=== PATIENT | male | born 1945 | race Caucasian/White ===

== ENCOUNTER 2017-02-26 15:44 | Emergency (ER) | payer MEDICARE, SELFPAY ==
[2017-02-26] MEDS ORDERED: Sodium Chloride 0.9% 10 ML Syringe FLUSH PRN (15:50)
[2017-02-26] MEDS ORDERED: Nitroglycerin 0.4 MG Tab.SL SL PRN (16:00)
--- NOTE | 2017-02-26 16:03 | EDM.PDOC ---
ED HISTORY OF PRESENT ILLNESS - General Chief Complaint: Chest Pain Stated Complaint: Chest pain Time Seen by Provider: 02/26/17 15:50 Source of Information: Reports: Patient History Limitations: Reports: No limitations - History of Present Illness INITIAL COMMENTS - FREE TEXT/NARRATIVE: Patient complains of centralized non-radiating pain in chest present for approximately 24 hours. ROS negative for other complaints. Tried 1 nitro at home but no change. Had stent placed three days ago at [facility]. Patient has had similar pain in past. Rather vague with his history and was not able to say if prior pain in same area was directly linked to cardiac causation. Nothing specifically makes pain better/worse. This includes eating/drinking/ breathing/moving/sitting up/laying down. - Related Data Allergies/ADRs: Allergies Allergy/AdvReac Type Severity Reaction Status Date / Time levofloxacin [From Levaquin] Allergy Dizziness Verified 02/26/17 15:47 Sulfa (Sulfonamide Allergy Cannot Verified 02/26/17 15:47 Antibiotics) Remember Home Meds: Home Meds Aspirin [Halfprin] 81 mg PO MOWEFR 07/29/15 [History] Calcium Carbonate/Vitamin D3 [Calcium 600 + Vit D 200] 1 each PO DAILY 07/29/15 [History] Carvedilol 3.125 mg PO BIDMEALS 07/29/15 [History] Escitalopram [Lexapro] 5 mg PO DAILY 07/29/15 [History] Nitroglycerin [Nitrostat] 0.4 mg SL Q5M PRN 07/29/15 [History] Phenytoin Sodium Extended [Dilantin] 100 mg PO DAILY@07/29/15 [History] Phenytoin Sodium Extended [Dilantin] 200 mg PO BID 07/29/15 [History] Sertraline [Zoloft] 100 mg PO DAILY 07/29/15 [History] Ticagrelor [Brilinta] 90 mg PO BID 07/29/15 [History] Vitamin E 600 cap PO DAILY 07/29/15 [History] atorvaSTATin [Lipitor] 40 mg PO BEDTIME 07/29/15 [History] levETIRAcetam [Keppra] 1,000 mg PO DAILY@15 07/29/15 [History] levETIRAcetam [Keppra] 2,000 mg PO BID 07/29/15 [History] traMADol HCl [Tramadol HCl] 50 mg PO Q6H PRN 07/29/15 [History] Bisacodyl [Dulcolax] 10 mg RC DAILY PRN 02/26/17 [History] Ibuprofen [Motrin] 200 mg PO Q4H PRN 02/26/17 [History] Isosorbide Mononitrate [Imdur] 30 mg PO QAM #30 tab.er 02/26/17 [Rx] Melatonin 3 mg PO BEDTIME PRN 02/26/17 [History] Oxybutynin 5 mg PO BID 02/26/17 [History] Sennosides/Docusate Sodium [Senna S Tablet] 1 each PO BID PRN 02/26/17 [History] Past Medical History Cardiovascular History: Reports: CAD, High cholesterol, Hypertension, Stents, Other (see below) (bradycardia, PVCs,) Respiratory History: Reports: Sleep apnea Gastrointestinal History: Reports: PUD Musculoskeletal History: Reports: Osteoarthritis Neurological History: Reports: Headaches, chronic, Seizure Psychiatric History: Reports: Anxiety, Depression Endocrine/Metabolic History: Reports: Obesity/BMI 30+ Social & Family History - Tobacco Use Smoking Status *Q: Never Smoker - Alcohol Use Days Per Week of Alcohol Use: 0 (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 Denies: Shortness of Breath, Wheezing, Pleuritic Chest Pain, Cough, Sputum, Hemoptysis Cardiovascular: Reports: Chest pain (see HPI). Denies: Lightheadedness, Palpitations, Syncope GI/Abdominal: Reports: No symptoms : Reports: no symptoms Musculoskeletal: Reports: no symptoms Skin: Reports: no symptoms Neurological: Reports: No Symptoms Psychiatric: Reports: No symptoms ED EXAM, GENERAL - Physical Exam Exam: See Below Exam Limited By: No limitations General Appearance: alert, WD/WN, no apparent distress, obese Eye Exam: bilateral eye: EOMI, normal inspection, PERRL Ears: normal external exam, normal canal, hearing grossly normal, normal TMs Nose: normal inspection Throat/Mouth: Normal inspection, Normal lips, Normal oropharynx, Normal voice, No airway compromise Head: atraumatic, normocephalic Neck: normal inspection, supple, non-tender, full range of motion. No: carotid bruit, lymphadenopathy (L), lymphadenopathy (R) Respiratory/Chest: no respiratory distress, lungs clear, normal breath sounds, no accessory muscle use, chest non-tender Cardiovascular: regular rate, rhythm, no edema, no murmur, bradycardia Peripheral Pulses: 2+: radial (L), radial (R), dorsalis pedis (L), dorsalis pedis (R) GI/Abdominal: normal bowel sounds, soft, non tender, no distention (Male) Exam: Deferred Rectal (Males) Exam: Deferred Back Exam: normal inspection. No: CVA tenderness (L), CVA tenderness (R) Extremities: normal inspection, normal range of motion, non-tender, no pedal edema, normal capillary refill Neurological: alert, oriented, CN II-XII intact, normal cognition, normal gait, normal reflexes, no motor/sensory deficits Psychiatric: normal affect, normal mood Skin Exam: Warm, Dry, Intact, Normal color EKG INTERPRETATION EKG Date: 02/26/17 Time: 15:50 Rhythm: NSR Rate (beats/min): 56 [place]: normal P-wave: present QRS: normal ST-T: normal QT: normal Comparison: no change Course - Vital Signs Last Recorded V/S: Last Vital Signs Temp 36.9 C 02/26/17 15:45 Pulse 54 L 02/26/17 18:11 Resp 14 02/26/17 18:11 BP 139/71 02/26/17 18:11 Pulse Ox 100 02/26/17 18:11 - Orders/Labs/Meds Orders: Active Orders 24 hr Category Date Time Status Cardiac Monitoring [RC] . DIRECTED Care 02/26/17 15:50 Active EKG Documentation Completion [RC] ASDIRECTED Care 02/26/17 15:48 Active Oxygen Therapy, ED [RC] ASDIRECTED Care 02/26/17 15:50 Active Peripheral IV Care [RC] . DIRECTED Care 02/26/17 15:50 Active Chest 1V Frontal [CR] Stat Exams 02/26/17 15:49 Taken URINALYSIS W/MICROSCOPIC [UA W/MICROSCOPIC] [URIN] Stat Lab 02/26/17 15:49 Uncollected Sodium Chloride 0.9% [Saline Flush] Med 02/26/17 15:50 Active 10 ml FLUSH ASDIRECTED PRN Peripheral IV Insertion Adult [OM.PC] Routine Oth 02/26/17 15:50 Ordered Medication Orders Sodium Chloride (Saline Flush) 10 ml FLUSH ASDIRECTED PRN PRN Reason: Keep Vein Open Labs: Laboratory Tests 02/26/17 02/26/17 02/26/17 Range/Units 16:05 16:05 16:05 WBC 7.5 (4.0-10.2) K/uL RBC 4.58 (4.33-5.41) M/uL Hgb 13.7 D (13.1-16.8) g/dL Hct 42.8 (39.0-49.0) % MCV 93.4 (84.0-98.0) fL MCH 29.9 (28.2-33.3) pg MCHC 32.0 (31.7-36.0) g/dL RDW 13.1 (11.2-14.1) % Plt Count 273 (150-350) K/uL Neut % (Auto) 57.6 (45.0-80.0) % Lymph % (Auto) 27.5 (10.0-50.0) % Emanuel % (Auto) 11.4 (2.0-14.0) % Eos % (Auto) 2.4 (0.0-5.0) % Baso % (Auto) 1.1 (0.0-2.0) % Neut # (Auto) 4.30 (1.40-7.00) K/uL Lymph # (Auto) 2.05 (0.50-3.50) K/uL Emanuel # (Auto) 0.85 (0.00-1.00) K/uL Eos # (Auto) 0.18 (0.00-0.50) K/uL Baso # (Auto) 0.08 (0.00-0.20) K/uL PT 11.1 (9.8-11.7) SEC INR 1.0 Sodium 140 (136-145) mmol/L Potassium 4.4 (3.5-5.1) mmol/L Chloride 104 (98-107) mmol/L Carbon Dioxide 27.8 (21.0-32.0) mmol/L BUN 18 (7-18) mg/dL Creatinine 0.91 (0.51-1.17) mg/dL Est Cr Clr Drug Dosing 89.11 mL/min Estimated GFR (MDRD) > 60 mL/min Glucose 104 (74-106) mg/dL Calcium 9.1 (8.5-10.1) mg/dL Total Bilirubin 0.2 (0.2-1.0) mg/dL AST 29 (15-37) U/L ALT 48 (12-78) U/L Alkaline Phosphatase 115 (46-116) IU/L Creatine Kinase 66 (26-308) U/L Creatine Kinase Index 1.7 (0.0-2.5) % CK-MB (CK-2) 1.10 (0.00-3.60) ng/mL Troponin I 0.000 (0.000-0.056) ng/mL Total Protein 7.8 (6.4-8.2) g/dL Albumin 3.9 (3.4-5.0) g/dL Meds: Medications Generic Name Dose Route Start Last Admin Trade Name Freq PRN Reason Stop Dose Admin Sodium Chloride 10 ml 02/26/17 15:50 Saline Flush FLUSH ASDIRECTED PRN Keep Vein Open Discontinued Medications Generic Name Dose Route Start Last Admin Trade Name Freq PRN Reason Stop Dose Admin Isosorbide Mononitrate 30 mg 02/26/17 17:57 02/26/17 18:09 Imdur PO 02/26/17 17:58 30 mg ONETIME ONE Administration Nitroglycerin 0.4 mg 02/26/17 16:00 02/26/17 16:10 Nitrostat SL 02/26/17 16:11 0.4 mg Q5M PRN Administration Chest Pain - Radiology Interpretation Free Text/Narrative:: Some blunting of right costo-phrenic border noted otherwise no acute changes. - Re-Assessments/Exams Free Text/Narrative Re-Assessment/Exam: Single Nitro given. Over the course of 20 minutes pain improved and ultimately resolved. Cardiac workup unremarkable. Normal EKG except for Bradycardia. Patient usually has low heart rate and has been noted to have similar rate in past. Noted to dip down to upper 40s while resting in ER and when checked said that he felt fine. Troponin zero. CBC and Chem unremarkable. CK/CKMB negative. Observed. Pain did not return except for brief moment when patient inhaled deeply. Given improvement of pain after Nitro, differential included cardiac etiology. Chest wall pain/GI also continue to be included in differential. Cardiology contacted at [facility]. Discussed patient with . He recommended starting patient on Imdur and OK to send patient home. Plan was conveyed to patient and patient is aware that at this point we are not certain as to specific cause for his pain complaint. Differential discussed. Patient is to watch for any recurrence of pain, and development of any new symptoms such as nausea/diaphoresis/cough/SOB. If pain returns or he notes other acute problems, he is to return to the ER. Otherwise patient is to follow up as scheduled with his primary provider on . Extensive precautions reviewed prior to discharge. Patient is in agreement with above plan. He remained symptom-free. Departure - Departure Time of Disposition: 17:59 Disposition: Home, Self-Care 01 Condition: good Clinical Impression: Chest pain of unknown etiology Prescriptions: Isosorbide Mononitrate [Imdur] 30 mg PO QAM #30 tab.er Instructions: Nonspecific Chest Pain, [id number] Referrals: Tanna Faustin PA [Primary Care Provider] - Forms: ED Department Discharge Additional Instructions: We are not certain what caused your chest pain. Your EKG and labs, as well as workup in the ER did not suggest that your heart was the obvious cause of the pain. Muscle/chest wall and GI tract issues can cause similar pains, as can lung problems. [facility] recommended that we add an additional medication that is for the heart, Imdur. Your first dose was given tonight. 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 Watch for changes such as new symptoms or return of the pain. Please follow up with your doctor later this week to see how you are doing. If you have sudden worsening symptoms, please return to the ER. - My Orders Last 24 Hours: My Active Orders 02/26/17 15:48 EKG Documentation Completion [RC] ASDIRECTED 02/26/17 15:49 Chest 1V Frontal [CR] Stat URINALYSIS W/MICROSCOPIC [UA W/MICROSCOPIC] [URIN] Stat 02/26/17 15:50 Cardiac Monitoring [RC] . DIRECTED Oxygen Therapy, ED [RC] ASDIRECTED Peripheral IV Care [RC] . DIRECTED Sodium Chloride 0.9% [Saline Flush] 10 ml FLUSH ASDIRECTED PRN Peripheral IV Insertion Adult [OM.PC] Routine - Assessment/Plan Last 24 Hours: My Active Orders 02/26/17 15:48 EKG Documentation Completion [RC] ASDIRECTED 02/26/17 15:49 Chest 1V Frontal [CR] Stat URINALYSIS W/MICROSCOPIC [UA W/MICROSCOPIC] [URIN] Stat 02/26/17 15:50 Cardiac Monitoring [RC] . DIRECTED Oxygen Therapy, ED [RC] ASDIRECTED Peripheral IV Care [RC] . DIRECTED Sodium Chloride 0.9% [Saline Flush] 10 ml FLUSH ASDIRECTED PRN Peripheral IV Insertion Adult [OM.PC] Routine
[2017-02-26 16:36] LABS: CHLORIDE,CL 104 mmol/L (98-107); SODIUM,NA 140 mmol/L (136-145)
[2017-02-26] MEDS ORDERED: Isosorbide Mononitrate 30 MG Tab.ER PO ONE (17:57)
[2017-02-26 18:10] VITALS: BP 139/71
== END 2017-02-26 18:35 | disposition home or self-care (01) ==
LOC: LL.ED 15:44
DX: R07.9 Chest pain, unspecified (principal); I25.10 Atherosclerotic heart disease of native coronary artery without angina pectoris; E78.00 Pure hypercholesterolemia, unspecified; I10 Essential (primary) hypertension; F32.9 Major depressive disorder, single episode, unspecified; F41.9 Anxiety disorder, unspecified; E66.9 Obesity, unspecified; M19.90 Unspecified osteoarthritis, unspecified site; Z88.1 Allergy status to other antibiotic agents; Z79.82 Long term (current) use of aspirin; Z79.899 Other long term (current) drug therapy; Z88.2 Allergy status to sulfonamides
CPT/HCPCS: 36000; 36415; 71010; 80053; 82550; 82553; 84484; 85025; 85610; 93005; 99284; 99285; A9270

== ENCOUNTER 2019-08-02 01:22 | Inpatient (IN) | payer MEDICARE, OTHER ==
[2019-08-02] MEDS ORDERED: Nitroglycerin 0.4 MG Tab.SL ONE (01:34)
[2019-08-02] MEDS ORDERED: Nitroglycerin 0.4 MG Tab.SL SL ONE ×2 (01:36→01:47)
[2019-08-02] MEDS ORDERED: GI Cocktail Oral Solution 30 ML PO ONE (01:58)
[2019-08-02] MEDS ORDERED: GI Cocktail Oral Solution 30 ML ONE (02:01)
[2019-08-02 02:17] LABS: CHLORIDE,CL 107 mmol/L (98-107); SODIUM,NA 145 mmol/L (136-145)
--- NOTE | 2019-08-02 02:17 | EDM.PDOC ---
ED HPI GENERAL MEDICAL PROBLEM - General Chief Complaint: Chest Pain Stated Complaint: chest pain Time Seen by Provider: 08/02/19 01:47 Source of Information: Reports: Patient History Limitations: Reports: No Limitations - History of Present Illness INITIAL COMMENTS - FREE TEXT/NARRATIVE: Patient comes to ER with complaint of centralized, substernal chest pain that started at 9:30 pm this evening. Steady pain. Slightly worse with deep breath/ movement. No radiation. Diaphoretic at times. No nausea/emesis. Denies heavy lifting/triggering event. Admits to doing 10 knee pushups for unknown reason after pain apparently started. No other changes. No recent illnesses. No HEENT changes such as headache, sore throat, cold complaints, neck pain. No SOB/cough/wheezing/respiratory changes. No GI changes/bowel complaints/pain/increased burping/heartburn sensation. Took PeptoBismol/antacids without change in pain. No complaints/flank pain/hematuria/urinary changes. Denies neuro changes such as focal weakness/numbness Stents placed in 2016 and 2014 Left Chest Pain Score (Numeric/FACES): 9 - Related Data Allergies Allergy/AdvReac Type Severity Reaction Status Date / Time levofloxacin [From Levaquin] Allergy Dizziness Verified 08/02/19 01:58 Sulfa (Sulfonamide Allergy Cannot Verified 08/02/19 01:58 Antibiotics) Remember Home Meds: Home Meds Aspirin [Halfprin] 81 mg PO MOWEFR 07/29/15 [History] Calcium Carbonate/Vitamin D3 [Calcium 600 + Vit D 200] 1 each PO DAILY 07/29/15 [History] Carvedilol 3.125 mg PO BIDMEALS 07/29/15 [History] Escitalopram [Lexapro] 5 mg PO DAILY 07/29/15 [History] Nitroglycerin [Nitrostat] 0.4 mg SL Q5M PRN 07/29/15 [History] Phenytoin Sodium Extended [Dilantin] 100 mg PO DAILY@15 07/29/15 [History] Phenytoin Sodium Extended [Dilantin] 200 mg PO BID 07/29/15 [History] Sertraline [Zoloft] 100 mg PO DAILY 07/29/15 [History] Ticagrelor [Brilinta] 90 mg PO BID 07/29/15 [History] Vitamin E 600 cap PO DAILY 07/29/15 [History] atorvaSTATin [Lipitor] 40 mg PO BEDTIME 07/29/15 [History] levETIRAcetam [Keppra] 1,000 mg PO DAILY@15 07/29/15 [History] levETIRAcetam [Keppra] 2,000 mg PO BID 07/29/15 [History] traMADol HCl [Tramadol HCl] 50 mg PO Q6H PRN 07/29/15 [History] Bisacodyl [Dulcolax] 10 mg RC DAILY PRN 02/26/17 [History] Ibuprofen [Motrin] 200 mg PO Q4H PRN 02/26/17 [History] Isosorbide Mononitrate [Imdur] 30 mg PO QAM #30 tab.er 02/26/17 [Rx] Melatonin 3 mg PO BEDTIME PRN 02/26/17 [History] Oxybutynin 5 mg PO BID 02/26/17 [History] Sennosides/Docusate Sodium [Senna S Tablet] 1 each PO BID PRN 02/26/17 [History] Clopidogrel Bisulfate [Clopidogrel] 1 tab PO DAILY 08/02/19 [History] Past Medical History Cardiovascular History: Reports: CAD, High Cholesterol, Hypertension, Stents, Other (See Below) Respiratory History: Reports: Sleep Apnea Gastrointestinal History: Reports: PUD Musculoskeletal History: Reports: Osteoarthritis Neurological History: Reports: Headaches, Chronic, Seizure Other Neuro History: 03/10/06 last known seizure Psychiatric History: Reports: Anxiety, Depression Endocrine/Metabolic History: Reports: Obesity/BMI 30+ - Past Surgical History Cardiovascular Surgical History: Reports: Coronary Artery Stent Social & Family History - Tobacco Use Smoking Status *Q: Never Smoker - Caffeine Use Caffeine Use: Reports: Soda (caffeine-free) - Alcohol Use Alcohol Use History: No - Recreational Drug Use Recreational Drug Use: No Drug Use in Last 12 Months: No - Living Situation & Occupation Living situation: Reports: , with Family Occupation: Retired ED ROS GENERAL - Review of Systems Review Of Systems: ROS reveals no pertinent complaints other than HPI. ED EXAM, GENERAL - Physical Exam Exam: See Below Exam Limited By: No Limitations General Appearance: Alert, No Apparent Distress, Obese Eye Exam: Bilateral Eye: EOMI, PERRL Ears: Normal External Exam Nose: No: Nasal Deformity, Nasal Swelling, Nasal Drainage Throat/Mouth: Normal Lips, Normal Voice, No Airway Compromise Head: Atraumatic, Normocephalic Neck: Supple, Non-Tender Respiratory/Chest: No Respiratory Distress, Lungs Clear, Normal Breath Sounds Cardiovascular: Normal Peripheral Pulses, Regular Rate, Rhythm, No Edema, No Murmur Peripheral Pulses: 2+: Radial (L), Radial (R) GI/Abdominal: Normal Bowel Sounds, Soft, Other (mild discomfort with palpation over epigastric area/lower 1/3 sternum, reproduces patient's pain) (Male) Exam: Deferred Rectal (Males) Exam: Deferred Back Exam: No: CVA Tenderness (L), Muscle Spasm, Vertebral Tenderness Extremities: Normal Range of Motion, Non-Tender, No Pedal Edema, Normal Capillary Refill Neurological: Alert, Oriented, Normal Cognition, Normal Gait, No Motor/Sensory Deficits Psychiatric: Normal Affect, Normal Mood Skin Exam: Warm, Dry, Intact, Normal Color, No Rash EKG INTERPRETATION EKG Date: 08/02/19 Time: 01:24 Rhythm: Other (Sinus bradycardia) Rate (Beats/Min): 56 [place]: Normal P-Wave: Present QRS: Normal Comparison: No Change Course - Vital Signs Last Recorded V/S: Last Vital Signs Temp 36.8 C 08/02/19 01:25 Pulse 56 L 08/02/19 01:25 Resp 18 08/02/19 01:25 BP 170/90 H 08/02/19 01:50 Pulse Ox 95 08/02/19 01:25 - Orders/Labs/Meds Orders: Active Orders 24 hr Category Date Time Status Cardiac Monitoring [RC] . DIRECTED Care 08/02/19 01:25 Active EKG Documentation Completion [RC] ASDIRECTED Care 08/02/19 01:24 Active EKG Documentation Completion [RC] ASDIRECTED Care 08/02/19 01:48 Inactive Chest 2V [CR] Stat Exams 08/02/19 01:37 Ordered COMPREHENSIVE METABOLIC PN,CMP [CHEM] Stat Lab 08/02/19 01:48 Ordered D-DIMER QUANTITATIVE [COAG] Stat Lab 08/02/19 01:48 Ordered MG [MAGNESIUM] [CHEM] Stat Lab 08/02/19 01:48 Ordered PRO B-TYPE NATRIUR PEPT,BNPPRO [CHEM] Stat Lab 08/02/19 01:48 Ordered TROPONIN I [CHEM] Stat Lab 08/02/19 01:48 Ordered Sodium Chloride 0.9% [Saline Flush] Med 08/02/19 01:38 Active 10 ml FLUSH ASDIRECTED PRN Saline Lock Insert [OM.PC] Routine Oth 08/02/19 01:38 Ordered Medication Orders Sodium Chloride (Saline Flush) 10 ml FLUSH ASDIRECTED PRN PRN Reason: Keep Vein Open Labs: Laboratory Tests 08/02/19 Range/Units 01:48 WBC 9.2 (4.0-10.2) K/uL RBC 4.19 L (4.33-5.41) M/uL Hgb 12.6 L (13.1-16.8) g/dL Hct 39.7 (39.0-49.0) % MCV 94.7 (84.0-98.0) fL MCH 30.1 (28.2-33.3) pg MCHC 31.7 (31.7-36.0) g/dL RDW 13.7 (11.2-14.1) % Plt Count 246 (150-350) K/uL Neut % (Auto) 50.9 (45.0-80.0) % Lymph % (Auto) 33.4 (10.0-50.0) % [place] % (Auto) 11.5 (2.0-14.0) % Eos % (Auto) 3.3 (0.0-5.0) % Baso % (Auto) 0.9 (0.0-2.0) % Neut # (Auto) 4.66 (1.40-7.00) K/uL Lymph # (Auto) 3.06 (0.50-3.50) K/uL [place] # (Auto) 1.05 H (0.00-1.00) K/uL Eos # (Auto) 0.30 (0.00-0.50) K/uL Baso # (Auto) 0.08 (0.00-0.20) K/uL Meds: Medications Generic Name Dose Route Start Last Admin Trade Name Freq PRN Reason Stop Dose Admin Sodium Chloride 10 ml 08/02/19 01:38 Saline Flush FLUSH ASDIRECTED PRN Keep Vein Open Discontinued Medications Generic Name Dose Route Start Last Admin Trade Name Freq PRN Reason Stop Dose Admin Al Hydroxide/Mg Hydroxide 30 ml 08/02/19 01:58 08/02/19 02:02 Gi Cocktail PO 08/02/19 01:59 30 ml ONETIME ONE Administration Al Hydroxide/Mg Hydroxide Confirm 08/02/19 02:01 08/02/19 02:06 Gi Cocktail Administered 08/02/19 02:02 Not Given Dose 30 ml .ROUTE .STK-MED ONE Nitroglycerin 0.4 mg 08/02/19 01:36 08/02/19 01:50 Nitrostat SL 08/02/19 01:37 0.4 mg ONETIME ONE Administration Nitroglycerin Confirm 08/02/19 01:34 08/02/19 01:51 Nitrostat Administered 08/02/19 01:35 Not Given Dose 0.4 mg .ROUTE .STK-MED ONE Nitroglycerin 0.4 mg 08/02/19 01:47 08/02/19 01:47 Nitrostat SL 08/02/19 01:48 0.4 mg ONETIME ONE Administration - Radiology Interpretation Free Text/Narrative:: Chest xray showed no obvious infiltrated/pneumothorax/acute changes, needs to be reviewed by radiology - Re-Assessments/Exams Free Text/Narrative Re-Assessment/Exam: 08/02/19 02:36 Unremarkable cardiac workup. Negative Troponin/DDimer. No acute EKG changes. First Nitro brought pain from 9-10 down to a 6-7. Second nitro given and no change at all reported by patient. GI cocktail given, no observable change. Pain is worsened by deep breath and reproducible in part with palpation in epigastric area/lower sternum. Differential includes musculoskeletal and GI etiology in addition to cardiac. Patient does have history of peptic ulcer disease in past. Does not appear to have respiratory component at this time. Plan is to admit patient to floor on observation and continue serial Troponin measurements/cardiac rule out. Patient does not have current med list with him. He does have his pill packs that are packed by [employer]. We will use those in the morning and brother will try to look for updated [facility] med list and bring it in. Protonix/Pepcid given. Small dose of MS given to help with continued pain complaint Departure - Departure Time of Disposition: 02:40 Disposition: Refer to Observation Clinical Impression: Chest pain of unknown etiology - Discharge Information *PRESCRIPTION DRUG MONITORING PROGRAM REVIEWED*: Not Applicable *COPY OF PRESCRIPTION DRUG MONITORING REPORT IN PATIENT SAAD: Not Applicable Referrals: Adriane Lay PA-C [Primary Care Provider] - - Problem List & Annotations (1) Chest pain of unknown etiology SNOMED Code(s): 66276046 Code(s): R07.89 - OTHER CHEST PAIN Status: Acute Priority: High Onset Date: 08/01/19 Annotation/Comment:: Some improvement with first Nitro. No change with second Nitro/GI cocktail. Exacerbation with deep breath/palpation over epigastric area and lower sternum. Negative first EKG and Troponin. Protonix and Pepcid given in ER. H.Pylorie testing requested. Serial Troponins ordered/telemetry for r/o [place]. (2) Coronary artery disease SNOMED Code(s): 14573792 Code(s): I25.10 - ATHSCL HEART DISEASE OF [place] CORONARY ARTERY W/O ANG PCTRS Status: Chronic Priority: High Annotation/Comment:: Current low- dose aspirin use/Plavix. Has had stents placed in 2014 and 2016. Qualifiers: Coronary Disease-Associated Artery/Lesion type: [place] artery [place] vs. transplanted heart: [place] heart Associated angina: without angina Qualified Code(s): I25.10 - Atherosclerotic heart disease of [place] coronary artery without angina pectoris (3) Mixed anxiety depressive disorder SNOMED Code(s): 166168606 Code(s): F41.8 - OTHER SPECIFIED ANXIETY DISORDERS Status: Chronic Priority: Low Annotation/Comment:: Stable per patient (4) Sleep apnea SNOMED Code(s): 17484939 Code(s): G47.30 - SLEEP APNEA, UNSPECIFIED Status: Chronic Priority: Low Annotation/Comment:: No CPAP use with chronic insomnia Qualifiers: Sleep apnea type: obstructive Qualified Code(s): G47.33 - Obstructive sleep apnea (adult) (pediatric) (5) Petit mal epilepsy SNOMED Code(s): 62103985, 07652030 Code(s): G40.A09 - ABSENCE EPILEPTIC SYNDROME, NOT INTRACTABLE, W/O STAT EPI Status: Chronic Priority: Low Annotation/Comment:: Stable by patient history. (6) Osteoarthritis SNOMED Code(s): 719792073 Code(s): M19.90 - UNSPECIFIED OSTEOARTHRITIS, UNSPECIFIED SITE Status: Chronic Priority: Low Annotation/Comment:: Stable by patient history Qualifiers: Osteoarthritis location: multiple joints Osteoarthritis type: primary Qualified Code(s): M15.0 - Primary generalized (osteo)arthritis (7) Peptic reflux disease SNOMED Code(s): 844697118 Code(s): K21.9 - GASTRO-ESOPHAGEAL REFLUX DISEASE WITHOUT ESOPHAGITIS Status: Chronic Priority: Medium Annotation/Comment:: Stable by patient history. (8) Chronic headaches SNOMED Code(s): 829807610 Code(s): R51 - HEADACHE Status: Chronic Priority: Low Annotation/ Comment:: No complaint of headache at this time Qualifiers: Headache type: unspecified Intractability: not intractable Qualified Code (s): R51 - Headache - Problem List Review Problem List Initiated/Reviewed/Updated: Yes - My Orders Last 24 Hours: My Active Orders 08/02/19 01:24 EKG Documentation Completion [RC] ASDIRECTED 08/02/19 01:25 Cardiac Monitoring [RC] . DIRECTED 08/02/19 01:37 Chest 2V [CR] Stat 08/02/19 01:38 Sodium Chloride 0.9% [Saline Flush] 10 ml FLUSH ASDIRECTED PRN Saline Lock Insert [OM.PC] Routine 08/02/19 01:48 EKG Documentation Completion [RC] ASDIRECTED COMPREHENSIVE METABOLIC PN,CMP [CHEM] Stat D-DIMER QUANTITATIVE [COAG] Stat MG [MAGNESIUM] [CHEM] Stat PRO B-TYPE NATRIUR PEPT,BNPPRO [CHEM] Stat TROPONIN I [CHEM] Stat - Assessment/Plan Admission H&P: Please use this note as an admission H&P Last 24 Hours: My Active Orders 08/02/19 01:24 EKG Documentation Completion [RC] ASDIRECTED 08/02/19 01:25 Cardiac Monitoring [RC] . DIRECTED 08/02/19 01:37 Chest 2V [CR] Stat 08/02/19 01:38 Sodium Chloride 0.9% [Saline Flush] 10 ml FLUSH ASDIRECTED PRN Saline Lock Insert [OM.PC] Routine 08/02/19 01:48 EKG Documentation Completion [RC] ASDIRECTED COMPREHENSIVE METABOLIC PN,CMP [CHEM] Stat D-DIMER QUANTITATIVE [COAG] Stat MG [MAGNESIUM] [CHEM] Stat PRO B-TYPE NATRIUR PEPT,BNPPRO [CHEM] Stat TROPONIN I [CHEM] Stat Assessment:: as above Plan: as above. Stable and appropriate for general supervision.
[2019-08-02] MEDS ORDERED: Aspirin 81 MG Tab.Chew PO ONE (02:19)
[2019-08-02] MEDS ORDERED: Morphine 2 MG/ML Syringe IVPUSH ONE (02:20)
[2019-08-02] MEDS ORDERED: Ondansetron 4 MG/2 ML SDV IVPUSH ONE (02:20)
[2019-08-02] MEDS ORDERED: Famotidine 20 MG/2 ML SDV IVPUSH ONE (02:32)
[2019-08-02] MEDS ORDERED: Pantoprazole 40 MG Vial IVPUSH ONE (02:32)
[2019-08-02] MEDS ORDERED: Magnesium Oxide 400 MG Tab PO ONE (02:33)
[2019-08-02] MEDS: Sodium Chloride 0.9% 10 ML Syringe FLUSH PRN ×3 (02:36→04:44)
[2019-08-02] MEDS ORDERED: Magnesium Hydroxide 400 MG/5 ML Susp 30 ML Cup PO PRN (02:57)
[2019-08-02] MEDS ORDERED: Acetaminophen 325 MG Tab PO PRN (02:57)
[2019-08-02] MEDS ORDERED: Calcium Carbonate 750 MG Tab.Chew PO SCH (03:00)
[2019-08-02] MEDS ORDERED: Nitroglycerin 0.4 MG Tab.SL SL PRN ×2 (03:03→19:44)
[2019-08-02] MEDS ORDERED: Morphine 2 MG/ML Syringe IVPUSH PRN (03:03)
[2019-08-02] MEDS ORDERED: Ondansetron 4 MG/2 ML SDV IVPUSH PRN (03:05)
[2019-08-02] MEDS ORDERED: Calcium Carbonate 750 MG Tab.Chew PO PRN (03:22)
--- NOTE | 2019-08-02 14:51 | PCM.PN ---
- General Info Date of Service: 08/02/19 Admission Dx/Problem (Free Text): Chest pain at this time patient was ruled out but patient has significant vertigo and very unsteady on his legs I feel that he is so unsteady that I cannot discharge home safely to his house at this time Functional Status: Reports: Tolerating Diet - Review of Systems General: Reports: Other (Very unsteady on his legs) HEENT: Reports: Headaches (Chronic in nature) Pulmonary: Reports: No Symptoms Cardiovascular: Reports: No Symptoms Gastrointestinal: Reports: No Symptoms Genitourinary: Reports: No Symptoms Musculoskeletal: Reports: No Symptoms Neurological: Reports: Dizziness, Difficulty Walking Psychiatric: Reports: Anxiety - Patient Data Vitals - Most Recent: Last Vital Signs Temp 99.8 F 08/02/19 12:00 Pulse 72 08/02/19 12:00 Resp 16 08/02/19 12:00 BP 175/76 H 08/02/19 12:00 Pulse Ox 96 08/02/19 12:00 Weight - Most Recent: 306 lb 9.6 oz I&O - Last 24 Hours: Intake & Output 08/01/19 08/02/19 08/02/19 22:59 06:59 14:59 Intake Total 100 Balance 100 Lab Results Last 24 Hours: Laboratory Results - last 24 hr 08/02/19 08/02/19 08/02/19 Range/Units 01:48 01:48 01:48 WBC 9.2 (4.0-10.2) K/uL RBC 4.19 L (4.33-5.41) M/uL Hgb 12.6 L (13.1-16.8) g/dL Hct 39.7 (39.0-49.0) % MCV 94.7 (84.0-98.0) fL MCH 30.1 (28.2-33.3) pg MCHC 31.7 (31.7-36.0) g/dL RDW 13.7 (11.2-14.1) % Plt Count 246 (150-350) K/uL Neut % (Auto) 50.9 (45.0-80.0) % Lymph % (Auto) 33.4 (10.0-50.0) % [place] % (Auto) 11.5 (2.0-14.0) % Eos % (Auto) 3.3 (0.0-5.0) % Baso % (Auto) 0.9 (0.0-2.0) % Neut # (Auto) 4.66 (1.40-7.00) K/uL Lymph # (Auto) 3.06 (0.50-3.50) K/uL [place] # (Auto) 1.05 H (0.00-1.00) K/uL Eos # (Auto) 0.30 (0.00-0.50) K/uL Baso # (Auto) 0.08 (0.00-0.20) K/uL D-Dimer, Quantitative < 100 (0-400) ng/mL Sodium 145 (136-145) mmol/L Potassium 3.7 (3.5-5.1) mmol/L Chloride 107 (98-107) mmol/L Carbon Dioxide 28.9 (21.0-32.0) mmol/L BUN 17 (7-18) mg/dL Creatinine 0.86 (0.51-1.17) mg/dL Est Cr Clr Drug Dosing 90.27 mL/min Estimated GFR (MDRD) > 60 mL/min Glucose 136 H (74-106) mg/dL Calcium 8.7 (8.5-10.1) mg/dL Magnesium 1.8 (1.8-2.4) mg/dL Total Bilirubin 0.2 (0.2-1.0) mg/dL AST 14 L (15-37) U/L ALT 22 (12-78) U/L Alkaline Phosphatase 134 H (46-116) IU/L Troponin I 0.000 (0.000-0.056) ng/mL NT-Pro-B Natriuret Pep 14 (0-125) pg/mL Total Protein 7.0 (6.4-8.2) g/dL Albumin 3.3 L (3.4-5.0) g/dL 08/02/19 08/02/19 Range/Units 07:20 13:45 WBC (4.0-10.2) K/uL RBC (4.33-5.41) M/uL Hgb (13.1-16.8) g/dL Hct (39.0-49.0) % MCV (84.0-98.0) fL MCH (28.2-33.3) pg MCHC (31.7-36.0) g/dL RDW (11.2-14.1) % Plt Count (150-350) K/uL Neut % (Auto) (45.0-80.0) % Lymph % (Auto) (10.0-50.0) % [place] % (Auto) (2.0-14.0) % Eos % (Auto) (0.0-5.0) % Baso % (Auto) (0.0-2.0) % Neut # (Auto) (1.40-7.00) K/uL Lymph # (Auto) (0.50-3.50) K/uL [place] # (Auto) (0.00-1.00) K/uL Eos # (Auto) (0.00-0.50) K/uL Baso # (Auto) (0.00-0.20) K/uL D-Dimer, Quantitative (0-400) ng/mL Sodium (136-145) mmol/L Potassium (3.5-5.1) mmol/L Chloride (98-107) mmol/L Carbon Dioxide (21.0-32.0) mmol/L BUN (7-18) mg/dL Creatinine (0.51-1.17) mg/dL Est Cr Clr Drug Dosing mL/min Estimated GFR (MDRD) mL/min Glucose (74-106) mg/dL Calcium (8.5-10.1) mg/dL Magnesium (1.8-2.4) mg/dL Total Bilirubin (0.2-1.0) mg/dL AST (15-37) U/L ALT (12-78) U/L Alkaline Phosphatase (46-116) IU/L Troponin I 0.000 0.000 (0.000-0.056) ng/mL NT-Pro-B Natriuret Pep (0-125) pg/mL Total Protein (6.4-8.2) g/dL Albumin (3.4-5.0) g/dL Med Orders - Current: Current Medications Acetaminophen (Tylenol) 650 mg PO Q4H PRN PRN Reason: analgesia/fever Calcium Carbonate/Glycine (Tums Extra Strength) 750 mg PO Q4H PRN PRN Reason: Dyspepsia Last Admin: 08/02/19 04:44 Dose: 750 mg Magnesium Hydroxide (Milk Of Magnesia) 30 ml PO BID PRN PRN Reason: Constipation Morphine Sulfate (Morphine) 2 mg IVPUSH Q1H PRN PRN Reason: Pain Last Admin: 08/02/19 04:43 Dose: 2 mg Nitroglycerin (Nitrostat) 0.4 mg SL Q5M PRN PRN Reason: Chest Pain Ondansetron HCl (Zofran) 4 mg IVPUSH Q6H PRN PRN Reason: Nausea/Vomiting Sodium Chloride (Saline Flush) 10 ml FLUSH ASDIRECTED PRN PRN Reason: Keep Vein Open Last Admin: 08/02/19 04:44 Dose: 10 ml Discontinued Medications Al Hydroxide/Mg Hydroxide (Gi Cocktail) 30 ml PO ONETIME ONE Stop: 08/02/19 01:59 Last Admin: 08/02/19 02:02 Dose: 30 ml Al Hydroxide/Mg Hydroxide (Gi Cocktail) Confirm Administered Dose 30 ml .ROUTE .STK-MED ONE Stop: 08/02/19 02:02 Last Admin: 08/02/19 02:06 Dose: Not Given Aspirin (Aspirin) 324 mg PO ONETIME ONE Stop: 08/02/19 02:20 Last Admin: 08/02/19 02:34 Dose: 324 mg Calcium Carbonate/Glycine (Tums Extra Strength) 750 mg PO Q4H JALEN Last Admin: 08/02/19 03:23 Dose: Not Given Famotidine (Pepcid) 20 mg IVPUSH ONETIME ONE Stop: 08/02/19 02:33 Last Admin: 08/02/19 02:49 Dose: 20 mg Magnesium Oxide (Magnesium Oxide) 800 mg PO ONETIME ONE Stop: 08/02/19 02:34 Last Admin: 08/02/19 02:47 Dose: 800 mg Morphine Sulfate (Morphine) 2 mg IVPUSH ONETIME ONE Stop: 08/02/19 02:21 Last Admin: 08/02/19 02:36 Dose: 2 mg Nitroglycerin (Nitrostat) 0.4 mg SL ONETIME ONE Stop: 08/02/19 01:37 Last Admin: 08/02/19 01:50 Dose: 0.4 mg Nitroglycerin (Nitrostat) Confirm Administered Dose 0.4 mg .ROUTE .STK-MED ONE Stop: 08/02/19 01:35 Last Admin: 08/02/19 01:51 Dose: Not Given Nitroglycerin (Nitrostat) 0.4 mg SL ONETIME ONE Stop: 08/02/19 01:48 Last Admin: 08/02/19 01:47 Dose: 0.4 mg Ondansetron HCl (Zofran) 4 mg IVPUSH ONETIME ONE Stop: 08/02/19 02:21 Last Admin: 08/02/19 02:34 Dose: 4 mg Pantoprazole Sodium (Protonix Iv) 40 mg IVPUSH ONETIME ONE Stop: 08/02/19 02:33 Last Admin: 08/02/19 02:50 Dose: 40 mg - Exam General: Moderate Distress HEENT: Pupils Equal, Pupils Reactive, EOMI, Mucous Membr. Moist/[place] Lungs: Clear to Auscultation, Normal Respiratory Effort Cardiovascular: Regular Rate, Regular Rhythm GI/Abdominal Exam: Normal Bowel Sounds, Soft, Non-Tender, No Organomegaly, No Distention, No Abnormal Bruit, No Mass, Pelvis Stable (Male) Exam: Deferred Back Exam: Normal Inspection, Decreased Range of Motion, Muscle Spasm Extremities: Normal Inspection, Normal Range of Motion, Non-Tender, No Pedal Edema, Normal Capillary Refill Skin: Warm, Dry, Intact Neurological: No: Normal Gait - Problem List & Annotations (1) Cerebral vascular accident SNOMED Code(s): 825808683 Code(s): I63.9 - CEREBRAL INFARCTION, UNSPECIFIED Status: Acute Current Visit: Yes (2) Chronic headaches SNOMED Code(s): 238161910 Code(s): R51 - HEADACHE Status: Chronic Priority: Low Current Visit: No Qualifiers: Headache type: unspecified Intractability: not intractable Qualified Code (s): R51 - Headache Annotation/Comment:: No complaint of headache at this time - Problem List Review Problem List Initiated/Reviewed/Updated: Yes
[2019-08-02] MEDS ORDERED: Bisacodyl 10 MG Supp PRN (19:44)
[2019-08-02] MEDS ORDERED: DOXYLAMINE SUCCINATE 25 MG PO PRN (19:44)
[2019-08-02] MEDS ORDERED: atorvaSTATin 40 MG Tab PO SCH (20:00)
[2019-08-02] MEDS ORDERED: atorvaSTATin 40 MG Tab **OWN MED PO ONE (22:15)
[2019-08-02] MEDS: Carvedilol 3.125 MG Tab PO SCH (22:48)
[2019-08-02] MEDS: Carbamide Peroxide 6.5% Otic Soln 15 ML Bottle EARBOTH SCH (22:49)
[2019-08-02] MEDS: KEPPRA 1000 MG PO SCH (22:50)
[2019-08-02] MEDS: DILANTIN 100 MG PO SCH (22:50)
[2019-08-02] MEDS: Ibuprofen 400 MG Tab PO PRN (22:52)
[2019-08-02] MEDS: Melatonin 3 MG Tab PO PRN (22:52)
[2019-08-03] MEDS: KEPPRA 1000 MG PO SCH ×3 (07:32→23:32)
[2019-08-03] MEDS: DILANTIN 100 MG PO SCH ×2 (07:34→23:32)
[2019-08-03 07:51] LABS: CHLORIDE,CL 105 mmol/L (98-107); SODIUM,NA 144 mmol/L (136-145)
[2019-08-03] MEDS ORDERED: levETIRAcetam 500 MG Tab PO SCH ×2 (08:00→15:00)
[2019-08-03] MEDS ORDERED: Phenytoin 100 MG Cap.ER PO SCH (08:00)
[2019-08-03] MEDS ORDERED: ESCITALOPRAM 5 MG PO SCH (08:00)
[2019-08-03] MEDS: Cyanocobalamin (Vitamin B12) 1,000 MCG Tab PO SCH (08:24)
[2019-08-03] MEDS: Carvedilol 6.25 MG Tab PO SCH (08:24)
[2019-08-03] MEDS: Clopidogrel 75 MG Tab PO SCH (08:24)
[2019-08-03] MEDS: Aspirin 81 MG Tab.EC PO SCH (08:24)
[2019-08-03] MEDS: Calcium Carbonate/Vitamin D3 1500 MG-400 Units Tab PO SCH (08:24)
[2019-08-03] MEDS: Carbamide Peroxide 6.5% Otic Soln 15 ML Bottle EARBOTH SCH ×4 (08:25→19:17)
[2019-08-03] MEDS: Ascorbic Acid 500 MG Tab PO SCH (08:25)
[2019-08-03] MEDS ORDERED: DILANTIN 100 MG PO SCH (15:00)
[2019-08-03] MEDS: atorvaSTATin 40 MG Tab PO SCH (19:18)
[2019-08-03] MEDS: Carvedilol 3.125 MG Tab PO SCH (19:18)
--- NOTE | 2019-08-03 19:24 | PCM.PN ---
- General Info Date of Service: 08/03/19 Functional Status: Reports: New Symptoms (Patient was admitted secondary to chest pain for rule out he was ruled out but was noted at the time of discharge that he was very unsteady on his feet and generalized weakness he did have history of a possible seizure at child and a accident and this is been playing him for a long time he has been to physical therapy but appears a danger to himself at this time he also had a temperature of unknown etiology we worked him up urine was negative chest was negative culture still pending) - Review of Systems General: Reports: Fever, Weakness, Fatigue HEENT: Reports: No Symptoms Pulmonary: Reports: No Symptoms Cardiovascular: Reports: No Symptoms Gastrointestinal: Reports: No Symptoms Genitourinary: Reports: No Symptoms Musculoskeletal: Reports: No Symptoms Skin: Reports: No Symptoms Neurological: Reports: Dizziness, Pre-Existing Deficit, Seizure, Difficulty Walking, Gait Disturbance Psychiatric: Reports: No Symptoms - Patient Data Vitals - Most Recent: Last Vital Signs Temp 99 F 08/03/19 16:00 Pulse 67 08/03/19 16:00 Resp 16 08/03/19 16:00 BP 124/64 08/03/19 16:00 Pulse Ox 92 L 08/03/19 16:00 Weight - Most Recent: 306 lb 9.6 oz I&O - Last 24 Hours: Intake & Output 08/03/19 08/03/19 08/03/19 06:59 14:59 22:59 Intake Total 100 360 120 Balance 100 360 120 Imaging Impressions - Last 24 Hours: CT done last night revealed no acute bleed no major changes compared with 2006. Consistent Lab Results Last 24 Hours: Laboratory Results - last 24 hr 08/02/19 08/03/19 08/03/19 Range/Units 20:55 07:25 07:25 WBC 15.3 H (4.0-10.2) K/uL RBC 4.11 L (4.33-5.41) M/uL Hgb 12.5 L (13.1-16.8) g/dL Hct 38.4 L (39.0-49.0) % MCV 93.4 (84.0-98.0) fL MCH 30.4 (28.2-33.3) pg MCHC 32.6 (31.7-36.0) g/dL RDW 13.5 (11.2-14.1) % Plt Count 203 (150-350) K/uL Neut % (Auto) 68.0 (45.0-80.0) % Lymph % (Auto) 17.2 (10.0-50.0) % [place] % (Auto) 13.8 (2.0-14.0) % Eos % (Auto) 0.5 (0.0-5.0) % Baso % (Auto) 0.5 (0.0-2.0) % Neut # (Auto) 10.43 H (1.40-7.00) K/uL Lymph # (Auto) 2.64 (0.50-3.50) K/uL [place] # (Auto) 2.11 H (0.00-1.00) K/uL Eos # (Auto) 0.08 (0.00-0.50) K/uL Baso # (Auto) 0.07 (0.00-0.20) K/uL Sodium 144 (136-145) mmol/L Potassium 3.4 L (3.5-5.1) mmol/L Chloride 105 (98-107) mmol/L Carbon Dioxide 30.2 (21.0-32.0) mmol/L BUN 16 (7-18) mg/dL Creatinine 0.91 (0.51-1.17) mg/dL Est Cr Clr Drug Dosing 85.31 mL/min Estimated GFR (MDRD) > 60 mL/min Glucose 140 H (74-106) mg/dL Calcium 8.9 (8.5-10.1) mg/dL Total Bilirubin 0.7 (0.2-1.0) mg/dL AST 11 L (15-37) U/L ALT 18 (12-78) U/L Alkaline Phosphatase 100 (46-116) IU/L Total Protein 6.7 (6.4-8.2) g/dL Albumin 3.1 L (3.4-5.0) g/dL Specimen Type Urincc Urine Color Yellow Urine Appearance Clear Urine pH 6.5 (5.0-9.0) Ur Specific [place] 1.010 (1.005-1.030) Urine Protein Negative (NEGATIVE) mg/dL Urine Glucose (UA) Negative (NEGATIVE) mg/dL Urine Ketones Negative (NEGATIVE) mg/dL Urine Occult Blood Trace-lysed H (NEGATIVE) Urine Nitrite Negative (NEGATIVE) Urine Bilirubin Negative (NEGATIVE) Urine Urobilinogen 0.2 (0.2-1.0) E.U./dL Ur Leukocyte Esterase Negative (NEGATIVE) Urine RBC 0-5 /HPF Urine WBC 0-5 /HPF Ur Epithelial Cells Few /LPF Urine Bacteria Rare (NONE TO FEW) /HPF Med Orders - Current: Current Medications Ascorbic Acid (Vitamin C) 1,000 mg PO DAILY [facility] Last Admin: 08/03/19 08:25 Dose: 1,000 mg Aspirin (Halfprin) 81 mg PO DAILY [facility] Last Admin: 08/03/19 08:24 Dose: 81 mg Atorvastatin Calcium (Lipitor) 40 mg PO BEDTIME [facility] Bisacodyl (Dulcolax) 10 mg .XX DAILY PRN PRN Reason: Constipation Calcium Carbonate (Caltrate 600+D 1500 Mg-400 Units) 1 tab PO DAILY [facility] Last Admin: 08/03/19 08:24 Dose: 1 tab Calcium Carbonate/Glycine (Tums Extra Strength) 750 mg PO Q4H PRN PRN Reason: Dyspepsia Last Admin: 08/02/19 04:44 Dose: 750 mg Carbamide Perox/Anhydrous Glycerin (Debrox 6.5% Otic Soln) 0 ml EARBOTH QID [facility] Stop: 08/05/19 16:01 Last Admin: 08/03/19 15:28 Dose: 4 drop Carvedilol (Coreg) 3.125 mg PO BEDTIME [facility] Last Admin: 08/02/19 22:48 Dose: Not Given Carvedilol (Coreg) 6.25 mg PO DAILY [facility] Last Admin: 08/03/19 08:24 Dose: 6.25 mg Clopidogrel Bisulfate (Plavix) 75 mg PO DAILY [facility] Last Admin: 08/03/19 08:24 Dose: 75 mg Cyanocobalamin (Vitamin B12) 1,000 mcg PO DAILY [facility] Last Admin: 08/03/19 08:24 Dose: 1,000 mcg Diphenhydramine HCl (Benadryl) 25 mg PO BEDTIME PRN PRN Reason: Insomnia Ibuprofen (Motrin) 400 mg PO Q6H PRN PRN Reason: fever/pain Last Admin: 08/02/19 22:52 Dose: 400 mg Magnesium Hydroxide (Milk Of Magnesia) 30 ml PO BID PRN PRN Reason: Constipation Last Admin: 08/03/19 11:50 Dose: 30 ml Melatonin (Melatonin) 3 mg PO BEDTIME PRN PRN Reason: Insomnia Last Admin: 08/02/19 22:52 Dose: 3 mg Morphine Sulfate (Morphine) 2 mg IVPUSH Q1H PRN PRN Reason: Pain Last Admin: 08/02/19 04:43 Dose: 2 mg Nitroglycerin (Nitrostat) 0.4 mg SL Q5M PRN PRN Reason: Chest Pain Ondansetron HCl (Zofran) 4 mg IVPUSH Q6H PRN PRN Reason: Nausea/Vomiting Keppra 1000mg Tab * (*Own Med) 0 each PO BID@0730,2330 [facility] Last Admin: 08/03/19 07:32 Dose: 2 each Keppra 1000mg Tab * (*Own Med) 0 each PO DAILY@1500 [facility] Last Admin: 08/03/19 15:28 Dose: 1 each Escitalopram 5mg Tab (Own Med) 0 each PO DAILY@22 JALEN Phenytoin Sodium (Phenytoin) 100 mg PO DAILY@15 [facility] Last Admin: 08/03/19 15:27 Dose: 100 mg Phenytoin Sodium (Phenytoin) 0 mg PO BID@0730,2330 [facility] Last Admin: 08/03/19 07:34 Dose: 200 mg Senna/Docusate Sodium (Senna Plus) 1 tab PO BID PRN PRN Reason: Constipation Sodium Chloride (Saline Flush) 10 ml FLUSH ASDIRECTED PRN PRN Reason: Keep Vein Open Last Admin: 08/02/19 04:44 Dose: 10 ml Discontinued Medications Acetaminophen (Tylenol) 650 mg PO Q4H PRN PRN Reason: analgesia/fever Al Hydroxide/Mg Hydroxide (Gi Cocktail) 30 ml PO ONETIME ONE Stop: 08/02/19 01:59 Last Admin: 08/02/19 02:02 Dose: 30 ml Al Hydroxide/Mg Hydroxide (Gi Cocktail) Confirm Administered Dose 30 ml .ROUTE .STK-MED ONE Stop: 08/02/19 02:02 Last Admin: 08/02/19 02:06 Dose: Not Given Aspirin (Aspirin) 324 mg PO ONETIME ONE Stop: 08/02/19 02:20 Last Admin: 08/02/19 02:34 Dose: 324 mg Aspirin (Halfprin) 81 mg PO MoWeFr@0800 [facility] Atorvastatin Calcium (Lipitor) 40 mg PO ONETIME ONE Stop: 08/02/19 22:16 Last Admin: 08/02/19 22:51 Dose: 40 mg Calcium Carbonate/Glycine (Tums Extra Strength) 750 mg PO Q4H [facility] Last Admin: 08/02/19 03:23 Dose: Not Given Famotidine (Pepcid) 20 mg IVPUSH ONETIME ONE Stop: 08/02/19 02:33 Last Admin: 08/02/19 02:49 Dose: 20 mg Levetiracetam (Keppra) 2,000 mg PO BID@0800,2000 [facility] Magnesium Oxide (Magnesium Oxide) 800 mg PO ONETIME ONE Stop: 08/02/19 02:34 Last Admin: 08/02/19 02:47 Dose: 800 mg Morphine Sulfate (Morphine) 2 mg IVPUSH ONETIME ONE Stop: 08/02/19 02:21 Last Admin: 08/02/19 02:36 Dose: 2 mg Nitroglycerin (Nitrostat) 0.4 mg SL ONETIME ONE Stop: 08/02/19 01:37 Last Admin: 08/02/19 01:50 Dose: 0.4 mg Nitroglycerin (Nitrostat) Confirm Administered Dose 0.4 mg .ROUTE .STK-MED ONE Stop: 08/02/19 01:35 Last Admin: 08/02/19 01:51 Dose: Not Given Nitroglycerin (Nitrostat) 0.4 mg SL ONETIME ONE Stop: 08/02/19 01:48 Last Admin: 08/02/19 01:47 Dose: 0.4 mg Non-Formulary Medication (Doxylamine Succinate [Unisom Sleep Aid]) 25 mg PO BEDTIME PRN PRN Reason: Insomnia Ondansetron HCl (Zofran) 4 mg IVPUSH ONETIME ONE Stop: 08/02/19 02:21 Last Admin: 08/02/19 02:34 Dose: 4 mg Pantoprazole Sodium (Protonix Iv) 40 mg IVPUSH ONETIME ONE Stop: 08/02/19 02:33 Last Admin: 08/02/19 02:50 Dose: 40 mg Escitalopram 5mg Tab (Own Med) 0 each PO DAILY [facility] Phenytoin Sodium (Phenytoin) 200 mg PO BID JALEN - Exam General: Alert, No Acute Distress HEENT: Pupils Equal, Pupils Reactive, EOMI, Mucous Membr. Moist/[place] Lungs: Clear to Auscultation, Normal Respiratory Effort Cardiovascular: Regular Rate, Regular Rhythm GI/Abdominal Exam: Normal Bowel Sounds, Soft, Non-Tender, No Organomegaly, No Distention, No Abnormal Bruit, No Mass, Pelvis Stable (Male) Exam: Deferred Back Exam: Normal Inspection, Decreased Range of Motion Extremities: Limited Range of Motion Skin: Warm, Dry, Intact Neurological: Normal Speech, Other (Generalized weakness of lower start body) Psy/Mental Status: Alert, Normal Affect, Normal Mood - Problem List & Annotations (1) Cerebral vascular accident SNOMED Code(s): 389841008 Code(s): I63.9 - CEREBRAL INFARCTION, UNSPECIFIED Status: Acute Current Visit: Yes (2) Chronic headaches SNOMED Code(s): 568826114 Code(s): R51 - HEADACHE Status: Chronic Priority: Low Current Visit: No Qualifiers: Headache type: unspecified Intractability: not intractable Qualified Code (s): R51 - Headache Annotation/Comment:: No complaint of headache at this time (3) Generalized weakness SNOMED Code(s): 81871645 Code(s): R53.1 - WEAKNESS Status: Acute Current Visit: Yes Annotation/ Comment:: Patient having a hard time ambulating from bed to bathroom needed up to 2 assistance (4) Fever SNOMED Code(s): 539229098 Code(s): R50.9 - FEVER, UNSPECIFIED Status: Acute Current Visit: Yes Annotation/Comment:: Patient has had low-grade temperature for the last 24 hours with increase in white count workup essentially negative up to this time we'll start him on broad-spectrum antibiotic to this to see if this is the cause of his generalized weakness cultures are pending - Problem List Review Problem List Initiated/Reviewed/Updated: Yes - My Orders Last 24 Hours: My Active Orders 08/02/19 19:44 Bisacodyl [Dulcolax] 10 mg .XX DAILY PRN Docusate Sodium/Sennosides [Senna Plus] 1 tab PO BID PRN Melatonin 3 mg PO BEDTIME PRN 08/02/19 20:00 Carvedilol [Coreg] 3.125 mg PO BEDTIME 08/02/19 20:29 Urinary Catheter Assessment [RC] ASDIRECTED 08/02/19 20:30 Insert Urinary Catheter [OM.PC] Q24H 08/02/19 20:35 CULTURE BLOOD [BC] Routine 08/02/19 21:09 CULTURE BLOOD [BC] Routine 08/02/19 21:11 Carbamide Peroxide [Debrox 6.5% Otic Soln] 0 ml EARBOTH QID 08/02/19 22:25 Ibuprofen [Motrin] 400 mg PO Q6H PRN 08/02/19 23:23 diphenhydrAMINE [Benadryl] 25 mg PO BEDTIME PRN 08/02/19 23:30 Patient's Own Medication [Ptom] 0 each PO BID@0730,2330 Phenytoin 0 mg PO BID@0730,2330 08/03/19 08:00 Ascorbic Acid [Vitamin C] 1,000 mg PO DAILY Aspirin [Halfprin] 81 mg PO DAILY Calcium Carbonate/Vitamin D3 [Caltrate 600+D 1500 MG-400 Units] 1 tab PO DAILY Carvedilol [Coreg] 6.25 mg PO DAILY Clopidogrel [Plavix] 75 mg PO DAILY Cyanocobalamin (Vitamin B12) [Vitamin B12] 1,000 mcg PO DAILY 08/03/19 15:00 Patient's Own Medication [Ptom] 0 each PO DAILY@1500 Phenytoin 100 mg PO DAILY@15 08/03/19 20:00 atorvaSTATin [Lipitor] 40 mg PO BEDTIME 08/03/19 22:00 Patient's Own Medication [Ptom] 0 each PO DAILY@22
[2019-08-03] MEDS ORDERED: Piperacillin/Tazobactam 4.5 GM in Sodium Chloride 0.9% 100 ML IV SCH ×2 (19:45→20:00)
[2019-08-03] MEDS: ESCITALOPRAM 5 MG PO SCH (21:58)
[2019-08-03] MEDS: Sodium Chloride 0.9% 10 ML Syringe FLUSH PRN (21:59)
[2019-08-03] MEDS: Piperacillin/Tazobactam 4.5 GM in Sodium Chloride 0.9% 100 ML IV SCH (21:59)
[2019-08-03] MEDS: Melatonin 3 MG Tab PO PRN (22:14)
[2019-08-03] MEDS: diphenhydrAMINE 25 MG Cap PO PRN (22:14)
[2019-08-04] MEDS: Piperacillin/Tazobactam 4.5 GM in Sodium Chloride 0.9% 100 ML IV SCH ×4 (04:31→22:33)
[2019-08-04] MEDS: Sodium Chloride 0.9% 10 ML Syringe FLUSH PRN ×3 (04:32→22:34)
[2019-08-04] MEDS: Ibuprofen 400 MG Tab PO PRN (05:06)
[2019-08-04] MEDS: KEPPRA 1000 MG PO SCH ×3 (07:46→23:15)
[2019-08-04] MEDS: DILANTIN 100 MG PO SCH ×3 (07:46→23:16)
[2019-08-04] MEDS: Aspirin 81 MG Tab.EC PO SCH (07:49)
[2019-08-04] MEDS: Cyanocobalamin (Vitamin B12) 1,000 MCG Tab PO SCH (07:49)
[2019-08-04] MEDS: Carvedilol 6.25 MG Tab PO SCH (07:50)
[2019-08-04] MEDS: Ascorbic Acid 500 MG Tab PO SCH (07:52)
[2019-08-04] MEDS: Carbamide Peroxide 6.5% Otic Soln 15 ML Bottle EARBOTH SCH ×4 (07:53→19:52)
[2019-08-04] MEDS: Clopidogrel 75 MG Tab PO SCH (07:53)
[2019-08-04 07:58] LABS: CHLORIDE,CL 103 mmol/L (98-107); SODIUM,NA 143 mmol/L (136-145)
[2019-08-04] MEDS: Calcium Carbonate/Vitamin D3 1500 MG-400 Units Tab PO SCH (07:58)
[2019-08-04] MEDS ORDERED: Aspirin 81 MG Tab.EC PO SCH (08:00)
[2019-08-04] MEDS ORDERED: Meclizine 25 MG Tab PO ONE (13:41)
--- NOTE | 2019-08-04 14:02 | PCM.PN ---
- General Info Date of Service: 08/04/19 Admission Dx/Problem (Free Text): Patient admitted to observation from ER for chest pain protocol/rule out [place]. Unremarkable labs, however patient noted to be very dizzy to the point of not being able to ambulate on own safely. Unable to safely discharge home. Noted to develop elevated WBC and low grade temp. No specific focal infection noted. Started on empirical antibiotic coverage. Patient does report having intermittent problems with lightheadedness/vertigo over the last few years. Does not take Meclizine for this. Subjective Update: Patient feeling improved. Did fall yesterday when he tried to get out of bed on own. Denies injury from that incident. Functional Status: Reports: Pain Controlled, Tolerating Diet, Ambulating (with assistance. Refuses walker for assist in balance/support), Urinating. Denies: New Symptoms - Review of Systems General: Denies: Fever, Weakness, Malaise, Chills, Night Sweats HEENT: Reports: Other (Has chronic nasal congestion). Denies: Ear Pain, Eye Pain, Headaches, Sinus Congestion, Sore Throat, Visual Changes Cardiovascular: Denies: Chest Pain, Palpitations, Dyspnea on Exertion, Orthopnea , Edema, Lightheadedness Gastrointestinal: Reports: No Symptoms Genitourinary: Reports: No Symptoms Musculoskeletal: Reports: Other (no acute changes from baseline) Skin: Denies: Bruising, Rash Neurological: Reports: Dizziness (recent dizziness, but much improved today), Pre-Existing Deficit (left sided weakness from previous stroke), Other (Has issues with his left sided weakness with ambulation, also peripheral neuropathy from diabetes. ). Denies: Confusion, Headache, Trouble Speaking, Change in Speech Psychiatric: Reports: No Symptoms - Patient Data Vitals - Most Recent: Last Vital Signs Temp 36.6 C 08/04/19 11:15 Pulse 61 08/04/19 11:15 Resp 16 08/04/19 11:15 BP 139/73 08/04/19 11:15 Pulse Ox 93 L 08/04/19 07:53 Weight - Most Recent: 139.071 kg I&O - Last 24 Hours: Intake & Output 08/03/19 08/04/19 08/04/19 22:59 06:59 14:59 Intake Total 120 300 700 Balance 120 300 700 Lab Results Last 24 Hours: Laboratory Results - last 24 hr 08/03/19 08/04/19 08/04/19 Range/Units 07:25 07:15 07:15 WBC 13.7 H (4.0-10.2) K/uL RBC 3.97 L (4.33-5.41) M/uL Hgb 12.0 L (13.1-16.8) g/dL Hct 37.2 L (39.0-49.0) % MCV 93.7 (84.0-98.0) fL MCH 30.2 (28.2-33.3) pg MCHC 32.3 (31.7-36.0) g/dL RDW 13.3 (11.2-14.1) % Plt Count 201 (150-350) K/uL Neut % (Auto) 67.3 (45.0-80.0) % Lymph % (Auto) 20.0 (10.0-50.0) % [place] % (Auto) 11.6 (2.0-14.0) % Eos % (Auto) 0.7 (0.0-5.0) % Baso % (Auto) 0.4 (0.0-2.0) % Neut # (Auto) 9.21 H (1.40-7.00) K/uL Lymph # (Auto) 2.73 (0.50-3.50) K/uL [place] # (Auto) 1.59 H (0.00-1.00) K/uL Eos # (Auto) 0.09 (0.00-0.50) K/uL Baso # (Auto) 0.06 (0.00-0.20) K/uL Sodium 143 (136-145) mmol/L Potassium 3.6 (3.5-5.1) mmol/L Chloride 103 (98-107) mmol/L Carbon Dioxide 30.5 (21.0-32.0) mmol/L BUN 15 (7-18) mg/dL Creatinine 0.91 (0.51-1.17) mg/dL Est Cr Clr Drug Dosing 85.35 mL/min Estimated GFR (MDRD) > 60 mL/min Glucose 135 H (74-106) mg/dL Calcium 8.9 (8.5-10.1) mg/dL Total Bilirubin 0.5 (0.2-1.0) mg/dL AST 16 (15-37) U/L ALT 19 (12-78) U/L Alkaline Phosphatase 89 (46-116) IU/L Total Protein 6.8 (6.4-8.2) g/dL Albumin 2.9 L (3.4-5.0) g/dL Phenytoin 25 H (10-20) ug/dL Jose Antonio Results Last 24 Hours: Microbiology 08/02/19 21:09 Aerobic Blood Culture - Preliminary Blood NO GROWTH AFTER 1 DAY Anaerobic Blood Culture - Preliminary NO GROWTH AFTER 1 DAY 08/02/19 20:35 Aerobic Blood Culture - Preliminary Blood NO GROWTH AFTER 1 DAY Anaerobic Blood Culture - Preliminary NO GROWTH AFTER 1 DAY Med Orders - Current: Current Medications Ascorbic Acid (Vitamin C) 1,000 mg PO DAILY [facility] Last Admin: 08/04/19 07:52 Dose: 1,000 mg Aspirin (Halfprin) 81 mg PO DAILY [facility] Last Admin: 08/04/19 07:49 Dose: 81 mg Atorvastatin Calcium (Lipitor) 40 mg PO BEDTIME [facility] Last Admin: 08/03/19 19:18 Dose: 40 mg Bisacodyl (Dulcolax) 10 mg .XX DAILY PRN PRN Reason: Constipation Calcium Carbonate (Caltrate 600+D 1500 Mg-400 Units) 1 tab PO DAILY [facility] Last Admin: 08/04/19 07:58 Dose: 1 tab Calcium Carbonate/Glycine (Tums Extra Strength) 750 mg PO Q4H PRN PRN Reason: Dyspepsia Last Admin: 08/02/19 04:44 Dose: 750 mg Carbamide Perox/Anhydrous Glycerin (Debrox 6.5% Otic Soln) 0 ml EARBOTH QID [facility] Stop: 08/05/19 16:01 Last Admin: 08/04/19 11:58 Dose: 4 drop Carvedilol (Coreg) 3.125 mg PO BEDTIME [facility] Last Admin: 08/03/19 19:18 Dose: 3.125 mg Carvedilol (Coreg) 6.25 mg PO DAILY [facility] Last Admin: 08/04/19 07:50 Dose: 6.25 mg Clopidogrel Bisulfate (Plavix) 75 mg PO DAILY [facility] Last Admin: 08/04/19 07:53 Dose: 75 mg Cyanocobalamin (Vitamin B12) 1,000 mcg PO DAILY [facility] Last Admin: 08/04/19 07:49 Dose: 1,000 mcg Diphenhydramine HCl (Benadryl) 25 mg PO BEDTIME PRN PRN Reason: Insomnia Last Admin: 08/03/19 22:14 Dose: 25 mg Piperacillin Sod/Tazobactam (Sod 4.5 gm/ Sodium Chloride) 100 mls @ 200 mls/hr IV Q6H [facility] Last Admin: 08/04/19 10:10 Dose: 200 mls/hr Ibuprofen (Motrin) 400 mg PO Q6H PRN PRN Reason: fever/pain Last Admin: 08/04/19 05:06 Dose: 400 mg Magnesium Hydroxide (Milk Of Magnesia) 30 ml PO BID PRN PRN Reason: Constipation Last Admin: 08/03/19 11:50 Dose: 30 ml Meclizine HCl (Antivert) 25 mg PO Q6H PRN PRN Reason: Dizziness Melatonin (Melatonin) 3 mg PO BEDTIME PRN PRN Reason: Insomnia Last Admin: 08/03/19 22:14 Dose: 3 mg Morphine Sulfate (Morphine) 2 mg IVPUSH Q1H PRN PRN Reason: Pain Last Admin: 08/02/19 04:43 Dose: 2 mg Nitroglycerin (Nitrostat) 0.4 mg SL Q5M PRN PRN Reason: Chest Pain Ondansetron HCl (Zofran) 4 mg IVPUSH Q6H PRN PRN Reason: Nausea/Vomiting Keppra 1000mg Tab * (*Own Med) 0 each PO BID@0730,2330 [facility] Last Admin: 08/04/19 07:46 Dose: 2 each Keppra 1000mg Tab * (*Own Med) 0 each PO DAILY@1500 [facility] Last Admin: 08/03/19 15:28 Dose: 1 each Escitalopram 5mg Tab (Own Med) 0 each PO DAILY@22 [facility] Last Admin: 08/03/19 21:58 Dose: 1 each Phenytoin Sodium (Phenytoin) 100 mg PO DAILY@15 [facility] Last Admin: 08/03/19 15:27 Dose: 100 mg Phenytoin Sodium (Phenytoin) 0 mg PO BID@0730,2330 [facility] Last Admin: 08/04/19 07:46 Dose: 200 mg Senna/Docusate Sodium (Senna Plus) 1 tab PO BID PRN PRN Reason: Constipation Last Admin: 08/04/19 08:03 Dose: 1 tab Sodium Chloride (Saline Flush) 10 ml FLUSH ASDIRECTED PRN PRN Reason: Keep Vein Open Last Admin: 08/04/19 04:32 Dose: 10 ml Discontinued Medications Acetaminophen (Tylenol) 650 mg PO Q4H PRN PRN Reason: analgesia/fever Al Hydroxide/Mg Hydroxide (Gi Cocktail) 30 ml PO ONETIME ONE Stop: 08/02/19 01:59 Last Admin: 08/02/19 02:02 Dose: 30 ml Al Hydroxide/Mg Hydroxide (Gi Cocktail) Confirm Administered Dose 30 ml .ROUTE .STK-MED ONE Stop: 08/02/19 02:02 Last Admin: 08/02/19 02:06 Dose: Not Given Aspirin (Aspirin) 324 mg PO ONETIME ONE Stop: 08/02/19 02:20 Last Admin: 08/02/19 02:34 Dose: 324 mg Aspirin (Halfprin) 81 mg PO MoWeFr@0800 [facility] Atorvastatin Calcium (Lipitor) 40 mg PO ONETIME ONE Stop: 08/02/19 22:16 Last Admin: 08/02/19 22:51 Dose: 40 mg Calcium Carbonate/Glycine (Tums Extra Strength) 750 mg PO Q4H [facility] Last Admin: 08/02/19 03:23 Dose: Not Given Famotidine (Pepcid) 20 mg IVPUSH ONETIME ONE Stop: 08/02/19 02:33 Last Admin: 08/02/19 02:49 Dose: 20 mg Piperacillin Sod/Tazobactam (Sod 4.5 gm/ Sodium Chloride) 100 mls @ 200 mls/hr IV Q6H [facility] Last Admin: 08/03/19 21:39 Dose: Not Given Piperacillin Sod/Tazobactam (Sod 4.5 gm/ Sodium Chloride) 100 mls @ 200 mls/hr IV Q6H [facility] Levetiracetam (Keppra) 2,000 mg PO BID@0800,2000 [facility] Magnesium Oxide (Magnesium Oxide) 800 mg PO ONETIME ONE Stop: 08/02/19 02:34 Last Admin: 08/02/19 02:47 Dose: 800 mg Meclizine HCl (Antivert) 25 mg PO ONETIME ONE Stop: 08/04/19 13:42 Morphine Sulfate (Morphine) 2 mg IVPUSH ONETIME ONE Stop: 08/02/19 02:21 Last Admin: 08/02/19 02:36 Dose: 2 mg Nitroglycerin (Nitrostat) 0.4 mg SL ONETIME ONE Stop: 08/02/19 01:37 Last Admin: 08/02/19 01:50 Dose: 0.4 mg Nitroglycerin (Nitrostat) Confirm Administered Dose 0.4 mg .ROUTE .STK-MED ONE Stop: 08/02/19 01:35 Last Admin: 08/02/19 01:51 Dose: Not Given Nitroglycerin (Nitrostat) 0.4 mg SL ONETIME ONE Stop: 08/02/19 01:48 Last Admin: 08/02/19 01:47 Dose: 0.4 mg Non-Formulary Medication (Doxylamine Succinate [Unisom Sleep Aid]) 25 mg PO BEDTIME PRN PRN Reason: Insomnia Ondansetron HCl (Zofran) 4 mg IVPUSH ONETIME ONE Stop: 08/02/19 02:21 Last Admin: 08/02/19 02:34 Dose: 4 mg Pantoprazole Sodium (Protonix Iv) 40 mg IVPUSH ONETIME ONE Stop: 08/02/19 02:33 Last Admin: 08/02/19 02:50 Dose: 40 mg Escitalopram 5mg Tab (Own Med) 0 each PO DAILY [facility] Phenytoin Sodium (Phenytoin) 200 mg PO BID [facility]AL[facility] - Exam Quality Assessment: DVT Prophylaxis (on Plavix) General: Alert, Oriented HEENT: Pupils Equal, Pupils Reactive, EOMI, Mucous Membr. Moist/Golf, Other ( TMs clear bilaterally, no nystagmus with head rotation observed. ) Neck: Supple Lungs: Clear to Auscultation, Normal Respiratory Effort Cardiovascular: Regular Rate, Regular Rhythm GI/Abdominal Exam: Normal Bowel Sounds, Soft, Non-Tender, No Distention (Male) Exam: Deferred Back Exam: No: CVA Tenderness (L), CVA Tenderness (R), Muscle Spasm, Paraspinal Tenderness, Vertebral Tenderness Extremities: Non-Tender, Normal Capillary Refill, Other (Has left sided weakness from previous CVA) Skin: Warm, Dry, Intact Neurological: No New Focal Deficit Psy/Mental Status: Alert, Normal Affect, Normal Mood - Problem List & Annotations (1) Generalized weakness SNOMED Code(s): 62439318 Code(s): R53.1 - WEAKNESS Status: Acute Priority: High Current Visit: Yes Annotation/Comment:: Patient having a hard time ambulating from bed to bathroom needed up to 2 assistance. Also noted to have lightheadedness (which has been improving) (2) Fever SNOMED Code(s): 624279050 Code(s): R50.9 - FEVER, UNSPECIFIED Status: Acute Priority: Medium Current Visit: Yes Qualifiers: Fever type: unspecified Qualified Code(s): R50.9 - Fever, unspecified Annotation/Comment:: Low grade temp noted to develop after patient admitted for observation. No recent elevation observed. WBC elevated. No focal infection identified. Blood cultures pending. Started empirically on Zosyn given the chest pain/weakness/elevated temp. WBC is currently trending downward. Patient is feeling better overall. (3) Dizziness SNOMED Code(s): 625649947, 135084233 Code(s): R42 - DIZZINESS AND GIDDINESS Status: Chronic Priority: High Current Visit: Yes Annotation/Comment:: History of intermittent issues with sudden dizziness/vertigo. Acute exacerbation noted after admission to observation for chest pain evaluation. Meclizine ordered today. Unremarkable head CT. (4) Chest pain of unknown etiology SNOMED Code(s): 77848864 Code(s): R07.89 - OTHER CHEST PAIN Status: Acute Priority: High Current Visit: No Onset Date: 08/01/19 Annotation/Comment:: Unremarkable EKGs and serial Troponins. Given development of low grade temp elevation and leukocytosis, discomfort may have been related to developing viral illness/ other illness. (5) Coronary artery disease SNOMED Code(s): 86460334 Code(s): I25.10 - ATHSCL HEART DISEASE OF [place] CORONARY ARTERY W/O ANG PCTRS Status: Chronic Priority: High Current Visit: No Qualifiers: Coronary Disease-Associated Artery/Lesion type: [place] artery [place] vs. transplanted heart: [place] heart Associated angina: without angina Qualified Code(s): I25.10 - Atherosclerotic heart disease of [place] coronary artery without angina pectoris Annotation/Comment:: Current low-dose aspirin use/Plavix. Has had stents placed in 2014 and 2017. (6) Mixed anxiety depressive disorder SNOMED Code(s): 090930115 Code(s): F41.8 - OTHER SPECIFIED ANXIETY DISORDERS Status: Chronic Priority: Low Current Visit: No Annotation/Comment:: Stable per patient (7) Sleep apnea SNOMED Code(s): 13702526 Code(s): G47.30 - SLEEP APNEA, UNSPECIFIED Status: Chronic Priority: Low Current Visit: No Qualifiers: Sleep apnea type: obstructive Qualified Code(s): G47.33 - Obstructive sleep apnea (adult) (pediatric) Annotation/Comment:: No CPAP use with chronic insomnia (8) Petit mal epilepsy SNOMED Code(s): 08087481, 19722565 Code(s): G40.A09 - ABSENCE EPILEPTIC SYNDROME, NOT INTRACTABLE, W/O STAT EPI Status: Chronic Priority: Low Current Visit: No Annotation/Comment:: Stable by patient history. Phenytoin level elevated, will cut morning and evening doses in half tonight and tomorrow. (9) Osteoarthritis SNOMED Code(s): 380543841 Code(s): M19.90 - UNSPECIFIED OSTEOARTHRITIS, UNSPECIFIED SITE Status: Chronic Priority: Low Current Visit: No Qualifiers: Osteoarthritis location: multiple joints Osteoarthritis type: primary Qualified Code(s): M15.0 - Primary generalized (osteo)arthritis Annotation/Comment:: Stable by patient history (10) Peptic reflux disease SNOMED Code(s): 249771809 Code(s): K21.9 - GASTRO-ESOPHAGEAL REFLUX DISEASE WITHOUT ESOPHAGITIS Status: Chronic Priority: Medium Current Visit: No Annotation/Comment:: Stable by patient history. (11) Chronic headaches SNOMED Code(s): 914061578 Code(s): R51 - HEADACHE Status: Chronic Priority: Low Current Visit: No Qualifiers: Headache type: unspecified Intractability: not intractable Qualified Code (s): R51 - Headache Annotation/Comment:: No complaint of headache at this time (12) Cerebral vascular accident SNOMED Code(s): 704058571 Code(s): I63.9 - CEREBRAL INFARCTION, UNSPECIFIED Status: Acute Priority : Low Current Visit: Yes Qualifiers: CVA mechanism: unspecified Qualified Code(s): I63.9 - Cerebral infarction, unspecified Annotation/Comment:: history of left sided weakness s/p CVA - Problem List Review Problem List Initiated/Reviewed/Updated: Yes - My Orders Last 24 Hours: My Active Orders 08/04/19 08:45 H PYLORI STOOL ANTIGEN [MREF] Stat 08/04/19 13:42 Meclizine [Antivert] 25 mg PO Q6H PRN - Assessment Assessment:: as above. Patient improving. 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 - Plan Plan:: PT and OT to see patient today/tomorrow and make recommendations. If patient continues to improve can consider discharge home tomorrow. May have simple viral infection as cause of these recent complaints. No focal infection/other changes identified. Will continue to provide empiric antibiotic coverage.
[2019-08-04] MEDS ORDERED: Potassium Chloride 20 MEQ Tab.ER PO ONE (14:11)
[2019-08-04] MEDS ORDERED: Potassium Chloride 10 MEQ in Premix Bag 3 BAG IV SCH (14:15)
[2019-08-04] MEDS: atorvaSTATin 40 MG Tab PO SCH (19:52)
[2019-08-04] MEDS: Carvedilol 3.125 MG Tab PO SCH (19:52)
[2019-08-04] MEDS ORDERED: Meclizine 25 MG Tab PO PRN (20:00)
[2019-08-04] MEDS: ESCITALOPRAM 5 MG PO SCH (22:34)
[2019-08-04] MEDS: Melatonin 3 MG Tab PO PRN (23:14)
[2019-08-04] MEDS: diphenhydrAMINE 25 MG Cap PO PRN (23:15)
[2019-08-05] MEDS: Sodium Chloride 0.9% 10 ML Syringe FLUSH PRN (04:37)
[2019-08-05] MEDS: Piperacillin/Tazobactam 4.5 GM in Sodium Chloride 0.9% 100 ML IV SCH ×3 (04:37→16:02)
[2019-08-05] MEDS ORDERED: Escitalopram 20 MG Tab ONE (07:46)
[2019-08-05] MEDS: Ascorbic Acid 500 MG Tab PO SCH (07:55)
[2019-08-05] MEDS: Calcium Carbonate/Vitamin D3 1500 MG-400 Units Tab PO SCH (07:55)
[2019-08-05] MEDS: Cyanocobalamin (Vitamin B12) 1,000 MCG Tab PO SCH (07:55)
[2019-08-05] MEDS: Aspirin 81 MG Tab.EC PO SCH (07:55)
[2019-08-05] MEDS: Clopidogrel 75 MG Tab PO SCH (07:55)
[2019-08-05] MEDS: DILANTIN 100 MG PO SCH ×3 (07:56→23:33)
[2019-08-05] MEDS: KEPPRA 1000 MG PO SCH ×3 (07:56→23:33)
[2019-08-05] MEDS: Carbamide Peroxide 6.5% Otic Soln 15 ML Bottle EARBOTH SCH ×3 (07:59→16:00)
[2019-08-05] MEDS: Carvedilol 6.25 MG Tab PO SCH (08:13)
--- NOTE | 2019-08-05 14:18 | PCM.PN ---
- General Info Date of Service: 08/05/19 Admission Dx/Problem (Free Text): Patient admitted to observation from ER for chest pain protocol/rule out NE. Unremarkable labs, however patient noted to be very dizzy to the point of not being able to ambulate on own safely. Unable to safely discharge home. Noted to develop elevated WBC and low grade temp. No specific focal infection noted. Started on empirical antibiotic coverage. Patient does report having intermittent problems with lightheadedness/vertigo over the last few years. Does not take Meclizine for this. Subjective Update: Patient feeling improved. Did fall yesterday when he tried to get out of bed on own. Denies injury from that incident. Functional Status: Reports: Tolerating Diet, Ambulating (Patient ambulating better with help improve with physical therapy) - Review of Systems General: Reports: Fever, Weakness, Night Sweats HEENT: Reports: No Symptoms Pulmonary: Reports: No Symptoms Cardiovascular: Reports: No Symptoms Gastrointestinal: Reports: No Symptoms Genitourinary: Reports: No Symptoms Musculoskeletal: Reports: No Symptoms Skin: Reports: No Symptoms Neurological: Reports: Confusion, Headache Psychiatric: Reports: No Symptoms, Anxiety - Patient Data Vitals - Most Recent: Last Vital Signs Temp 99.2 F 08/05/19 12:00 Pulse 67 08/05/19 12:00 Resp 16 08/05/19 12:00 BP 127/80 08/05/19 12:00 Pulse Ox 97 08/05/19 12:00 Weight - Most Recent: 306 lb 9.585 oz I&O - Last 24 Hours: Intake & Output 08/04/19 08/05/19 08/05/19 22:59 06:59 14:59 Intake Total 670 964 0983 Balance [id number] Jose Antonio Results Last 24 Hours: Microbiology 08/04/19 08:45 Helicobacter pylori Antigen - Final Stool / Feces 08/02/19 21:09 Aerobic Blood Culture - Preliminary Blood NO GROWTH AFTER 2 DAYS Anaerobic Blood Culture - Preliminary NO GROWTH AFTER 2 DAYS 08/02/19 20:35 Aerobic Blood Culture - Preliminary Blood NO GROWTH AFTER 2 DAYS Anaerobic Blood Culture - Preliminary NO GROWTH AFTER 2 DAYS Med Orders - Current: Current Medications Ascorbic Acid (Vitamin C) 1,000 mg PO DAILY [facility] Last Admin: 08/05/19 07:55 Dose: 1,000 mg Aspirin (Halfprin) 81 mg PO DAILY [facility] Last Admin: 08/05/19 07:55 Dose: 81 mg Atorvastatin Calcium (Lipitor) 40 mg PO BEDTIME [facility] Last Admin: 08/04/19 19:52 Dose: 40 mg Bisacodyl (Dulcolax) 10 mg .XX DAILY PRN PRN Reason: Constipation Calcium Carbonate (Caltrate 600+D 1500 Mg-400 Units) 1 tab PO DAILY [facility] Last Admin: 08/05/19 07:55 Dose: 1 tab Calcium Carbonate/Glycine (Tums Extra Strength) 750 mg PO Q4H PRN PRN Reason: Dyspepsia Last Admin: 08/02/19 04:44 Dose: 750 mg Carbamide Perox/Anhydrous Glycerin (Debrox 6.5% Otic Soln) 0 ml EARBOTH QID [facility] Stop: 08/05/19 16:01 Last Admin: 08/05/19 12:41 Dose: 4 drop Carvedilol (Coreg) 3.125 mg PO BEDTIME [facility] Last Admin: 08/04/19 19:52 Dose: 3.125 mg Carvedilol (Coreg) 6.25 mg PO DAILY [facility] Last Admin: 08/05/19 08:13 Dose: 6.25 mg Clopidogrel Bisulfate (Plavix) 75 mg PO DAILY [facility] Last Admin: 08/05/19 07:55 Dose: 75 mg Cyanocobalamin (Vitamin B12) 1,000 mcg PO DAILY [facility] Last Admin: 08/05/19 07:55 Dose: 1,000 mcg Diphenhydramine HCl (Benadryl) 25 mg PO BEDTIME PRN PRN Reason: Insomnia Last Admin: 08/04/19 23:15 Dose: 25 mg Piperacillin Sod/Tazobactam (Sod 4.5 gm/ Sodium Chloride) 100 mls @ 200 mls/hr IV Q6H [facility] Last Admin: 08/05/19 12:16 Dose: 200 mls/hr Ibuprofen (Motrin) 400 mg PO Q6H PRN PRN Reason: fever/pain Last Admin: 08/04/19 05:06 Dose: 400 mg Magnesium Hydroxide (Milk Of Magnesia) 30 ml PO BID PRN PRN Reason: Constipation Last Admin: 08/03/19 11:50 Dose: 30 ml Meclizine HCl (Antivert) 25 mg PO Q6H PRN PRN Reason: Dizziness Melatonin (Melatonin) 3 mg PO BEDTIME PRN PRN Reason: Insomnia Last Admin: 08/04/19 23:14 Dose: 3 mg Morphine Sulfate (Morphine) 2 mg IVPUSH Q1H PRN PRN Reason: Pain Last Admin: 08/02/19 04:43 Dose: 2 mg Nitroglycerin (Nitrostat) 0.4 mg SL Q5M PRN PRN Reason: Chest Pain Ondansetron HCl (Zofran) 4 mg IVPUSH Q6H PRN PRN Reason: Nausea/Vomiting Keppra 1000mg Tab * (*Own Med) 0 each PO BID@0730,2330 [facility] Last Admin: 08/05/19 07:56 Dose: 2 each Keppra 1000mg Tab * (*Own Med) 0 each PO DAILY@1500 [facility] Last Admin: 08/04/19 16:46 Dose: 1 each Escitalopram 5mg Tab (Own Med) 0 each PO DAILY@22 [facility] Last Admin: 08/04/19 22:34 Dose: 1 each Phenytoin Sodium (Phenytoin) 100 mg PO TID@0730,1500,2330 [facility] Last Admin: 08/05/19 07:56 Dose: 100 mg Senna/Docusate Sodium (Senna Plus) 1 tab PO BID PRN PRN Reason: Constipation Last Admin: 08/04/19 08:03 Dose: 1 tab Sodium Chloride (Saline Flush) 10 ml FLUSH ASDIRECTED PRN PRN Reason: Keep Vein Open Last Admin: 08/05/19 04:37 Dose: 10 ml Discontinued Medications Acetaminophen (Tylenol) 650 mg PO Q4H PRN PRN Reason: analgesia/fever Al Hydroxide/Mg Hydroxide (Gi Cocktail) 30 ml PO ONETIME ONE Stop: 08/02/19 01:59 Last Admin: 08/02/19 02:02 Dose: 30 ml Al Hydroxide/Mg Hydroxide (Gi Cocktail) Confirm Administered Dose 30 ml .ROUTE .STK-MED ONE Stop: 08/02/19 02:02 Last Admin: 08/02/19 02:06 Dose: Not Given Aspirin (Aspirin) 324 mg PO ONETIME ONE Stop: 08/02/19 02:20 Last Admin: 08/02/19 02:34 Dose: 324 mg Aspirin (Halfprin) 81 mg PO MoWeFr@0800 [facility] Atorvastatin Calcium (Lipitor) 40 mg PO ONETIME ONE Stop: 08/02/19 22:16 Last Admin: 08/02/19 22:51 Dose: 40 mg Calcium Carbonate/Glycine (Tums Extra Strength) 750 mg PO Q4H [facility] Last Admin: 08/02/19 03:23 Dose: Not Given Escitalopram Oxalate (Lexapro) Confirm Administered Dose 20 mg .ROUTE .STK-MED ONE Stop: 08/05/19 07:47 Last Admin: 08/05/19 08:13 Dose: Not Given Famotidine (Pepcid) 20 mg IVPUSH ONETIME ONE Stop: 08/02/19 02:33 Last Admin: 08/02/19 02:49 Dose: 20 mg Piperacillin Sod/Tazobactam (Sod 4.5 gm/ Sodium Chloride) 100 mls @ 200 mls/hr IV Q6H [facility] Last Admin: 08/03/19 21:39 Dose: Not Given Piperacillin Sod/Tazobactam (Sod 4.5 gm/ Sodium Chloride) 100 mls @ 200 mls/hr IV Q6H [facility] Potassium Chloride 10 meq/ (Premix) 0 mls @ 50 mls/hr IV Q1H [facility] Levetiracetam (Keppra) 2,000 mg PO BID@0800,2000 [facility] Magnesium Oxide (Magnesium Oxide) 800 mg PO ONETIME ONE Stop: 08/02/19 02:34 Last Admin: 08/02/19 02:47 Dose: 800 mg Meclizine HCl (Antivert) 25 mg PO ONETIME ONE Stop: 08/04/19 13:42 Last Admin: 08/04/19 15:24 Dose: 25 mg Morphine Sulfate (Morphine) 2 mg IVPUSH ONETIME ONE Stop: 08/02/19 02:21 Last Admin: 08/02/19 02:36 Dose: 2 mg Nitroglycerin (Nitrostat) 0.4 mg SL ONETIME ONE Stop: 08/02/19 01:37 Last Admin: 08/02/19 01:50 Dose: 0.4 mg Nitroglycerin (Nitrostat) Confirm Administered Dose 0.4 mg .ROUTE .STK-MED ONE Stop: 08/02/19 01:35 Last Admin: 08/02/19 01:51 Dose: Not Given Nitroglycerin (Nitrostat) 0.4 mg SL ONETIME ONE Stop: 08/02/19 01:48 Last Admin: 08/02/19 01:47 Dose: 0.4 mg Non-Formulary Medication (Doxylamine Succinate [Unisom Sleep Aid]) 25 mg PO BEDTIME PRN PRN Reason: Insomnia Ondansetron HCl (Zofran) 4 mg IVPUSH ONETIME ONE Stop: 08/02/19 02:21 Last Admin: 08/02/19 02:34 Dose: 4 mg Pantoprazole Sodium (Protonix Iv) 40 mg IVPUSH ONETIME ONE Stop: 08/02/19 02:33 Last Admin: 08/02/19 02:50 Dose: 40 mg Escitalopram 5mg Tab (Own Med) 0 each PO DAILY [facility] Phenytoin Sodium (Phenytoin) 100 mg PO DAILY@15 [facility] Last Admin: 08/03/19 15:27 Dose: 100 mg Phenytoin Sodium (Phenytoin) 200 mg PO BID [facility] Phenytoin Sodium (Phenytoin) 0 mg PO BID@0730,2330 [facility] Last Admin: 08/04/19 07:46 Dose: 200 mg Potassium Chloride (Klor-Con M20) 40 meq PO ONETIME ONE Stop: 08/04/19 14:12 Last Admin: 08/04/19 17:41 Dose: Not Given - Exam General: Alert, Oriented, Mild Distress HEENT: Pupils Equal, Pupils Reactive, EOMI, Mucous Membr. Moist/[place] Neck: Supple Lungs: Clear to Auscultation, Normal Respiratory Effort Cardiovascular: Regular Rate, Regular Rhythm GI/Abdominal Exam: Normal Bowel Sounds, Soft, Non-Tender, No Organomegaly, No Distention, No Abnormal Bruit, No Mass, Pelvis Stable Back Exam: Decreased Range of Motion Extremities: Normal Inspection, Normal Range of Motion, Non-Tender, No Pedal Edema, Normal Capillary Refill Skin: Warm, Dry, Intact Neurological: No: Normal Gait Psy/Mental Status: Alert, Normal Affect, Normal Mood - Problem List & Annotations (1) Cerebral vascular accident SNOMED Code(s): 533639654 Code(s): I63.9 - CEREBRAL INFARCTION, UNSPECIFIED Status: Acute Priority : Low Current Visit: Yes Qualifiers: CVA mechanism: unspecified Qualified Code(s): I63.9 - Cerebral infarction, unspecified Annotation/Comment:: history of left sided weakness s/p CVA (2) Chronic headaches SNOMED Code(s): 066120404 Code(s): R51 - HEADACHE Status: Chronic Priority: Low Current Visit: No Qualifiers: Headache type: unspecified Intractability: not intractable Qualified Code (s): R51 - Headache Annotation/Comment:: No complaint of headache at this time (3) Generalized weakness SNOMED Code(s): 60284815 Code(s): R53.1 - WEAKNESS Status: Acute Priority: High Current Visit: Yes Annotation/Comment:: Patient having a hard time ambulating from bed to bathroom needed up to 2 assistance. Also noted to have lightheadedness (which has been improving) (4) Fever SNOMED Code(s): 870998252 Code(s): R50.9 - FEVER, UNSPECIFIED Status: Acute Priority: Medium Current Visit: Yes Qualifiers: Fever type: unspecified Qualified Code(s): R50.9 - Fever, unspecified Annotation/Comment:: Low grade temp noted to develop after patient admitted for observation. No recent elevation observed. WBC elevated. No focal infection identified. Blood cultures pending. Started empirically on Zosyn given the chest pain/weakness/elevated temp. WBC is currently trending downward. Patient is feeling better overall. - Problem List Review Problem List Initiated/Reviewed/Updated: Yes - My Orders Last 24 Hours: My Active Orders 08/04/19 15:00 Phenytoin 100 mg PO TID@0730,1500,2330 - Assessment Assessment:: as above. Patient improving. 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 - Plan Plan:: PT and OT to see patient today/tomorrow and make recommendations. If patient continues to improve can consider discharge home tomorrow. May have simple viral infection as cause of these recent complaints. No focal infection/other changes identified. Will continue to provide empiric antibiotic coverage.
[2019-08-05 17:46] LABS: CHLORIDE,CL 106 mmol/L (98-107); SODIUM,NA 143 mmol/L (136-145)
[2019-08-05] MEDS: Amoxicillin/Clavulanate K 875-125 MG Tab PO SCH (19:52)
[2019-08-05] MEDS: Carvedilol 3.125 MG Tab PO SCH (19:52)
[2019-08-05] MEDS: atorvaSTATin 40 MG Tab PO SCH (19:54)
[2019-08-05] MEDS: ESCITALOPRAM 5 MG PO SCH (22:01)
[2019-08-05] MEDS: Melatonin 3 MG Tab PO PRN (22:05)
[2019-08-05] MEDS: diphenhydrAMINE 25 MG Cap PO PRN (22:05)
[2019-08-06] MEDS: DILANTIN 100 MG PO SCH (07:29)
[2019-08-06] MEDS: KEPPRA 1000 MG PO SCH (07:30)
[2019-08-06] MEDS: Ascorbic Acid 500 MG Tab PO SCH (07:36)
[2019-08-06] MEDS: Amoxicillin/Clavulanate K 875-125 MG Tab PO SCH (07:36)
[2019-08-06] MEDS: Cyanocobalamin (Vitamin B12) 1,000 MCG Tab PO SCH (07:37)
[2019-08-06] MEDS: Clopidogrel 75 MG Tab PO SCH (07:37)
[2019-08-06] MEDS: Aspirin 81 MG Tab.EC PO SCH (07:37)
[2019-08-06] MEDS: Carvedilol 6.25 MG Tab PO SCH (07:37)
[2019-08-06] MEDS: Calcium Carbonate/Vitamin D3 1500 MG-400 Units Tab PO SCH (07:37)
[2019-08-06 07:38] VITALS: BP 151/84; PULSE 62
[2019-08-06 07:57] LABS: CHLORIDE,CL 107 mmol/L (98-107); SODIUM,NA 143 mmol/L (136-145)
[2019-08-06] MEDS ORDERED: Loperamide 2 MG Tab PO ONE (10:55)
--- NOTE | 2019-08-06 10:55 | PCM.DCSUM1 ---
Discharge Summary - Hospital Course HPI Initial Comments: See emergency room note/admission H&P Brief History: See emergency room note/admission H&P. Diagnosis: Stroke: No Modified [place] Scale: Mod.Sev.Disability ;Unable to Walk/Attend Bodily Needs W/ O Assistance Modified [place] Scale Score: 4 - Discharge Data Discharge Date: 08/06/19 Discharge Disposition: Home, Self-Care 01 Condition: Fair - Referral to Home Health Primary Care Physician: Adriane Lay PA-C - Discharge Diagnosis/Problem(s) (1) Coronary artery disease SNOMED Code(s): 89698969 ICD Code: I25.10 - ATHSCL HEART DISEASE OF [place] CORONARY ARTERY W/O ANG PCTRS Status: Chronic Priority: High Current Visit: Yes Problem Details : No negative workup for acute IN with resolution of chest pain and no anginal complaints at discharge. Consider cardiology consultation, further workup, etc. secondary to his previous cardiac history. Close follow-up by regular provider. Continue current low-dose aspirin use/Plavix. Has had stents placed in 2014 and 2016. Qualifiers: Coronary Disease-Associated Artery/Lesion type: [place] artery [place] vs. transplanted heart: [place] heart Associated angina: without angina Qualified Code(s): I25.10 - Atherosclerotic heart disease of [place] coronary artery without angina pectoris (2) Cerebral vascular accident SNOMED Code(s): 345826999 ICD Code: I63.9 - CEREBRAL INFARCTION, UNSPECIFIED Status: Acute Priority : Low Current Visit: Yes Problem Details: History of left sided weakness with s/p CVA. No change in his neurological status during this hospitalization. Note CT scan of the head results as below with no acute changes. Patient's dizziness and unsteadiness did improve during this hospitalization with patient changed from observation status to inpatient care secondary to his instability with ambulation. He did have a minor fall on 08/03 with no acute injury. Physical therapy did evaluate the patient prior to discharge and is in agreement with outpatient physical therapy. Various therapeutic options were given to the patient, including swing bed care in this facility, outpatient physical therapy, etc. with the patient electing outpatient therapy as above. He does have a neurology appointment scheduled at [facility] next month by his history with closer follow-up with his regular provider in 710 days as per discharge instructions. Note extended inpatient care required secondary to instability issues and chronic health problems as above/below. Qualifiers: CVA mechanism: unspecified Qualified Code(s): I63.9 - Cerebral infarction, unspecified (3) Generalized weakness SNOMED Code(s): 59162082 ICD Code: R53.1 - WEAKNESS Status: Acute Priority: High Current Visit: Yes Problem Details: Patient having a hard time ambulating from bed to bathroom needing up to 2 individuals for assistance during early phases of this hospitalization. Note that the patient does have a walker, other bathroom assistence devices, etc already at home. Continue physical therapy and outpatient basis as above. He is requesting a home health aide to clean up his home. The patient currently lives with his brother and caregiver. Consider occupational therapy home safety evaluation. (4) Mixed anxiety depressive disorder SNOMED Code(s): 923060432 ICD Code: F41.8 - OTHER SPECIFIED ANXIETY DISORDERS Status: Chronic Priority: Medium Current Visit: Yes Problem Details: Stable per patient history. Continue to observe closely by his regular provider. (5) Osteoarthritis SNOMED Code(s): 136542505 ICD Code: M19.90 - UNSPECIFIED OSTEOARTHRITIS, UNSPECIFIED SITE Status: Chronic Priority: Medium Current Visit: Yes Problem Details: Stable by patient history Qualifiers: Osteoarthritis location: multiple joints Osteoarthritis type: primary Qualified Code(s): M15.0 - Primary generalized (osteo)arthritis (6) Peptic reflux disease SNOMED Code(s): 455226974 ICD Code: K21.9 - GASTRO-ESOPHAGEAL REFLUX DISEASE WITHOUT ESOPHAGITIS Status: Chronic Priority: Medium Current Visit: Yes Problem Details: Stable by patient history. (7) [place] epilepsy SNOMED Code(s): 02290142, 81083918 ICD Code: G40.A09 - ABSENCE EPILEPTIC SYNDROME, NOT INTRACTABLE, W/O STAT EPI Status: Chronic Priority: High Current Visit: Yes Problem Details: Stable by patient history. Phenytoin level elevated with reduction of his medical therapy during this hospitalization. Close follow-up by regular provider , including repeat Dilantin level at follow-up. No seizure activity during this hospitalization. Qualifiers: Intractability: not intractable Status epilepticus: without status epilepticus Qualified Code(s): G40.A09 - Absence epileptic syndrome, not intractable, without status epilepticus (8) Anemia SNOMED Code(s): 676264157 ICD Code: D64.9 - ANEMIA, UNSPECIFIED Status: Acute Priority: Medium Current Visit: Yes Problem Details: Mild progressive anemia during this hospitalization with no evidence of acute GI bleed, etc. Note current aspirin and Plavix therapy. Close follow-up by regular provider as per discharge instructions, including iron studies, etc. Further GI workup depending on his clinical course. Qualifiers: Anemia type: unspecified type Qualified Code(s): D64.9 - Anemia, unspecified (9) Hypoalbuminemia SNOMED Code(s): 929825172 ICD Code: E88.09 - OT DISORDERS OF PLASMA-PROTEIN METABOLISM, NEC Status: Acute Priority: Medium Current Visit: Yes Problem Details: Observe for now. Consider high-protein Glucerna supplements. Repeat blood work at time of follow-up with his regular provider. (10) Leukocytosis SNOMED Code(s): 660759561, 534815549 ICD Code: D72.829 - ELEVATED WHITE BLOOD CELL COUNT, UNSPECIFIED Status: Acute Priority: High Current Visit: Yes Onset Date: ~08/03/19 Problem Details: Fever and leukocytosis of unknown etiology. IV Zosyn given during early phases of hospitalization with IV access lost on day prior to discharge. Patient started Augmentin with some secondary diarrhea. Note problems with constipation during her earlier phases of this hospitalization, however. Patient did have a normal although somewhat loose bowel movement prior to discharge with one dose of Imodium AD given at that time. No further antidiarrheal medication at discharge secondary to patient's history of significant constipation as above. Qualifiers: Leukocytosis type: bandemia Qualified Code(s): D72.825 - Bandemia - Patient Summary/Data Operative Procedure(s) Performed: None Complications: Extended hospitalization as above with no significant complications. Consults: Consultations 08/03/19 22:49 PT Evaluation and Treatment [CONS] Routine 08/03/19 22:50 OT Evaluation and Treatment [CONS] Routine Labs Pending at D/C: [facility] Recommended Follow-up Testing/Procedures: As per discharge instructions Planned Operative Procedure(s) after DC: None Hospital Course: The patient was initially admitted to observation status with negative workup for acute IN as above. Note change to inpatient/acute care secondary to generalized weakness, etc. as above. Close follow-up on an outpatient basis as above. - Patient Instructions Diet: Heart Healthy Diet Diet, Other: Low-sodium, diverticulosis Activity: As Tolerated (With fall precautions and strict walker use, etc.) Driving: Do Not Drive Showering/Bathing: May Shower Notify Provider of: Increased Pain, Nausea and/or Vomiting Other/Special Instructions: 1. Followup with your regular provider in 10-14 days for reevaluation and recommended CBC, comprehensive metabolic panel, Dilantin level, TIBC panel, ferritin level, folic acid level, and vitamin B 12 level as directed. Bring these discharge instructions with you to that visit. 2. Discuss Keppra level results at that time with these results still pending at time of your hospital discharge. 3. Otherwise follow-up with your neurologist at [facility] as already scheduled. 4. Continue to observe your anemia closely with consideration of further GI workup including possible colonoscopy, EGD, etc. depending on your clinical course. 5. Discuss possible home safety evaluation to occupational therapy with your regular provider at the above follow-up visit. 6. Contact Public health as already planned for possible home health aide as discussed - Discharge Plan *PRESCRIPTION DRUG MONITORING PROGRAM REVIEWED*: Not Applicable *COPY OF PRESCRIPTION DRUG MONITORING REPORT IN PATIENT SAAD: Not Applicable Prescriptions/Med Rec: Amoxicillin/Clavulanate K [Augmentin 875-125 MG] 1 tab PO Q12HR #10 tablet Phenytoin 100 mg PO TID@0730,1500,2330 #60 cap.er Home Medications: Home Meds Calcium Carbonate/Vitamin D3 [Calcium 600 + Vit D 200] 1 each PO DAILY 07/29/15 [History] Carvedilol 3.125 mg PO BEDTIME 07/29/15 [History] Escitalopram [Lexapro] 5 mg PO DAILY 07/29/15 [History] Nitroglycerin [Nitrostat] 0.4 mg SL Q5M PRN 07/29/15 [History] atorvaSTATin [Lipitor] 40 mg PO BEDTIME 07/29/15 [History] levETIRAcetam [Keppra] 1,000 mg PO DAILY@1530 07/29/15 [History] levETIRAcetam [Keppra] 2,000 mg PO DAILY@0730,2330 07/29/15 [History] Ibuprofen [Motrin] 200 mg PO Q4H PRN 02/26/17 [History] Melatonin 3 mg PO BEDTIME PRN 02/26/17 [History] Sennosides/Docusate Sodium [Senna-S Tablet] 1 each PO BID PRN 02/26/17 [History] Ascorbic Acid [Vitamin C] 1,000 mg PO DAILY 08/02/19 [History] Aspirin [Halfprin] 81 mg PO MOWEFR 08/02/19 [History] Carvedilol 6.25 mg PO DAILY 08/02/19 [History] Clopidogrel Bisulfate [Clopidogrel] 1 tab PO DAILY 08/02/19 [History] Cyanocobalamin (Vitamin B12) [Vitamin B12] 1,000 mcg PO DAILY 08/02/19 [History] Doxylamine Succinate [Unisom Sleep Aid] 25 mg PO BEDTIME PRN 08/02/19 [History] Amoxicillin/Clavulanate K [Augmentin 875-125 MG] 1 tab PO Q12HR #10 tablet 08/06 [Rx] Patient's Own Medication [Ptom] 0 each PO DAILY@22 each 08/06/19 [Rx] Phenytoin 100 mg PO TID@0730,1500,2330 #60 cap.er 08/06/19 [Rx] diphenhydrAMINE [Benadryl] 25 mg PO BEDTIME PRN cap 08/06/19 [Rx] Oxygen Therapy Mode: Room Air Referrals: Adriane Lay PA-C [Primary Care Provider] - - Discharge Summary/Plan Comment DC Time >30 min.: Yes (Coordination of care ) Discharge Summary/Plan Comment: As above. Extensive precautions were given to the patient, who is in agreement with the treatment plan. See Patient Instructions for further treatment and plan. - General Info Date of Service: 08/06/19 Admission Dx/Problem (Free Text: Chest pain Functional Status: Reports: Pain Controlled, Tolerating Diet, Ambulating (With walker and assistance), Urinating. Denies: New Symptoms, Incentive Spirometry Numeric/FACES Score: 0 - Review of Systems General: Reports: Weakness (Improved generalized). Denies: Fatigue, Malaise, Chills, Night Sweats, Appetite (good) HEENT: Reports: No Symptoms. Denies: Ear Pain, Eye Pain, Headaches, Post Nasal Drip, Sinus Congestion, Sore Throat, Rhinitis, Visual Changes Pulmonary: Reports: No Symptoms. Denies: Shortness of Breath, Pleuritic Chest Pain, Cough, Sputum, Hemoptysis, Wheezing Cardiovascular: Reports: Edema (Stable dependent). Denies: Chest Pain, Palpitations, Dyspnea on Exertion, Orthopnea, PND, Lightheadedness Gastrointestinal: Reports: No Symptoms, Diarrhea (Borderline as above likely secondary to antibiotics). Denies: Abdominal Pain, Constipation, Decreased Appetite, Difficulty Swallowing, Flatus, Hematochezia, Melena, Nausea, Vomiting Genitourinary: Reports: No Symptoms. Denies: Dysuria, Frequency, Burning, Urgency, Incontinence, Hematuria, Retention, Flank Pain Musculoskeletal: Reports: No Symptoms. Denies: Neck Pain, Shoulder Pain, Arm Pain, Back Pain, Leg Pain Skin: Reports: No Symptoms. Denies: Diaphoresis, Bruising, Pruritis Neurological: Reports: Pre-Existing Deficit (Stable moderate left hemiparesis), Difficulty Walking (Walker required), Weakness (Improving chronic), Gait Disturbance (Stable). Denies: Confusion, Dizziness, Headache, Numbness, Seizure , Syncope, Tingling, Tremors, Change in Speech Psychiatric: Reports: No Symptoms. Denies: Confusion, Depression, Anxiety, Agitation, Hallucinations - Patient Data Vitals - Most Recent: Last Vital Signs Temp 36.8 C 08/06/19 07:39 Pulse 62 08/06/19 07:39 Resp 20 08/06/19 07:39 BP 151/84 H 08/06/19 07:39 Pulse Ox 96 08/06/19 07:39 Vital Signs - 24 hr 08/05/19 08/05/19 08/05/19 16:00 19:52 20:00 Temperature [ 36.9 C 36.6 C Oral] Pulse, 63 Peripheral Pulse, 61 63 Peripheral [ Pulse Oximetry] Respiratory 17 18 Rate Blood Pressure 153/84 H Blood Pressure 172/79 H 153/84 H [Left Upper Arm ] O2 Sat by Pulse 98 96 Oximetry 08/06/19 08/06/19 07:37 07:39 Temperature [ 36.8 C Oral] Pulse, 62 Peripheral Pulse, 62 Peripheral [ Pulse Oximetry] Respiratory 20 Rate Blood Pressure 151/84 H Blood Pressure 151/84 H [Left Upper Arm ] O2 Sat by Pulse 96 Oximetry Weight - Most Recent: 139.071 kg I&O - Last 24 hours: Intake & Output 08/05/19 08/06/19 08/06/19 22:59 06:59 14:59 Intake Total 320 Balance 320 Imaging Impressions - Last 24 hrs: CT head without contrast on 08/04/19 showed no evidence of acute changes including hemorrhage, acute CVA, etc. cardiac monitor technician showed normal sinus rhythm with heart rate in the 60s. EKG on admission showed mild sinus bradycardia with heart rate of 56 but no evidence of acute ischemic changes. Lab Results - Last 24 hrs: Laboratory Results - last 24 hr 08/05/19 08/05/19 08/06/19 Range/Units 17:29 17:29 07:21 WBC 10.4 H 9.7 (4.0-10.2) K/uL RBC 3.94 L 3.92 L (4.33-5.41) M/uL Hgb 11.8 L 11.9 L (13.1-16.8) g/dL Hct 37.3 L 36.7 L (39.0-49.0) % MCV 94.7 93.6 (84.0-98.0) fL MCH 29.9 30.4 (28.2-33.3) pg MCHC 31.6 L 32.4 (31.7-36.0) g/dL RDW 13.6 13.4 (11.2-14.1) % Plt Count 262 248 (150-350) K/uL Neut % (Auto) 61.9 60.5 (45.0-80.0) % Lymph % (Auto) 24.3 25.6 (10.0-50.0) % [place] % (Auto) 10.7 10.4 (2.0-14.0) % Eos % (Auto) 2.5 2.7 (0.0-5.0) % Baso % (Auto) 0.6 0.8 (0.0-2.0) % Neut # (Auto) 6.43 5.85 (1.40-7.00) K/uL Lymph # (Auto) 2.52 2.48 (0.50-3.50) K/uL [place] # (Auto) 1.11 H 1.01 H (0.00-1.00) K/uL Eos # (Auto) 0.26 0.26 (0.00-0.50) K/uL Baso # (Auto) 0.06 0.08 (0.00-0.20) K/uL Sodium 143 (136-145) mmol/L Potassium 4.2 (3.5-5.1) mmol/L Chloride 106 (98-107) mmol/L Carbon Dioxide 30.1 (21.0-32.0) mmol/L BUN 14 (7-18) mg/dL Creatinine 0.89 (0.51-1.17) mg/dL Est Cr Clr Drug Dosing 87.27 mL/min Estimated GFR (MDRD) > 60 mL/min Glucose 120 H (74-106) mg/dL Calcium 8.8 (8.5-10.1) mg/dL 08/06/19 Range/Units 07:21 WBC (4.0-10.2) K/uL RBC (4.33-5.41) M/uL Hgb (13.1-16.8) g/dL Hct (39.0-49.0) % MCV (84.0-98.0) fL MCH (28.2-33.3) pg MCHC (31.7-36.0) g/dL RDW (11.2-14.1) % Plt Count (150-350) K/uL Neut % (Auto) (45.0-80.0) % Lymph % (Auto) (10.0-50.0) % [place] % (Auto) (2.0-14.0) % Eos % (Auto) (0.0-5.0) % Baso % (Auto) (0.0-2.0) % Neut # (Auto) (1.40-7.00) K/uL Lymph # (Auto) (0.50-3.50) K/uL [place] # (Auto) (0.00-1.00) K/uL Eos # (Auto) (0.00-0.50) K/uL Baso # (Auto) (0.00-0.20) K/uL Sodium 143 (136-145) mmol/L Potassium 3.8 (3.5-5.1) mmol/L Chloride 107 (98-107) mmol/L Carbon Dioxide 27.1 (21.0-32.0) mmol/L BUN 10 (7-18) mg/dL Creatinine 0.78 (0.51-1.17) mg/dL Est Cr Clr Drug Dosing 99.57 mL/min Estimated GFR (MDRD) > 60 mL/min Glucose 113 H (74-106) mg/dL Calcium 8.8 (8.5-10.1) mg/dL LONG Results - Last 24 hrs: Microbiology 08/02/19 21:09 Aerobic Blood Culture - Preliminary Blood NO GROWTH AFTER 3 DAYS Anaerobic Blood Culture - Preliminary NO GROWTH AFTER 3 DAYS 08/02/19 20:35 Aerobic Blood Culture - Preliminary Blood NO GROWTH AFTER 3 DAYS Anaerobic Blood Culture - Preliminary NO GROWTH AFTER 3 DAYS 08/04/19 08:45 Helicobacter pylori Antigen - Final Stool / Feces H. pylori antigen was negative. Med Orders - Current: Current Medications Amoxicillin/Clavulanate Potassium (Augmentin 875 Mg/125 Mg) 1 tab PO Q12HR [facility] Last Admin: 08/06/19 07:36 Dose: 1 tab Ascorbic Acid (Vitamin C) 1,000 mg PO DAILY [facility] Last Admin: 08/06/19 07:36 Dose: 1,000 mg Aspirin (Halfprin) 81 mg PO DAILY [facility] Last Admin: 08/06/19 07:37 Dose: 81 mg Atorvastatin Calcium (Lipitor) 40 mg PO BEDTIME [facility] Last Admin: 08/05/19 19:54 Dose: 40 mg Bisacodyl (Dulcolax) 10 mg .XX DAILY PRN PRN Reason: Constipation Calcium Carbonate (Caltrate 600+D 1500 Mg-400 Units) 1 tab PO DAILY [facility] Last Admin: 08/06/19 07:37 Dose: 1 tab Calcium Carbonate/Glycine (Tums Extra Strength) 750 mg PO Q4H PRN PRN Reason: Dyspepsia Last Admin: 08/02/19 04:44 Dose: 750 mg Carvedilol (Coreg) 3.125 mg PO BEDTIME [facility] Last Admin: 08/05/19 19:52 Dose: 3.125 mg Carvedilol (Coreg) 6.25 mg PO DAILY [facility] Last Admin: 08/06/19 07:37 Dose: 6.25 mg Clopidogrel Bisulfate (Plavix) 75 mg PO DAILY [facility] Last Admin: 08/06/19 07:37 Dose: 75 mg Cyanocobalamin (Vitamin B12) 1,000 mcg PO DAILY [facility] Last Admin: 08/06/19 07:37 Dose: 1,000 mcg Diphenhydramine HCl (Benadryl) 25 mg PO BEDTIME PRN PRN Reason: Insomnia Last Admin: 08/05/19 22:05 Dose: 25 mg Ibuprofen (Motrin) 400 mg PO Q6H PRN PRN Reason: fever/pain Last Admin: 08/04/19 05:06 Dose: 400 mg Magnesium Hydroxide (Milk Of Magnesia) 30 ml PO BID PRN PRN Reason: Constipation Last Admin: 08/03/19 11:50 Dose: 30 ml Meclizine HCl (Antivert) 25 mg PO Q6H PRN PRN Reason: Dizziness Melatonin (Melatonin) 3 mg PO BEDTIME PRN PRN Reason: Insomnia Last Admin: 08/05/19 22:05 Dose: 3 mg Morphine Sulfate (Morphine) 2 mg IVPUSH Q1H PRN PRN Reason: Pain Last Admin: 08/02/19 04:43 Dose: 2 mg Nitroglycerin (Nitrostat) 0.4 mg SL Q5M PRN PRN Reason: Chest Pain Ondansetron HCl (Zofran) 4 mg IVPUSH Q6H PRN PRN Reason: Nausea/Vomiting Keppra 1000mg Tab * (*Own Med) 0 each PO BID@0730,2330 [facility] Last Admin: 08/06/19 07:30 Dose: 1 each Keppra 1000mg Tab * (*Own Med) 0 each PO DAILY@1500 [facility] Last Admin: 08/05/19 16:00 Dose: 1 each Escitalopram 5mg Tab (Own Med) 0 each PO DAILY@22 [facility] Last Admin: 08/05/19 22:01 Dose: 1 each Phenytoin Sodium (Phenytoin) 100 mg PO TID@0730,1500,2330 [facility] Last Admin: 08/06/19 07:29 Dose: 100 mg Senna/Docusate Sodium (Senna Plus) 1 tab PO BID PRN PRN Reason: Constipation Last Admin: 08/04/19 08:03 Dose: 1 tab Sodium Chloride (Saline Flush) 10 ml FLUSH ASDIRECTED PRN PRN Reason: Keep Vein Open Last Admin: 08/05/19 04:37 Dose: 10 ml Discontinued Medications Acetaminophen (Tylenol) 650 mg PO Q4H PRN PRN Reason: analgesia/fever Al Hydroxide/Mg Hydroxide (Gi Cocktail) 30 ml PO ONETIME ONE Stop: 08/02/19 01:59 Last Admin: 08/02/19 02:02 Dose: 30 ml Al Hydroxide/Mg Hydroxide (Gi Cocktail) Confirm Administered Dose 30 ml .ROUTE .STK-MED ONE Stop: 08/02/19 02:02 Last Admin: 08/02/19 02:06 Dose: Not Given Aspirin (Aspirin) 324 mg PO ONETIME ONE Stop: 08/02/19 02:20 Last Admin: 08/02/19 02:34 Dose: 324 mg Aspirin (Halfprin) 81 mg PO MoWeFr@0800 [facility] Atorvastatin Calcium (Lipitor) 40 mg PO ONETIME ONE Stop: 08/02/19 22:16 Last Admin: 08/02/19 22:51 Dose: 40 mg Calcium Carbonate/Glycine (Tums Extra Strength) 750 mg PO Q4H [facility] Last Admin: 08/02/19 03:23 Dose: Not Given Carbamide Perox/Anhydrous Glycerin (Debrox 6.5% Otic Soln) 0 ml EARBOTH QID JALEN Stop: 08/05/19 16:01 Last Admin: 08/05/19 16:00 Dose: 4 drop Escitalopram Oxalate (Lexapro) Confirm Administered Dose 20 mg .ROUTE .STK-MED ONE Stop: 08/05/19 07:47 Last Admin: 08/05/19 08:13 Dose: Not Given Famotidine (Pepcid) 20 mg IVPUSH ONETIME ONE Stop: 08/02/19 02:33 Last Admin: 08/02/19 02:49 Dose: 20 mg Piperacillin Sod/Tazobactam (Sod 4.5 gm/ Sodium Chloride) 100 mls @ 200 mls/hr IV Q6H [facility] Last Admin: 08/03/19 21:39 Dose: Not Given Piperacillin Sod/Tazobactam (Sod 4.5 gm/ Sodium Chloride) 100 mls @ 200 mls/hr IV Q6H JALEN Piperacillin Sod/Tazobactam (Sod 4.5 gm/ Sodium Chloride) 100 mls @ 200 mls/hr IV Q6H [facility] Last Admin: 08/05/19 16:02 Dose: Not Given Potassium Chloride 10 meq/ (Premix) 0 mls @ 50 mls/hr IV Q1H [facility] Levetiracetam (Keppra) 2,000 mg PO BID@0800,2000 [facility] Magnesium Oxide (Magnesium Oxide) 800 mg PO ONETIME ONE Stop: 08/02/19 02:34 Last Admin: 08/02/19 02:47 Dose: 800 mg Meclizine HCl (Antivert) 25 mg PO ONETIME ONE Stop: 08/04/19 13:42 Last Admin: 08/04/19 15:24 Dose: 25 mg Morphine Sulfate (Morphine) 2 mg IVPUSH ONETIME ONE Stop: 08/02/19 02:21 Last Admin: 08/02/19 02:36 Dose: 2 mg Nitroglycerin (Nitrostat) 0.4 mg SL ONETIME ONE Stop: 08/02/19 01:37 Last Admin: 08/02/19 01:50 Dose: 0.4 mg Nitroglycerin (Nitrostat) Confirm Administered Dose 0.4 mg .ROUTE .STK-MED ONE Stop: 08/02/19 01:35 Last Admin: 08/02/19 01:51 Dose: Not Given Nitroglycerin (Nitrostat) 0.4 mg SL ONETIME ONE Stop: 08/02/19 01:48 Last Admin: 08/02/19 01:47 Dose: 0.4 mg Non-Formulary Medication (Doxylamine Succinate [Unisom Sleep Aid]) 25 mg PO BEDTIME PRN PRN Reason: Insomnia Ondansetron HCl (Zofran) 4 mg IVPUSH ONETIME ONE Stop: 08/02/19 02:21 Last Admin: 08/02/19 02:34 Dose: 4 mg Pantoprazole Sodium (Protonix Iv) 40 mg IVPUSH ONETIME ONE Stop: 08/02/19 02:33 Last Admin: 08/02/19 02:50 Dose: 40 mg Escitalopram 5mg Tab (Own Med) 0 each PO DAILY [facility] Phenytoin Sodium (Phenytoin) 100 mg PO DAILY@15 JALEN Last Admin: 08/03/19 15:27 Dose: 100 mg Phenytoin Sodium (Phenytoin) 200 mg PO BID [facility] Phenytoin Sodium (Phenytoin) 0 mg PO BID@0730,2330 [facility] Last Admin: 08/04/19 07:46 Dose: 200 mg Potassium Chloride (Klor-Con M20) 40 meq PO ONETIME ONE Stop: 08/04/19 14:12 Last Admin: 08/04/19 17:41 Dose: Not Given - Exam Quality Assessment: Reports: DVT Prophylaxis. Denies: Supplemental Oxygen, Central Line/PICC, Urine Catheter, Skin Breakdown, Restraints General: Reports: Alert, Oriented, Cooperative, No Acute Distress HEENT: Reports: Pupils Equal, Pupils Reactive, EOMI, Mucous Membr. Moist/[place]. Denies: Scleral Icterus Neck: Reports: Supple, Trachea Midline, No JVD, No Thyromegaly. Denies: Lymphadenopathy Lungs: Reports: Clear to Auscultation, Normal Respiratory Effort. Denies: Rub Cardiovascular: Reports: Regular Rate, Regular Rhythm, No Murmurs. Denies: Gallops, Rubs GI/Abdominal Exam: Normal Bowel Sounds, Soft, Non-Tender, No Organomegaly, No Distention, No Abnormal Bruit, No Mass, Pelvis Stable, Other (Obese). No: Guarding (Male) Exam: Deferred Rectal (Males) Exam: Deferred Back Exam: Reports: Normal Inspection, Full Range of Motion. Denies: CVA Tenderness (L), CVA Tenderness (R), Muscle Spasm Extremities: Normal Range of Motion, Non-Tender, Normal Capillary Refill, Pedal Edema (Trace bilateral pedal/pretibial edema). No: No Pedal Edema, Janet's Sign Skin: Reports: Warm, Dry, Intact. Denies: Ecchymosis Neurological: Reports: No New Focal Deficit, Other (Stable moderate left-sided hemiparesis) Psy/Mental Status: Reports: Alert, Normal Affect, Normal Mood. Denies: Agitated , Hallucinations, Withdrawal Symptoms
== END 2019-08-06 13:31 | disposition home or self-care (01) | DRG 313 ==
LOC: LL.ED 01:22 → LL.MS 02:46 → OBSVTOIN 08-03 19:36
PROVIDERS: ADMIT Emergency Medicine; ATTEND Family Medicine
DX: I63.9 Cerebral infarction, unspecified (principal); R07.9 Chest pain, unspecified; R07.89 Other chest pain; R42 Dizziness and giddiness; R51 Headache; I69.954 Hemiplegia and hemiparesis following unspecified cerebrovascular disease affecting left non-dominant side; I25.10 Atherosclerotic heart disease of native coronary artery without angina pectoris; F41.8 Other specified anxiety disorders; M15.0 Primary generalized (osteo)arthritis; K21.9 Gastro-esophageal reflux disease without esophagitis; G40.A09 Absence epileptic syndrome, not intractable, without status epilepticus; D64.9 Anemia, unspecified; E88.09 Other disorders of plasma-protein metabolism, not elsewhere classified; D72.825 Bandemia; E78.00 Pure hypercholesterolemia, unspecified; Z95.5 Presence of coronary angioplasty implant and graft; I10 Essential (primary) hypertension; G47.30 Sleep apnea, unspecified; E66.9 Obesity, unspecified; G62.9 Polyneuropathy, unspecified; R26.81 Unsteadiness on feet; Z79.899 Other long term (current) drug therapy; Z79.82 Long term (current) use of aspirin; Z88.1 Allergy status to other antibiotic agents; Z88.2 Allergy status to sulfonamides; Z86.73 Personal history of transient ischemic attack (TIA), and cerebral infarction without residual deficits; Z68.39 Body mass index [BMI] 39.0-39.9, adult
CPT/HCPCS: 36415; 51701; 70450; 71046; 80048; 80053; 80177; 80185; 81001; 82962; 83735; 83880; 84484; 85025; 85379; 87040; 87338; 90662; 93005; 96374; 96375; 96376; 97162-GP; 97165-GO; 97530-GP; 99285-25; A9270-GY; C9113; G0378; J2270; J2405; J2543; J3490; J7050

== ENCOUNTER 2019-09-25 19:41 | Observation (INO) | payer MEDICARE, OTHER ==
[2019-09-25] MEDS ORDERED: Ticagrelor 90 MG Tab PO ONE (19:43)
[2019-09-25] MEDS ORDERED: Famotidine 20 MG/2 ML SDV IVPUSH ONE (19:43)
[2019-09-25] MEDS ORDERED: Aspirin 81 MG Tab.Chew CHEW ONE (19:43)
--- NOTE | 2019-09-25 19:43 | EDM.PDOC ---
ED HPI GENERAL MEDICAL PROBLEM - General Chief Complaint: Gastrointestinal Problem Stated Complaint: abdominal pain/chest pain Time Seen by Provider: 09/25/19 19:43 Source of Information: Reports: Family (Brother), Old Records ([facility] EMR. No paper hospital chart available.) History Limitations: Reports: No Limitations - History of Present Illness INITIAL COMMENTS - FREE TEXT/NARRATIVE: The patient was brought to the emergency room via private automobile by his brother for evaluation of 08/14 retrosternal chest pressure associated with some moderate diaphoresis with symptoms starting at about 18:00 hours this afternoon eating supper including mashed potatoes with better, roast beef, etc.. He did take 2 sublingual nitroglycerin tablets prior to arrival with no improvement of his symptoms. He has been evaluated in this facility for similar type symptoms on multiple occasions, including recently on 08/02/19 patient not following up with his chain saw driver as previously recommended. He does have a significant known cardiac history as below. The patient denies any heart flutter , dizziness, orthostasis, orthopnea, diaphoresis, paresthesias, recent decreased exercise tolerance, or any other anginal-type symptoms, although his generalized exercise level has been extremely low for several years. No recent history of abdominal pain, heartburn, nausea, diarrhea, melena, gross hematochezia, or any food intolerance, including fatty foods, etc. with normal bowel movement at about 18:30 hours this evening. He denies any gross hematuria , colic, or other UTI symptoms. The patient also denies any recent fever, cough , wheezing, dyspnea, etc.. Onset: Today, Sudden Onset Date: 09/25/19 Onset Time: 18:00 Duration: Constant Location: Reports: Chest. Denies: Head, Face, Neck, Abdomen, Back, Upper Extremity, Left, Upper Extremity, Right, Radiates to Quality: Reports: Pressure, Same as Previous Episode Severity: Severe Improves with: Reports: None Worsens with: Reports: None Context: Reports: Other (As above). Denies: Sick Contact, Trauma Associated Symptoms: Reports: Chest Pain, Diaphoresis. Denies: Confusion, Cough , cough w sputum, Fever/Chills, Headaches, Loss of Appetite, Malaise, Nausea/ Vomiting, Seizure, Shortness of Breath, Syncope, Weakness Treatments SENIOR APPLICATIONS ARCHITECT: Reports: Nitroglycerin Middle Chest Pain Score (Numeric/FACES): 10 - Related Data Allergies Allergy/AdvReac Type Severity Reaction Status Date / Time levofloxacin [From Levaquin] Allergy Dizziness Verified 09/25/19 21:08 Sulfa (Sulfonamide Allergy Cannot Verified 09/25/19 21:08 Antibiotics) Remember acetaminophen [From Tylenol] AdvReac Other Verified 09/25/19 21:08 ticagrelor [From Brilinta] AdvReac Other Verified 09/25/19 21:08 Home Meds: Home Meds Calcium Carbonate/Vitamin D3 [Calcium 600 + Vit D 200] 1 each PO DAILY 07/29/15 [History] Escitalopram [Lexapro] 5 mg PO DAILY 07/29/15 [History] Nitroglycerin [Nitrostat] 0.4 mg SL Q5M PRN 07/29/15 [History] atorvaSTATin [Lipitor] 40 mg PO BEDTIME 07/29/15 [History] carvediloL [Carvedilol] 3.125 mg PO BEDTIME 07/29/15 [History] levETIRAcetam [Keppra] 1,000 mg PO DAILY@1530 07/29/15 [History] levETIRAcetam [Keppra] 2,000 mg PO DAILY@0730,2330 07/29/15 [History] Ibuprofen [Motrin] 200 mg PO Q4H PRN 02/26/17 [History] Sennosides/Docusate Sodium [Senna-S Tablet] 1 each PO BID PRN 02/26/17 [History] Ascorbic Acid [Vitamin C] 1,000 mg PO DAILY 08/02/19 [History] Aspirin [Halfprin] 81 mg PO MOWEFR 08/02/19 [History] Clopidogrel Bisulfate [Clopidogrel] 1 tab PO DAILY 08/02/19 [History] Cyanocobalamin (Vitamin B12) [Vitamin B12] 1,000 mcg PO DAILY 08/02/19 [History] carvediloL [Carvedilol] 6.25 mg PO DAILY 08/02/19 [History] Patient's Own Medication [Ptom] 0 each PO DAILY@22 each 08/06/19 [Rx] Phenytoin 100 mg PO TID@0730,1500,2330 #60 cap.er 08/06/19 [Rx] diphenhydrAMINE [Benadryl] 100 mg PO BEDTIME PRN 09/25/19 [History] Past Medical History HEENT History: Reports: Cataract, Hard of Hearing, Impaired Vision, Other (See Below). Denies: Allergic Rhinitis, Glaucoma, Macular Degeneration, Otitis Media , Retinal Detachment Other HEENT History: Patient wears reading glasses. Bilateral presbycusis with no current hearing the therapy Cardiovascular History: Reports: Arrhythmia, CAD, High Cholesterol, Hypertension , PTCA, Stents, Other (See Below). Denies: Afib, Aneurysm, Blood Clots/VTE/DVT , Cardiomyopathy, Heart Failure, Heart Murmur, ID, PVD, Syncope Other Cardiovascular History: Coronary artery disease initially diagnosed in early 2014 with procedures as below. PVCs and bigeminy with exercise. Bradycardia secondary to medications. Respiratory History: Reports: Bronchitis, Recurrent, Intubation, Previous, Sleep Apnea, Other (See Below). Denies: Asthma, COPD, Intubation, Difficult, PE , Pneumothorax, TB Other Respiratory History: He does not have a CPAP machine. Gastrointestinal History: Reports: Chronic Constipation, Gastritis, Helicobacter Pylori, PUD, Other (See Below) Other Gastrointestinal History: H. pylori diagnosed on 06/30/12. Genitourinary History: Reports: BPH, UTI, Recurrent Musculoskeletal History: Reports: Arthritis, Back Pain, Chronic, Fracture, Neck Pain, Chronic, Osteoarthritis, Other (See Below). Denies: Gout, RA, SLE Other Musculoskeletal History: Right rib fracture in the . Right rotator cuff tear on 06/30/06. Chronic left leg plantar fasciitis. Neurological History: Reports: Concussion, Headaches, Chronic, Head Trauma, Migraines, Seizure. 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 Head concussion in 1962 with apparent cerebral injury at resulting in right-sided scar requiring surgery as below. Head injury from a horse in 1962. Psychiatric History: Reports: Anxiety, Depression, Suicide Attempt, Suicidal Ideation Other Psychiatric History: Chronic insomnia. Suicide attempts X 4 in 1970. Previous suicidal thoughts regarding his severe medical history. Endocrine/Metabolic History: Reports: Obesity/BMI 30+, Other (See Below). Denies: Diabetes, Type I, Diabetes, Type II, Diabetes Mellitus, Type 3c, Hypothyroidism, IDDM Other Endocrine/Metabolic History: Hypoalbuminemia. Hematologic History: Reports: Blood Transfusion(s), Other (See Below). Denies: Anemia, B12 Deficiency, Iron Deficiency Other Hematologic History: Blood transfusion in 1974 at time of brain surgery as below. Immunologic History: Reports: None Oncologic (Cancer) History: Reports: None Dermatologic History: Reports: None - Infectious Disease History Infectious Disease History: Reports: Helicobacter Pylori (06/30/12), Mumps - Past Surgical History Head Surgeries/Procedures: Reports: Other (See Below) Other Head Surgeries/Procedures: Nonspecific brain surgery for scar removal in 1974 HEENT Surgical History: Reports: Cataract Surgery, Oral Surgery, Tonsillectomy, Other (See Below) Other HEENT Surgeries/Procedures: Bilateral cataract surgery in the . Multiple teeth extractions including wisdom teeth extraction in 1969. Tonsillectomy in the 1949s. Cardiovascular Surgical History: Reports: Coronary Artery Stent, Percutaneous Transluminal Angioplasty, Other (See Below) Other Cardiovascular Surgeries/Procedures: Initial PTCA/stent of the proximal LAD on 01/21/15 with repeat procedure on 02/16/17 in the same area. GI Surgical History: Reports: Colonoscopy, Hernia, Inguinal, Other (See Below). Denies: Appendectomy, Cholecystectomy, EGD, Hernia, Abdominal, Hernia Repair/ Other, Polypectomy Other GI Surgeries/Procedures: Colonoscopy in about 2011. Left inguinal hernia repair. Musculoskeletal Surgical History: Reports: Shoulder Surgery, Other (See Below) Other Musculoskeletal Surgeries/Procedures:: Rotator cuff repair in 2005. - Past Imaging History Past Imaging History: Reports: Angiography (Last heart catheterization on with previous catheterization in December 2014.), CAT Scan (CT of the head on 08/04/19 and 08/02/19.), MRI (Right shoulder in about 2005), Stress Testing ( Low level cardiac stress test on 03/08/17 and 02/02/15.) - History Comment History Comment: He is a somewhat poor historian. Social & Family History - Family History Cardiac: Reports: High Cholesterol, Hypertension, Other (See Below) Other Cardiac Family History: Hyperlipidemia and hypertension in brother. Respiratory: Reports: COPD, Other (See Below) Other Respiratory Family Hisory: Maternal uncle with COPD. Endocrine/Metabolic: Reports: Diabetes, type II, Obesity/MBI 30+, Other (See Below). Denies: Diabetes, Type I, IDDM Other Endocrine/Metabolic Family History: Brother with borderline diabetes and obesity. Oncologic: Reports: Lung, Non-Hodgkin's Lymphoma, Other (See Below) Other Oncologic Family History: Paternal grandfather with lung cancer in his 60s with history of tobacco use. Father with history of lymphoma possibly fatal at age 80. Maternal uncle with unknown type of cancer. - Tobacco Use Smoking Status *Q: Never Smoker Tobacco Use Within Last Twelve Months: No Used Tobacco, but Quit: No Smoking Cessation Information Provided To Patient: No Second Hand Smoke Exposure: No Second Hand Smoke Education Provided: No - Caffeine Use Caffeine Use: Reports: Soda (3 sodas per day.). 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 No previous DWIs, problems with alcohol abuse, etc. 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 ED EXAM, GENERAL - Physical Exam Exam: See Below Exam Limited By: No Limitations General Appearance: Alert, WD/WN, No Apparent Distress Eye Exam: Bilateral Eye: EOMI, Normal Inspection (No nystagmus), PERRL Ears: Normal External Exam, Normal Canal, Normal TMs, Hearing Loss (Mild bilateral presbycusis) Nose: Normal Inspection, Normal Mucosa, No Blood Throat/Mouth: Normal Lips, Normal Teeth (Multiple missing teeth), Normal Oropharynx, Normal Voice, No Airway Compromise. No: Dysphagia, Perioral Cyanosis Head: Atraumatic, Normocephalic. No: Facial Swelling, Facial Tenderness, Sinus Tenderness Neck: Supple, Non-Tender, Full Range of Motion, Carotid Bruit (Mild bilateral carotid bruits). No: Lymphadenopathy (L), Lymphadenopathy (R), Thyromegaly Respiratory/Chest: No Respiratory Distress, Normal Breath Sounds, No Accessory Muscle Use, Chest Non-Tender, Rales (Bilateral basilar ralesmild). No: Pleural Rub, Retractions Cardiovascular: Normal Peripheral Pulses, Regular Rate, Rhythm (Occasional borderline bradycardia), No Edema, No Gallop, No JVD, No Murmur, No Rub. No: Gallop/S3, Gallop/S4, Friction Rub Peripheral Pulses: 2+: Radial (L), Radial (R), Dorsalis Pedis (L), Dorsalis Pedis (R) GI/Abdominal: Normal Bowel Sounds, Soft, Non-Tender, No Organomegaly, No Distention, No Abnormal Bruit, No Mass, Other (Obese). No: Guarding (Male) Exam: Deferred Rectal (Males) Exam: Deferred Back Exam: Normal Inspection, Full Range of Motion. No: CVA Tenderness (L), CVA Tenderness (R), Muscle Spasm Extremities: Normal Inspection, Normal Range of Motion, Non-Tender, No Pedal Edema, Normal Capillary Refill. No: Janet's Sign Neurological: Alert, Oriented, CN II-XII Intact, Normal Cognition, Normal Gait, Normal Reflexes (Negative Babinski's), No Motor/Sensory Deficits Psychiatric: Normal Affect, Normal Mood Skin Exam: Warm, Dry, Intact, Normal Color, No Rash, Diaphoretic (Moderate). No : Ecchymosis, Petechiae, Wound/Incision Lymphatic: No Adenopathy EKG INTERPRETATION EKG Date: 09/25/19 Time: 20:07 Rhythm: Other (Sinus bradycardia) Rate (Beats/Min): 58 [place]: Normal (Neutral) P-Wave: Enlarged (Moderate diffuse biphasic P waves with pulmonary hypertension by EKG) QRS: Normal (0.09 seconds) ST-T: Other (Stable T-wave inversion in lead aVL) QT: Normal CT/PQ Interval: 0.15 seconds Comparison: No Change (From last EKG on 08/02/19.) EKG Interpretation Comments: 1. No acute ischemic changes 2. Sinus bradycardia 3. Left atrial enlargement 4. Pulmonary hypertension by EKG Course - Vital Signs Last Recorded V/S: Last Vital Signs Temp 36.5 C 09/25/19 19:43 Pulse 60 09/25/19 21:00 Resp 16 09/25/19 20:15 BP 136/93 H 09/25/19 21:00 Pulse Ox 96 09/25/19 21:00 Vital Signs - 24 hr 09/25/19 09/25/19 09/25/19 19:42 19:43 20:00 Temperature [ 36.5 C 36.5 C Oral] Pulse, 59 L 61 64 Peripheral [ Left Pulse Oximetry] Respiratory 10 L 16 16 Rate Blood Pressure 178/63 H 178/63 H 166/73 H [Left Upper Arm ] O2 Sat by Pulse 98 97 95 Oximetry O2 Sat by Pulse 93 L Oximetry [Room Air] 09/25/19 09/25/19 09/25/19 20:15 20:45 21:00 Temperature [ Oral] Pulse, 64 58 L 60 Peripheral [ Left Pulse Oximetry] Respiratory 16 Rate Blood Pressure 181/79 H 136/93 H 136/93 H [Left Upper Arm ] O2 Sat by Pulse 98 94 L 96 Oximetry O2 Sat by Pulse Oximetry [Room Air] 09/25/19 21:15 Temperature [ 36.5 C Oral] Pulse, 59 L Peripheral [ Left Pulse Oximetry] Respiratory 16 Rate Blood Pressure 173/68 H [Left Upper Arm ] O2 Sat by Pulse 97 Oximetry O2 Sat by Pulse Oximetry [Room Air] - Orders/Labs/Meds Orders: Active Orders 24 hr Category Date Time Status Cardiac Monitoring [RC] . DIRECTED Care 09/25/19 19:43 Active EKG Documentation Completion [RC] ASDIRECTED Care 09/25/19 19:43 Active Oxygen Therapy, ED [RC] PRN Care 09/25/19 19:43 Active Peripheral IV Care [RC] . DIRECTED Care 09/25/19 19:43 Active Pulse Oximetry [RC] CONTINUOUS Care 09/25/19 19:43 Active Up With Assistance [RC] PFP Care 09/25/19 19:43 Active Vital Signs [RC] PFP Care 09/25/19 19:43 Active Nothing per Oral Now Diet [DIET] Diet 09/25/19 Breakfast Active Chest 1V Frontal [CR] Stat Exams 09/25/19 19:43 Taken D-DIMER QUANTITATIVE [COAG] Stat Lab 09/25/19 20:32 Received Sodium Chloride 0.9% [Saline Flush] Med 09/25/19 19:43 Active 10 ml FLUSH ASDIRECTED PRN Obtain Past Medical Record [OM.PC] Urgent Oth 09/25/19 19:43 Active Peripheral IV Insertion Adult [OM.PC] Stat Oth 09/25/19 19:43 Ordered Resuscitation Status Stat Resus Stat 09/25/19 19:43 Ordered Medication Orders Sodium Chloride (Saline Flush) 10 ml FLUSH ASDIRECTED PRN PRN Reason: Keep Vein Open Last Admin: 09/25/19 20:30 Dose: 10 ml Labs: Laboratory Tests 09/25/19 09/25/19 09/25/19 Range/Units 20:32 20:32 20:32 WBC 12.1 H (4.0-10.2) K/uL RBC 4.57 (4.33-5.41) M/uL Hgb 13.5 D (13.1-16.8) g/dL Hct 43.3 (39.0-49.0) % MCV 94.7 (84.0-98.0) fL MCH 29.5 (28.2-33.3) pg MCHC 31.2 L (31.7-36.0) g/dL RDW 13.4 (11.2-14.1) % Plt Count 275 (150-350) K/uL Neut % (Auto) 74.8 (45.0-80.0) % Lymph % (Auto) 16.1 (10.0-50.0) % Lipscomb % (Auto) 7.0 (2.0-14.0) % Eos % (Auto) 1.4 (0.0-5.0) % Baso % (Auto) 0.7 (0.0-2.0) % Neut # (Auto) 9.07 H (1.40-7.00) K/uL Lymph # (Auto) 1.95 (0.50-3.50) K/uL Lipscomb # (Auto) 0.85 (0.00-1.00) K/uL Eos # (Auto) 0.17 (0.00-0.50) K/uL Baso # (Auto) 0.08 (0.00-0.20) K/uL PT 10.3 (9.5-12.0) SEC INR 1.0 APTT 25.4 (21.0-31.3) SEC Sodium 145 (136-145) mmol/L Potassium 3.8 (3.5-5.1) mmol/L Chloride 106 (98-107) mmol/L Carbon Dioxide 23.6 (21.0-32.0) mmol/L BUN 15 (7-18) mg/dL Creatinine 0.94 (0.51-1.17) mg/dL Est Cr Clr Drug Dosing TNP Estimated GFR (MDRD) > 60 mL/min Glucose 139 H (74-106) mg/dL Lactic Acid (0.4-2.0) mmol/L Uric Acid 1.6 L (2.6-7.2) mg/dL Calcium 8.8 (8.5-10.1) mg/dL Magnesium 2.1 (1.8-2.4) mg/dL Total Bilirubin 0.5 (0.2-1.0) mg/dL AST 15 (15-37) U/L ALT 24 (12-78) U/L Alkaline Phosphatase 159 H (46-116) IU/L Creatine Kinase 54 (26-308) U/L Creatine Kinase Index 1.5 (0.0-2.5) % CK-MB (CK-2) 0.80 (0.00-3.60) ng/mL Troponin I 0.000 (0.000-0.056) ng/mL NT-Pro-B Natriuret Pep 10 (0-125) pg/mL Total Protein 6.5 (6.4-8.2) g/dL Albumin 3.8 (3.4-5.0) g/dL Amylase 53 (25-115) U/L Lipase 106 (73-393) U/L TSH, Ultra Sensitive 1.443 (0.358-3.740) mIU/mL 09/25/19 Range/Units 20:32 WBC (4.0-10.2) K/uL RBC (4.33-5.41) M/uL Hgb (13.1-16.8) g/dL Hct (39.0-49.0) % MCV (84.0-98.0) fL MCH (28.2-33.3) pg MCHC (31.7-36.0) g/dL RDW (11.2-14.1) % Plt Count (150-350) K/uL Neut % (Auto) (45.0-80.0) % Lymph % (Auto) (10.0-50.0) % Lipscomb % (Auto) (2.0-14.0) % Eos % (Auto) (0.0-5.0) % Baso % (Auto) (0.0-2.0) % Neut # (Auto) (1.40-7.00) K/uL Lymph # (Auto) (0.50-3.50) K/uL Lipscomb # (Auto) (0.00-1.00) K/uL Eos # (Auto) (0.00-0.50) K/uL Baso # (Auto) (0.00-0.20) K/uL PT (9.5-12.0) SEC INR APTT (21.0-31.3) SEC Sodium (136-145) mmol/L Potassium (3.5-5.1) mmol/L Chloride (98-107) mmol/L Carbon Dioxide (21.0-32.0) mmol/L BUN (7-18) mg/dL Creatinine (0.51-1.17) mg/dL Est Cr Clr Drug Dosing Estimated GFR (MDRD) mL/min Glucose (74-106) mg/dL Lactic Acid 2.3 H (0.4-2.0) mmol/L Uric Acid (2.6-7.2) mg/dL Calcium (8.5-10.1) mg/dL Magnesium (1.8-2.4) mg/dL Total Bilirubin (0.2-1.0) mg/dL AST (15-37) U/L ALT (12-78) U/L Alkaline Phosphatase (46-116) IU/L Creatine Kinase (26-308) U/L Creatine Kinase Index (0.0-2.5) % CK-MB (CK-2) (0.00-3.60) ng/mL Troponin I (0.000-0.056) ng/mL NT-Pro-B Natriuret Pep (0-125) pg/mL Total Protein (6.4-8.2) g/dL Albumin (3.4-5.0) g/dL Amylase (25-115) U/L Lipase (73-393) U/L TSH, Ultra Sensitive (0.358-3.740) mIU/mL Meds: Medications Generic Name Dose Route Start Last Admin Trade Name Freq PRN Reason Stop Dose Admin Sodium Chloride 10 ml 09/25/19 19:43 11/21/19 20:30 Saline Flush FLUSH 10 ml ASDIRECTED PRN Administration Keep Vein Open Discontinued Medications Generic Name Dose Route Start Last Admin Trade Name Irma PRN Reason Stop Dose Admin Aspirin 324 mg 09/25/19 19:43 09/25/19 19:56 Aspirin CHEW 09/25/19 19:44 324 mg ONETIME ONE Administration Aspirin Confirm 09/25/19 19:57 09/25/19 20:30 Aspirin Administered 09/25/19 19:58 Not Given Dose 243 mg .ROUTE .STK-MED ONE Clopidogrel Bisulfate 300 mg 09/25/19 19:59 09/25/19 20:12 Plavix PO 09/25/19 20:00 300 mg ONETIME ONE Administration Famotidine 40 mg 09/25/19 19:43 09/25/19 20:10 Pepcid IVPUSH 09/25/19 19:44 40 mg ONETIME ONE Administration Famotidine Confirm 09/25/19 20:11 09/25/19 20:30 Pepcid Administered 09/25/19 20:12 Not Given Dose 20 mg .ROUTE .STK-MED ONE Famotidine Confirm 09/25/19 20:17 09/25/19 20:30 Pepcid Administered 09/25/19 20:18 Not Given Dose 20 mg .ROUTE .STK-MED ONE Ticagrelor 180 mg 09/25/19 19:43 09/25/19 19:59 Brilinta PO 09/25/19 19:44 Not Given ONETIME ONE - Radiology Interpretation Free Text/Narrative:: distribution operations manager shows normal sinus rhythm in the 60s to 70s with very occasional borderline bradycardia no PVCs or other significant ectopy. Chest x-ray, portable, shows somewhat prominent proximal aortic arch with no cardiomegaly, CHF, pulmonary infiltrates, pneumothorax, etc. Departure - Departure Time of Disposition: 22:20 Disposition: Refer to Observation Condition: Good Clinical Impression: Mixed anxiety depressive disorder, Peptic reflux disease, Lactic acid increased Coronary artery disease Qualifiers: Coronary Disease-Associated Artery/Lesion type: marshall artery [place] vs. transplanted heart: marshall heart Associated angina: with stable angina Qualified Code(s): I25.118 - Atherosclerotic heart disease of marshall coronary artery with other forms of angina pectoris Petit mal epilepsy Qualifiers: Intractability: not intractable Status epilepticus: without status epilepticus Qualified Code(s): G40.A09 - Absence epileptic syndrome, not intractable, without status epilepticus Sleep apnea Qualifiers: Sleep apnea type: obstructive Qualified Code(s): G47.33 - Obstructive sleep apnea (adult) (pediatric) Chest pain Qualifiers: Chest pain type: precordial pain Qualified Code(s): R07.2 - Precordial pain Hypertension Qualifiers: Hypertension type: essential hypertension Qualified Code(s): I10 - Essential ( primary) hypertension Hyperlipidemia Qualifiers: Hyperlipidemia type: unspecified Qualified Code(s): E78.5 - Hyperlipidemia, unspecified - Problem List & Annotations (1) Chest pain SNOMED Code(s): 25943222 Code(s): R07.9 - CHEST PAIN, UNSPECIFIED Status: Acute Priority: High Current Visit: No Onset Date: 09/25/19 Annotation/Comment:: Chest pain protocol initiated immediately upon patient's arrival to the emergency room. He refused recommended Brilinta since by his history this interferes with his antiseizure medications. He did agree to take Plavix, however. Initiate standard rule out ID orders. Dr. Soto assumes care in the a.m.. Strongly recommend cardiology consultation in the a.m. with transfer to [facility] in [place] tomorrow for further cardiac workup, including possible repeat heart catheterization versus Cardiolite stress test secondary to recurrent symptoms in recent months, including one month ago and known history of heart disease. Secondary to machine malfunction d-dimer could not be conducted as ordered. Leukocytosis likely secondary to stress reaction with no evidence of infection, fever, etc.. The patient is somewhat uncertain about his current medical therapy ? Current Imdur. Initiate Nitro-paste therapy on admission. Symptoms improved at time of admission. Qualifiers: Chest pain type: precordial pain Qualified Code(s): R07.2 - Precordial pain (2) Coronary artery disease SNOMED Code(s): 92640073 Code(s): I25.10 - ATHSCL HEART DISEASE OF [place] CORONARY ARTERY W/O ANG PCTRS Status: Chronic Priority: High Current Visit: No Annotation/ Comment:: Known heart disease with history of recurrent PTCA/stent 2 as above. Qualifiers: Coronary Disease-Associated Artery/Lesion type: marshall artery [place] vs. transplanted heart: marshall heart Associated angina: with stable angina Qualified Code(s): I25.118 - Atherosclerotic heart disease of marshall coronary artery with other forms of angina pectoris (3) Mixed anxiety depressive disorder SNOMED Code(s): 115329058 Code(s): F41.8 - OTHER SPECIFIED ANXIETY DISORDERS Status: Chronic Priority: Medium Current Visit: No Annotation/Comment:: Stable per patient history. Continue to observe closely by his regular provider. (4) Osteoarthritis SNOMED Code(s): 816916239 Code(s): M19.90 - UNSPECIFIED OSTEOARTHRITIS, UNSPECIFIED SITE Status: Chronic Priority: Medium Current Visit: No Annotation/Comment:: Stable by patient history Qualifiers: Osteoarthritis location: multiple joints Osteoarthritis type: primary Qualified Code(s): M15.0 - Primary generalized (osteo)arthritis (5) Peptic reflux disease SNOMED Code(s): 879702730 Code(s): K21.9 - GASTRO-ESOPHAGEAL REFLUX DISEASE WITHOUT ESOPHAGITIS Status: Chronic Priority: Medium Current Visit: No Annotation/Comment:: Stable by patient history. High-dose IV Pepcid given as GI prophylaxis. (6) Petit mal epilepsy SNOMED Code(s): 01957905, 14049186 Code(s): G40.A09 - ABSENCE EPILEPTIC SYNDROME, NOT INTRACTABLE, W/O STAT EPI Status: Chronic Priority: High Current Visit: No Annotation/Comment:: Stable by patient history with patient closely followed by neurology at [facility]. Qualifiers: Intractability: not intractable Status epilepticus: without status epilepticus Qualified Code(s): G40.A09 - Absence epileptic syndrome, not intractable, without status epilepticus (7) Sleep apnea SNOMED Code(s): 94447830 Code(s): G47.30 - SLEEP APNEA, UNSPECIFIED Status: Chronic Priority: Medium Current Visit: No Annotation/Comment:: No CPAP use with chronic insomnia Qualifiers: Sleep apnea type: obstructive Qualified Code(s): G47.33 - Obstructive sleep apnea (adult) (pediatric) (8) Hyperlipidemia SNOMED Code(s): 80011729 Code(s): E78.5 - HYPERLIPIDEMIA, UNSPECIFIED Status: Chronic Priority: Medium Current Visit: No Annotation/Comment:: Lipid panel and glycosylated hemoglobin in the a.m. Qualifiers: Hyperlipidemia type: unspecified Qualified Code(s): E78.5 - Hyperlipidemia , unspecified (9) Hypertension SNOMED Code(s): 62860520 Code(s): I10 - ESSENTIAL (PRIMARY) HYPERTENSION Status: Chronic Priority : Medium Current Visit: No Annotation/Comment:: Blood pressure somewhat elevated initially in the emergency room. Continue to observe closely. Medication adjustments depending on his clinical course, however note baseline borderline bradycardia. Qualifiers: Hypertension type: essential hypertension Qualified Code(s): I10 - Essential (primary) hypertension (10) PVCs (premature ventricular contractions) SNOMED Code(s): 75069126 Code(s): I49.3 - VENTRICULAR PREMATURE DEPOLARIZATION Status: Acute Priority: High Current Visit: No Onset Date: 07/29/15 Annotation/Comment: : Previous history of PVCs and bigeminy with no significant arrhythmia during emergency room care (11) Elevated lactic acid level SNOMED Code(s): 6780752 Code(s): R79.89 - OTHER SPECIFIED ABNORMAL FINDINGS OF BLOOD CHEMISTRY Status: Acute Priority: High Current Visit: No Onset Date: 09/25/19 Annotation/Comment:: Elevated lactic acid level. No fever or evidence of infection, sepsis, etc. Note extremely difficult lab draw. Repeat lactic acid level in the a.m. with cardiac enzymes, etc. - Problem List Review Problem List Initiated/Reviewed/Updated: Yes - My Orders Last 24 Hours: My Active Orders 09/25/19 19:43 Cardiac Monitoring [RC] . DIRECTED EKG Documentation Completion [RC] ASDIRECTED Oxygen Therapy, ED [RC] PRN Peripheral IV Care [RC] . DIRECTED Pulse Oximetry [RC] CONTINUOUS Up With Assistance [RC] PFP Vital Signs [RC] PFP Chest 1V Frontal [CR] Stat Sodium Chloride 0.9% [Saline Flush] 10 ml FLUSH ASDIRECTED PRN Obtain Past Medical Record [OM.PC] Urgent Peripheral IV Insertion Adult [OM.PC] Stat Resuscitation Status Stat 09/25/19 20:32 D-DIMER QUANTITATIVE [COAG] Stat 09/25/19 Breakfast Nothing per Oral Now Diet [DIET] - Assessment/Plan Admission H&P: Please use this note as an admission H&P Last 24 Hours: My Active Orders 09/25/19 19:43 Cardiac Monitoring [RC] . DIRECTED EKG Documentation Completion [RC] ASDIRECTED Oxygen Therapy, ED [RC] PRN Peripheral IV Care [RC] . DIRECTED Pulse Oximetry [RC] CONTINUOUS Up With Assistance [RC] PFP Vital Signs [RC] PFP Chest 1V Frontal [CR] Stat Sodium Chloride 0.9% [Saline Flush] 10 ml FLUSH ASDIRECTED PRN Obtain Past Medical Record [OM.PC] Urgent Peripheral IV Insertion Adult [OM.PC] Stat Resuscitation Status Stat 09/25/19 20:32 D-DIMER QUANTITATIVE [COAG] Stat 09/25/19 Breakfast Nothing per Oral Now Diet [DIET] Assessment:: As above Plan: As above. Extensive precautions were given to the patient and his brother, who are in agreement with the treatment plan. The patient's condition is stable enough for observation status and general supervision. Dr. Soto assumes care in the a.m.
[2019-09-25] MEDS ORDERED: Aspirin 81 MG Tab.Chew ONE (19:57)
[2019-09-25] MEDS ORDERED: Clopidogrel 75 MG Tab PO ONE (19:59)
[2019-09-25] MEDS ORDERED: Famotidine 20 MG/2 ML SDV ONE ×2 (20:11→20:17)
[2019-09-25] MEDS: Sodium Chloride 0.9% 10 ML Syringe FLUSH PRN (20:30)
[2019-09-25 20:59] LABS: CHLORIDE,CL 106 mmol/L (98-107); SODIUM,NA 145 mmol/L (136-145)
[2019-09-25] MEDS ORDERED: Carvedilol 3.125 MG Tab PO SCH (22:24)
[2019-09-25] MEDS ORDERED: atorvaSTATin 40 MG Tab PO SCH (22:24)
[2019-09-25] MEDS ORDERED: diphenhydrAMINE 25 MG Cap PO PRN (22:24)
[2019-09-25] MEDS ORDERED: Sodium Chloride 0.9% 10 ML Syringe FLUSH PRN (22:25)
[2019-09-25] MEDS ORDERED: Enoxaparin 40 MG/0.4 ML Syringe SUBCUT SCH (23:00)
[2019-09-25] MEDS: Nitroglycerin 2% Oint 1 GM UD Packet TOP SCH (23:27)
[2019-09-25] MEDS: Phenytoin 100 MG Cap.ER PO SCH (23:36)
[2019-09-26] MEDS ORDERED: Morphine 2 MG/ML Syringe IVPUSH PRN (00:56)
[2019-09-26] MEDS: Ondansetron 4 MG/2 ML SDV IVPUSH PRN ×2 (01:30→07:29)
[2019-09-26] MEDS: Sodium Chloride 0.9% 10 ML Syringe FLUSH PRN (01:31)
[2019-09-26] MEDS: Nitroglycerin 2% Oint 1 GM UD Packet TOP SCH ×2 (04:47→10:52)
[2019-09-26] MEDS: Cyanocobalamin (Vitamin B12) 1,000 MCG Tab PO SCH ×2 (07:29→09:58)
[2019-09-26] MEDS: Aspirin 81 MG Tab.EC PO SCH ×2 (07:29→09:57)
[2019-09-26] MEDS: Clopidogrel 75 MG Tab PO SCH ×2 (07:30→09:58)
[2019-09-26] MEDS: Phenytoin 100 MG Cap.ER PO SCH ×2 (07:38→15:45)
[2019-09-26 07:49] LABS: HEMOGLOBIN A1C 5.5 % (4.3-5.7)
[2019-09-26] MEDS ORDERED: ESCITALOPRAM 5 MG PO SCH (08:00)
[2019-09-26] MEDS ORDERED: Carvedilol 6.25 MG Tab PO SCH (08:00)
[2019-09-26 08:11] LABS: CHLORIDE,CL 106 mmol/L (98-107); SODIUM,NA 143 mmol/L (136-145)
[2019-09-26] MEDS: KEPPRA PO SCH ×2 (10:16→10:17)
[2019-09-26] MEDS ORDERED: KEPPRA 1000 MG PO SCH (15:30)
[2019-09-26] MEDS ORDERED: levETIRAcetam 500 MG Tab PO SCH (15:30)
--- NOTE | 2019-09-26 16:04 | PCM.DCSUM1 ---
Discharge Summary - Hospital Course Brief History: Admitted for evaluation of chest pain/rule-out IN. Centralized chest pain episode with diaphoresis. Diagnosis: Stroke: No - Discharge Data Discharge Date: 09/26/19 Discharge Disposition: Home, Self-Care 01 Condition: Good - Referral to Home Health Primary Care Physician: PCP None - Discharge Diagnosis/Problem(s) (1) Chest pain SNOMED Code(s): 42516134 ICD Code: R07.9 - CHEST PAIN, UNSPECIFIED Status: Acute Priority: High Current Visit: No Onset Date: 09/25/19 Problem Details: Serial troponins negative. No acute changes noted on EKGs. Patient remains pain-free. Call placed to [facility] and patient reviewed with . No need to tranfer patient at this time. Patient may be discharged home. He has appointment made to follow up with his [facility] on Sunday. If chest returns over the weekend then it is advised to transfer him to [facility] for additional evaluation. Qualifiers: Chest pain type: precordial pain Qualified Code(s): R07.2 - Precordial pain (2) Elevated lactic acid level SNOMED Code(s): 4106816 ICD Code: R79.89 - OTHER SPECIFIED ABNORMAL FINDINGS OF BLOOD CHEMISTRY Status: Acute Priority: High Current Visit: No Onset Date: 09/25/19 Problem Details: Improved today (3) PVCs (premature ventricular contractions) SNOMED Code(s): 84539465 ICD Code: I49.3 - VENTRICULAR PREMATURE DEPOLARIZATION Status: Chronic Priority: High Current Visit: No Onset Date: 07/29/15 Problem Details: Previous history of PVCs and bigeminy with no significant arrhythmia during emergency room care (4) Coronary artery disease SNOMED Code(s): 37924558 ICD Code: I25.10 - ATHSCL HEART DISEASE OF [place] CORONARY ARTERY W/O ANG PCTRS Status: Chronic Priority: High Current Visit: No Problem Details: Known heart disease with history of recurrent PTCA/stent 2 as above. Qualifiers: Coronary Disease-Associated Artery/Lesion type: [place] artery [place] vs. transplanted heart: [place] heart Associated angina: with stable angina Qualified Code(s): I25.118 - Atherosclerotic heart disease of [place] coronary artery with other forms of angina pectoris (5) Hyperlipidemia SNOMED Code(s): 66237938 ICD Code: E78.5 - HYPERLIPIDEMIA, UNSPECIFIED Status: Chronic Priority: Medium Current Visit: No Problem Details: Lipid levels stable. Qualifiers: Hyperlipidemia type: unspecified Qualified Code(s): E78.5 - Hyperlipidemia , unspecified (6) Hypertension SNOMED Code(s): 01716200 ICD Code: I10 - ESSENTIAL (PRIMARY) HYPERTENSION Status: Chronic Priority : Medium Current Visit: No Problem Details: Overall stable throughout stay. Follow up with Cardiology on Sunday Qualifiers: Hypertension type: essential hypertension Qualified Code(s): I10 - Essential (primary) hypertension (7) Mixed anxiety depressive disorder SNOMED Code(s): 593057123 ICD Code: F41.8 - OTHER SPECIFIED ANXIETY DISORDERS Status: Chronic Priority: Medium Current Visit: No Problem Details: Stable per patient history. Continue to observe closely by his regular provider. (8) Osteoarthritis SNOMED Code(s): 432328462 ICD Code: M19.90 - UNSPECIFIED OSTEOARTHRITIS, UNSPECIFIED SITE Status: Chronic Priority: Medium Current Visit: No Problem Details: Stable by patient history Qualifiers: Osteoarthritis location: multiple joints Osteoarthritis type: primary Qualified Code(s): M15.0 - Primary generalized (osteo)arthritis (9) [place] epilepsy SNOMED Code(s): 95704647, 79869396 ICD Code: G40.A09 - ABSENCE EPILEPTIC SYNDROME, NOT INTRACTABLE, W/O STAT EPI Status: Chronic Priority: Medium Current Visit: No Problem Details: Stable by patient history with patient closely followed by neurology at [facility]. Qualifiers: Intractability: not intractable Status epilepticus: without status epilepticus Qualified Code(s): G40.A09 - Absence epileptic syndrome, not intractable, without status epilepticus (10) Sleep apnea SNOMED Code(s): 40457610 ICD Code: G47.30 - SLEEP APNEA, UNSPECIFIED Status: Chronic Priority: Medium Current Visit: No Problem Details: No CPAP use with chronic insomnia Qualifiers: Sleep apnea type: obstructive Qualified Code(s): G47.33 - Obstructive sleep apnea (adult) (pediatric) - Patient Summary/Data Hospital Course: Serial troponins negative. No acute changes noted on EKG/Telemetry. No return of chest pain complaint today. Patient feels back to baseline. Patient reviewed with Cardiology as noted above. Previous visit for CP in Jul was different in that patient's pain followed his attempt to do 10 pushups and pain reproducible with deep breathing and by palpation. Strongly suggestive of chest wall pain. This time pain is not reproducible with palpation but it also did not improve with nitro. Given timing with eating, also must consider possible GI etiology. Precautions reviewed with patient. He knows to follow up over the weekend if he has any additional problems. Otherwise he is planning to follow up with Cardiology on Sunday (he made his own appointment). - Patient Instructions Diet: Usual Diet as Tolerated Activity: As Tolerated Driving: May Drive Today Showering/Bathing: May Shower Notify Provider of: Increased Pain Other/Special Instructions: Follow up for recheck over the weekend if your problems return (chest pain, sweating, nausea, short of breath, etc). Otherwise follow up Sunday at your scheduled Cardiology appointment. - Discharge Plan *PRESCRIPTION DRUG MONITORING PROGRAM REVIEWED*: Not Applicable *COPY OF PRESCRIPTION DRUG MONITORING REPORT IN PATIENT SAAD: Not Applicable Home Medications: Home Meds Calcium Carbonate/Vitamin D3 [Calcium 600 + Vit D 200] 1 each PO DAILY 07/29/15 [History] Escitalopram [Lexapro] 5 mg PO DAILY 07/29/15 [History] Nitroglycerin [Nitrostat] 0.4 mg SL Q5M PRN 07/29/15 [History] atorvaSTATin [Lipitor] 40 mg PO BEDTIME 07/29/15 [History] carvediloL [Carvedilol] 3.125 mg PO BEDTIME 07/29/15 [History] levETIRAcetam [Keppra] 1,000 mg PO DAILY@1530 07/29/15 [History] levETIRAcetam [Keppra] 2,000 mg PO DAILY@0730,2330 07/29/15 [History] Ibuprofen [Motrin] 200 mg PO Q4H PRN 02/26/17 [History] Sennosides/Docusate Sodium [Senna-S Tablet] 1 each PO BID PRN 02/26/17 [History] Ascorbic Acid [Vitamin C] 1,000 mg PO DAILY 08/02/19 [History] Aspirin [Halfprin] 81 mg PO MOWEFR 08/02/19 [History] Clopidogrel Bisulfate [Clopidogrel] 1 tab PO DAILY 08/02/19 [History] Cyanocobalamin (Vitamin B12) [Vitamin B12] 1,000 mcg PO DAILY 08/02/19 [History] carvediloL [Carvedilol] 6.25 mg PO DAILY 08/02/19 [History] Patient's Own Medication [Ptom] 0 each PO DAILY@22 each 08/06/19 [Rx] Phenytoin 100 mg PO TID@0730,1500,2330 #60 cap.er 08/06/19 [Rx] Isosorbide Mononitrate [Isosorbide Mononitrate ER] 30 mg PO DAILY 09/25/19 [ History] diphenhydrAMINE [Benadryl] 100 mg PO BEDTIME PRN 09/25/19 [History] Forms: ED Department Discharge - Discharge Summary/Plan Comment DC Time >30 min.: No - General Info Date of Service: 09/26/19 Admission Dx/Problem (Free Text: Chest pain complaint. R/O IN protocol. Subjective Update: No complaint of chest pain. Pt feels back to baseline. No other acute changes reported. Functional Status: Reports: Pain Controlled, Tolerating Diet, Ambulating, Urinating. Denies: New Symptoms - Review of Systems General: Denies: Fever, Malaise, Chills, Night Sweats HEENT: Denies: Dysphasia, Ear Pain, Eye Pain, Headaches, Sinus Congestion, Sore Throat, Visual Changes Pulmonary: Denies: Shortness of Breath, Pleuritic Chest Pain, Cough, Sputum, Hemoptysis, Wheezing Cardiovascular: Denies: Chest Pain, Palpitations, Lightheadedness Gastrointestinal: Denies: Abdominal Pain, Constipation, Diarrhea, Difficulty Swallowing, Nausea, Vomiting Genitourinary: Reports: No Symptoms Musculoskeletal: Reports: Other (no acute changes from baseline) Skin: Reports: No Symptoms Neurological: Reports: No Symptoms Psychiatric: Reports: No Symptoms - Patient Data Vitals - Most Recent: Last Vital Signs Temp 37.3 C 09/26/19 14:00 Pulse 68 09/26/19 14:00 Resp 20 09/26/19 14:00 BP 121/56 L 09/26/19 14:00 Pulse Ox 84 L 09/26/19 14:00 Weight - Most Recent: 137.892 kg I&O - Last 24 hours: Intake & Output 09/26/19 09/26/19 09/26/19 06:59 14:59 22:59 Intake Total 480 Balance 480 Lab Results - Last 24 hrs: Laboratory Results - last 24 hr 09/25/19 09/25/19 09/25/19 Range/Units 20:32 20:32 20:32 WBC 12.1 H (4.0-10.2) K/uL RBC 4.57 (4.33-5.41) M/uL Hgb 13.5 D (13.1-16.8) g/dL Hct 43.3 (39.0-49.0) % MCV 94.7 (84.0-98.0) fL MCH 29.5 (28.2-33.3) pg MCHC 31.2 L (31.7-36.0) g/dL RDW 13.4 (11.2-14.1) % Plt Count 275 (150-350) K/uL Neut % (Auto) 74.8 (45.0-80.0) % Lymph % (Auto) 16.1 (10.0-50.0) % [place] % (Auto) 7.0 (2.0-14.0) % Eos % (Auto) 1.4 (0.0-5.0) % Baso % (Auto) 0.7 (0.0-2.0) % Neut # (Auto) 9.07 H (1.40-7.00) K/uL Lymph # (Auto) 1.95 (0.50-3.50) K/uL [place] # (Auto) 0.85 (0.00-1.00) K/uL Eos # (Auto) 0.17 (0.00-0.50) K/uL Baso # (Auto) 0.08 (0.00-0.20) K/uL PT 10.3 (9.5-12.0) SEC INR 1.0 APTT 25.4 (21.0-31.3) SEC D-Dimer, Quantitative 87688 H (0-400) ng/mL Sodium (136-145) mmol/L Potassium (3.5-5.1) mmol/L Chloride (98-107) mmol/L Carbon Dioxide (21.0-32.0) mmol/L BUN (7-18) mg/dL Creatinine (0.51-1.17) mg/dL Est Cr Clr Drug Dosing Estimated GFR (MDRD) mL/min Glucose (74-106) mg/dL Hemoglobin A1c (4.3-5.7) % Lactic Acid (0.4-2.0) mmol/L Uric Acid (2.6-7.2) mg/dL Calcium (8.5-10.1) mg/dL Magnesium (1.8-2.4) mg/dL Total Bilirubin (0.2-1.0) mg/dL AST (15-37) U/L ALT (12-78) U/L Alkaline Phosphatase (46-116) IU/L Creatine Kinase (26-308) U/L Creatine Kinase Index (0.0-2.5) % CK-MB (CK-2) (0.00-3.60) ng/mL Troponin I (0.000-0.056) ng/mL NT-Pro-B Natriuret Pep (0-125) pg/mL Total Protein (6.4-8.2) g/dL Albumin (3.4-5.0) g/dL Triglycerides (30-150) mg/dL Cholesterol (100-200) mg/dL LDL Cholesterol, Calc (0-100) mg/dL HDL Cholesterol (40-60) mg/dL Amylase (25-115) U/L Lipase (73-393) U/L TSH, Ultra Sensitive (0.358-3.740) mIU/mL 09/25/19 09/25/19 09/26/19 Range/Units 20:32 20:32 07:25 WBC 14.6 H (4.0-10.2) K/uL RBC 4.32 L (4.33-5.41) M/uL Hgb 12.8 L (13.1-16.8) g/dL Hct 40.2 (39.0-49.0) % MCV 93.1 (84.0-98.0) fL MCH 29.6 (28.2-33.3) pg MCHC 31.8 (31.7-36.0) g/dL RDW 12.9 (11.2-14.1) % Plt Count 260 (150-350) K/uL Neut % (Auto) 82.0 H (45.0-80.0) % Lymph % (Auto) 9.6 L (10.0-50.0) % [place] % (Auto) 8.1 (2.0-14.0) % Eos % (Auto) 0.0 (0.0-5.0) % Baso % (Auto) 0.3 (0.0-2.0) % Neut # (Auto) 12.00 H (1.40-7.00) K/uL Lymph # (Auto) 1.40 (0.50-3.50) K/uL [place] # (Auto) 1.19 H (0.00-1.00) K/uL Eos # (Auto) 0.00 (0.00-0.50) K/uL Baso # (Auto) 0.05 (0.00-0.20) K/uL PT (9.5-12.0) SEC INR APTT (21.0-31.3) SEC D-Dimer, Quantitative (0-400) ng/mL Sodium 145 (136-145) mmol/L Potassium 3.8 (3.5-5.1) mmol/L Chloride 106 (98-107) mmol/L Carbon Dioxide 23.6 (21.0-32.0) mmol/L BUN 15 (7-18) mg/dL Creatinine 0.94 (0.51-1.17) mg/dL Est Cr Clr Drug Dosing TNP Estimated GFR (MDRD) > 60 mL/min Glucose 139 H (74-106) mg/dL Hemoglobin A1c (4.3-5.7) % Lactic Acid 2.3 H (0.4-2.0) mmol/L Uric Acid 1.6 L (2.6-7.2) mg/dL Calcium 8.8 (8.5-10.1) mg/dL Magnesium 2.1 (1.8-2.4) mg/dL Total Bilirubin 0.5 (0.2-1.0) mg/dL AST 15 (15-37) U/L ALT 24 (12-78) U/L Alkaline Phosphatase 159 H (46-116) IU/L Creatine Kinase 54 (26-308) U/L Creatine Kinase Index 1.5 (0.0-2.5) % CK-MB (CK-2) 0.80 (0.00-3.60) ng/mL Troponin I 0.000 (0.000-0.056) ng/mL NT-Pro-B Natriuret Pep 10 (0-125) pg/mL Total Protein 6.5 (6.4-8.2) g/dL Albumin 3.8 (3.4-5.0) g/dL Triglycerides (30-150) mg/dL Cholesterol (100-200) mg/dL LDL Cholesterol, Calc (0-100) mg/dL HDL Cholesterol (40-60) mg/dL Amylase 53 (25-115) U/L Lipase 106 (73-393) U/L TSH, Ultra Sensitive 1.443 (0.358-3.740) mIU/mL 09/26/19 09/26/19 09/26/19 Range/Units 07:25 07:25 07:25 WBC (4.0-10.2) K/uL RBC (4.33-5.41) M/uL Hgb (13.1-16.8) g/dL Hct (39.0-49.0) % MCV (84.0-98.0) fL MCH (28.2-33.3) pg MCHC (31.7-36.0) g/dL RDW (11.2-14.1) % Plt Count (150-350) K/uL Neut % (Auto) (45.0-80.0) % Lymph % (Auto) (10.0-50.0) % [place] % (Auto) (2.0-14.0) % Eos % (Auto) (0.0-5.0) % Baso % (Auto) (0.0-2.0) % Neut # (Auto) (1.40-7.00) K/uL Lymph # (Auto) (0.50-3.50) K/uL [place] # (Auto) (0.00-1.00) K/uL Eos # (Auto) (0.00-0.50) K/uL Baso # (Auto) (0.00-0.20) K/uL PT (9.5-12.0) SEC INR APTT (21.0-31.3) SEC D-Dimer, Quantitative (0-400) ng/mL Sodium 143 (136-145) mmol/L Potassium 4.0 (3.5-5.1) mmol/L Chloride 106 (98-107) mmol/L Carbon Dioxide 28.0 (21.0-32.0) mmol/L BUN 14 (7-18) mg/dL Creatinine 0.78 (0.51-1.17) mg/dL Est Cr Clr Drug Dosing 99.53 Estimated GFR (MDRD) > 60 mL/min Glucose 161 H (74-106) mg/dL Hemoglobin A1c 5.5 (4.3-5.7) % Lactic Acid 2.1 H (0.4-2.0) mmol/L Uric Acid (2.6-7.2) mg/dL Calcium 8.7 (8.5-10.1) mg/dL Magnesium (1.8-2.4) mg/dL Total Bilirubin 0.4 (0.2-1.0) mg/dL AST 14 L (15-37) U/L ALT 21 (12-78) U/L Alkaline Phosphatase 130 H (46-116) IU/L Creatine Kinase 61 (26-308) U/L Creatine Kinase Index 1.3 (0.0-2.5) % CK-MB (CK-2) 0.80 (0.00-3.60) ng/mL Troponin I 0.000 (0.000-0.056) ng/mL NT-Pro-B Natriuret Pep (0-125) pg/mL Total Protein 7.2 (6.4-8.2) g/dL Albumin 3.4 (3.4-5.0) g/dL Triglycerides 38 (30-150) mg/dL Cholesterol 153 (100-200) mg/dL LDL Cholesterol, Calc 84 (0-100) mg/dL HDL Cholesterol 61 H (40-60) mg/dL Amylase (25-115) U/L Lipase (73-393) U/L TSH, Ultra Sensitive (0.358-3.740) mIU/mL Med Orders - Current: Current Medications Aspirin (Halfprin) 81 mg PO MoWeFr@0800 [facility] Last Admin: 09/26/19 09:57 Dose: Not Given Atorvastatin Calcium (Lipitor) 40 mg PO BEDTIME [facility] Last Admin: 09/25/19 23:36 Dose: 40 mg Carvedilol (Coreg) 3.125 mg PO BEDTIME [facility] Last Admin: 09/25/19 23:28 Dose: 3.125 mg Carvedilol (Coreg) 6.25 mg PO DAILY [facility] Last Admin: 09/26/19 09:57 Dose: Not Given Clopidogrel Bisulfate (Plavix) 75 mg PO DAILY [facility] Last Admin: 09/26/19 09:58 Dose: Not Given Cyanocobalamin (Vitamin B12) 1,000 mcg PO DAILY [facility] Last Admin: 09/26/19 09:58 Dose: Not Given Diphenhydramine HCl (Benadryl) 100 mg PO BEDTIME PRN PRN Reason: Insomnia Last Admin: 09/25/19 23:36 Dose: 100 mg Enoxaparin Sodium (Lovenox) 40 mg SUBCUT Q24H [facility] Last Admin: 09/25/19 23:27 Dose: 40 mg Morphine Sulfate (Morphine) 1 mg IVPUSH Q4H PRN PRN Reason: Pain (severe 7-10) Last Admin: 09/26/19 01:30 Dose: 1 mg Nitroglycerin (Nitro-Bid 2%) 0.5 gm TOP Q6H [facility] Last Admin: 09/26/19 10:52 Dose: 0.5 gm Non-Formulary Medication (Escitalopram [Lexapro]) 5 mg PO DAILY [facility] Keppra 100mg Tablets 2,000 mg PO DAILY@0730,2330 [facility] Last Admin: 09/26/19 10:17 Dose: Not Given Keppra 1000mg (Tablets) 1 each PO DAILY@1530 [facility] Last Admin: 09/26/19 15:44 Dose: 1 each Ondansetron HCl (Zofran) 4 mg IVPUSH Q6H PRN PRN Reason: Nausea/Vomiting Last Admin: 09/26/19 07:29 Dose: 4 mg Phenytoin Sodium (Phenytoin) 100 mg PO TID@0730,1500,2330 [facility] Last Admin: 09/26/19 15:45 Dose: 100 mg Senna/Docusate Sodium (Senna Plus) 1 tab PO BID PRN PRN Reason: Constipation Sodium Chloride (Saline Flush) 10 ml FLUSH ASDIRECTED PRN PRN Reason: Keep Vein Open Last Admin: 09/26/19 01:31 Dose: 10 ml Sodium Chloride (Saline Flush) 10 ml FLUSH Q12HR PRN PRN Reason: Keep Vein Open Discontinued Medications Aspirin (Aspirin) 324 mg CHEW ONETIME ONE Stop: 09/25/19 19:44 Last Admin: 09/25/19 19:56 Dose: 324 mg Aspirin (Aspirin) Confirm Administered Dose 243 mg .ROUTE .STK-MED ONE Stop: 09/25/19 19:58 Last Admin: 09/25/19 20:30 Dose: Not Given Clopidogrel Bisulfate (Plavix) 300 mg PO ONETIME ONE Stop: 09/25/19 20:00 Last Admin: 09/25/19 20:12 Dose: 300 mg Famotidine (Pepcid) 40 mg IVPUSH ONETIME ONE Stop: 09/25/19 19:44 Last Admin: 09/25/19 20:10 Dose: 40 mg Famotidine (Pepcid) Confirm Administered Dose 20 mg .ROUTE .STK-MED ONE Stop: 09/25/19 20:12 Last Admin: 09/25/19 20:30 Dose: Not Given Famotidine (Pepcid) Confirm Administered Dose 20 mg .ROUTE .STK-MED ONE Stop: 09/25/19 20:18 Last Admin: 09/25/19 20:30 Dose: Not Given Levetiracetam (Keppra) 1,000 mg PO DAILY@1530 [facility] Ticagrelor (Brilinta) 180 mg PO ONETIME ONE Stop: 09/25/19 19:44 Last Admin: 09/25/19 19:59 Dose: Not Given - Exam Quality Assessment: Reports: DVT Prophylaxis General: Reports: Alert, Oriented, Cooperative, No Acute Distress HEENT: Reports: Pupils Equal, Pupils Reactive, Mucous Membr. Moist/[place] Neck: Reports: Supple Lungs: Reports: Clear to Auscultation, Normal Respiratory Effort Cardiovascular: Reports: Regular Rate, Regular Rhythm GI/Abdominal Exam: Normal Bowel Sounds, Soft, Non-Tender, No Distention (Male) Exam: Deferred Rectal (Males) Exam: Deferred Back Exam: Denies: CVA Tenderness (L), CVA Tenderness (R), Muscle Spasm Extremities: Non-Tender, Normal Capillary Refill Skin: Reports: Warm, Dry Neurological: Reports: No New Focal Deficit Psy/Mental Status: Reports: Alert, Normal Affect, Normal Mood EKG INTERPRETATION EKG Date: 09/26/19 Time: 07:28 Rhythm: NSR Rate (Beats/Min): 76 [place]: Normal P-Wave: Present QRS: Normal ST-T: Normal QT: Prolonged Comparison: Other: (minimal change overall. QT more prolonged today.)
[2019-09-30] MEDS: Phenytoin 100 MG Cap.ER PO SCH (20:46)
== END 2019-09-26 18:00 | disposition home or self-care (01) ==
LOC: LL.ED 19:41 → UNDOADMOB 21:40 → LL.MS 21:40
PROVIDERS: ADMIT Family Medicine; ATTEND Family Medicine
DX: R07.2 Precordial pain (principal); R79.89 Other specified abnormal findings of blood chemistry; I49.3 Ventricular premature depolarization; I25.118 Atherosclerotic heart disease of native coronary artery with other forms of angina pectoris; E78.5 Hyperlipidemia, unspecified; I10 Essential (primary) hypertension; M15.0 Primary generalized (osteo)arthritis; G40.A09 Absence epileptic syndrome, not intractable, without status epilepticus; G47.33 Obstructive sleep apnea (adult) (pediatric); E78.00 Pure hypercholesterolemia, unspecified; F41.8 Other specified anxiety disorders; E66.9 Obesity, unspecified; Z79.899 Other long term (current) drug therapy; Z79.82 Long term (current) use of aspirin; Z79.02 Long term (current) use of antithrombotics/antiplatelets; Z88.1 Allergy status to other antibiotic agents; Z88.2 Allergy status to sulfonamides; Z88.6 Allergy status to analgesic agent; Z88.8 Allergy status to other drugs, medicaments and biological substances; Z68.39 Body mass index [BMI] 39.0-39.9, adult
CPT/HCPCS: 36415; 71045; 80053; 80061; 82150; 82550; 82553; 83036; 83605; 83690; 83735; 83880; 84443; 84484; 84550; 85025; 85379; 85610; 85730; 93005; 96372; 96374; 96375; 96376; 99285; A9270; G0378; J1650; J2270; J2405; J3490; 93010; 99217; 99218

== ENCOUNTER 2019-11-01 11:30 | Emergency (ER) | payer MEDICARE, OTHER ==
[2019-11-01] MEDS ORDERED: Ondansetron 4 MG/2 ML SDV IVPUSH ONE (11:59)
[2019-11-01] MEDS ORDERED: Pantoprazole 40 MG Vial IVPUSH ONE (11:59)
[2019-11-01] MEDS ORDERED: Famotidine 20 MG/2 ML SDV IVPUSH ONE (11:59)
--- NOTE | 2019-11-01 11:59 | EDM.PDOC ---
ED HPI GENERAL MEDICAL PROBLEM - General Chief Complaint: Abdominal Pain Stated Complaint: abdominal pain Time Seen by Provider: 11/01/19 11:45 Source of Information: Reports: Patient, Family (Brother), Old Records ([facility] chart/EMR), Other ([facility]) History Limitations: Reports: No Limitations - History of Present Illness INITIAL COMMENTS - FREE TEXT/NARRATIVE: The patient was brought to the emergency room via private automobile by his brother for evaluation of intermittent 10/10 diffuse abdominal both sharp and dull abdominal pain with symptoms initially presenting as mild heartburn type symptoms, which woke him up at about 5 AM this morning. The patient has had 4 episodes of emesis since that time, including after taking his morning medications. The patient did take some Pepto-Bismol at about 8 AM this morning with some initial improvement of symptoms and no emesis thereafter. He did have a large bowel movement earlier this morning, although this was somewhat light in nature. He denies any gross hematuria, colic, or other UTI symptoms. No recent history of diarrhea, melena, gross hematochezia, hematemesis or any food intolerance, including fatty foods, etc.. The patient denies any chest pain/ pressure, heart flutter, dizziness, orthostasis, orthopnea, diaphoresis, paresthesias, recent decreased exercise tolerance, or any other anginal-type symptoms. The patient also denies any recent fever, cough, wheezing, dyspnea, etc.. No history of recent headaches, visual changes, diplopia, change in mental status, or other change in baseline neurological status. No known history of exposure to infection, food poisoning, etc. Onset: Today, Sudden Onset Date: 11/01/19 Onset Time: 05:00 Duration: Getting Worse, Intermittent Location: Reports: Abdomen. Denies: Head, Face, Chest, Back, Upper Extremity, Left, Upper Extremity, Right, Radiates to Quality: Reports: Ache, Same as Previous Episode, Sharp Severity: Severe Improves with: Reports: Medication (As above) Worsens with: Reports: None Context: Denies: Sick Contact, Trauma Associated Symptoms: Reports: Nausea/Vomiting, Weakness (Stable chronic left- sided). 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: Other Medication(s) (As above) Abdomen Pain Score (Numeric/FACES): 10 Bilateral Upper Abdominal Pain Score (Numeric/FACES): 7 - Related Data Allergies Allergy/AdvReac Type Severity Reaction Status Date / Time levofloxacin [From Levaquin] Allergy Dizziness Verified 11/01/19 11:32 Sulfa (Sulfonamide Allergy Cannot Verified 11/01/19 11:32 Antibiotics) Remember acetaminophen [From Tylenol] AdvReac Other Verified 11/01/19 11:32 ticagrelor [From Brilinta] AdvReac Other Verified 11/01/19 11:32 Home Meds: Home Meds Calcium Carbonate/Vitamin D3 [Calcium 600 + Vit D 200] 1 each PO DAILY 07/29/15 [History] Escitalopram [Lexapro] 5 mg PO DAILY 07/29/15 [History] atorvaSTATin [Lipitor] 40 mg PO DAILY@2200 07/29/15 [History] carvediloL [Carvedilol] 3.125 mg PO BEDTIME 07/29/15 [History] levETIRAcetam [Keppra] 1,000 mg PO DAILY@1530 07/29/15 [History] levETIRAcetam [Keppra] 2,000 mg PO DAILY@0730,2330 07/29/15 [History] Ibuprofen [Motrin] 200 mg PO Q4H PRN 02/26/17 [History] Sennosides/Docusate Sodium [Senna-S Tablet] 1 each PO BID PRN 02/26/17 [History] Ascorbic Acid [Vitamin C] 1,000 mg PO DAILY 08/02/19 [History] Aspirin [Halfprin] 81 mg PO MOWEFR 08/02/19 [History] Clopidogrel Bisulfate [Clopidogrel] 1 tab PO DAILY 08/02/19 [History] Cyanocobalamin (Vitamin B12) [Vitamin B12] 1,000 mcg PO DAILY 08/02/19 [History] carvediloL [Carvedilol] 6.25 mg PO DAILY 08/02/19 [History] Phenytoin 100 mg PO TID@0730,1500,2330 #60 cap.er 08/06/19 [Rx] Isosorbide Mononitrate [Isosorbide Mononitrate ER] 30 mg PO DAILY 09/25/19 [ History] diphenhydrAMINE [Benadryl] 100 mg PO BEDTIME PRN 09/25/19 [History] Bisacodyl [Dulcolax] 10 mg RC DAILY PRN 11/01/19 [History] Carboxymethylcellulose Sodium [Refresh Tears 0.5% Ophth Soln] 1 drop OP Q2HR PRN 11/01/19 [History] Doxylamine Succinate [Unisom] 1 tab PO BEDTIME PRN 11/01/19 [History] Melatonin 3 mg PO BEDTIME PRN 11/01/19 [History] Past Medical History HEENT History: Reports: Cataract, Hard of Hearing, Impaired Vision, Other (See Below). Denies: Allergic Rhinitis, Glaucoma, Macular Degeneration, Otitis Media , Retinal Detachment Other HEENT History: Patient wears reading glasses. Moderate bilateral presbycusis with no current hearing aide therapy. Cardiovascular History: Reports: Arrhythmia, CAD, Cardiomyopathy, High Cholesterol, Hypertension, PTCA, Pulmonary Hypertension, Stents, Other (See Below). Denies: Afib, Aneurysm, Blood Clots/VTE/DVT, Heart Murmur, DC, PVD, Syncope Other Cardiovascular History: Coronary artery disease initially diagnosed in 2014 with procedures as below. PACs, PVCs and bigeminy with exercise. Bradycardia secondary to medications. Minimal diffuse valvular disease with grade 1 diastolic dysfunction and moderate pulmonary hypertension by echocardiogram. Respiratory History: Reports: Bronchitis, Recurrent, COPD, Intubation, Previous , Sleep Apnea, Other (See Below). Denies: Asthma, Intubation, Difficult, PE, Pneumonia, Recurrent, Pneumothorax, TB Other Respiratory History: COPD by chest x-ray with no current medical therapy. He does not have a CPAP machine. Gastrointestinal History: Reports: Chronic Constipation, Gastritis, Helicobacter Pylori, PUD, Other (See Below). Denies: Bowel Obstruction, Celiac Disease, Cholelithiasis, Chronic Diarrhea, Colon Polyp, Diverticulosis, Fatty Liver, Fecal Incontinence, GERD, GI Bleed, Hepatitis, Hiatal Hernia, Inflammatory Bowel Disease, Irritable Bowel Syndrome, Jaundice, Pancreatitis Other Gastrointestinal History: H. pylori diagnosed on 06/30/12. Genitourinary History: Reports: BPH, Prostate Disorder, UTI, Recurrent. Denies : Acute Renal Failure, Chronic Renal Insuffiency, Renal Calculus, Retention, Urinary, STD, Urinary Incontinence Musculoskeletal History: Reports: Arthritis, Back Pain, Chronic, Fracture, Neck Pain, Chronic, Osteoarthritis, Other (See Below). Denies: Amputation, Gout, Osteoporosis, SLE Other Musculoskeletal History: Right rib fracture in the . Right rotator cuff tear on 06/30/06. Chronic left leg plantar fasciitis. Neurological History: Reports: Concussion, Headaches, Chronic, Head Trauma, Migraines, Seizure. 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 Head concussion in 1962 with apparent cerebral injury at resulting in right-sided scar requiring surgery as below. Head injury from a horse in 1962. Encephalomalacia by CT scan on 08/02/19. Psychiatric History: Reports: Anxiety, Depression, Suicide Attempt, Suicidal Ideation. Denies: Abuse, Victim of, ADD, ADHD, Addiction, Alzheimers Disease, Dementia, Psych Hospitalization(s), PTSD Other Psychiatric History: Chronic insomnia. Suicide attempts X 4 in 1970. Previous suicidal thoughts regarding his severe medical history. Endocrine/Metabolic History: Reports: Obesity/BMI 30+, Other (See Below). Denies: Diabetes, Type I, Diabetes, Type II, Diabetes Mellitus, Type 3c, Hypothyroidism, IDDM, Osteopenia, Osteoporosis Other Endocrine/Metabolic History: Hypoalbuminemia. Hematologic History: Reports: Blood Transfusion(s), Other (See Below). Denies: Anemia, B12 Deficiency, Iron Deficiency Other Hematologic History: Blood transfusion in 1974 at time of brain surgery as below. Immunologic History: Reports: None. Denies: AIDS, HIV, SLE Oncologic (Cancer) History: Reports: None. Denies: Basal Cell Carcinoma, Colon , Hodgkin's Lymphoma, Leukemia, Lymphoma, Malignant Melanoma, Non-Hodgkin's Lymphoma, Squamous Cell Carcinoma Dermatologic History: Reports: None. Denies: Eczema, Psoriasis - Infectious Disease History Infectious Disease History: Reports: Helicobacter Pylori, Mumps. Denies: C- Difficile, Chicken Pox, Measles, Meningitis, Mononucleosis, MRSA, Pertussis ( Whooping Cough), Rheumatic Fever, Rubella, Scarlet Fever, Shingles, TB, VRE - Past Surgical History Head Surgeries/Procedures: Reports: Craniotomy, Other (See Below) Other Head Surgeries/Procedures: Right frontotemporal craniotomy for cerebral scar tissue removal in 1974. HEENT Surgical History: Reports: Adenoidectomy, Cataract Surgery, Oral Surgery, Tonsillectomy, Other (See Below). Denies: Eye Surgery, Laser Surgery, LASIK, Myringotomy w Tube(s), Naso-Sinus Surgery Other HEENT Surgeries/Procedures: Bilateral cataract surgery in the 1990s. Multiple teeth extractions including wisdom teeth extraction in 1969. Tonsillectomy in the 1949s. Cardiovascular Surgical History: Reports: Coronary Artery Stent, Percutaneous Transluminal Angioplasty, Other (See Below). Denies: Aneurysm Other Cardiovascular Surgeries/Procedures: Initial PTCA/stent of the proximal LAD on 01/21/15 with repeat procedure on 02/16/17 in the same area. Respiratory Surgical History: Reports: None. Denies: Thoracentesis GI Surgical History: Reports: Colonoscopy, Hernia, Inguinal, Other (See Below). Denies: Appendectomy, Cholecystectomy, EGD, Hernia, Abdominal, Hernia Repair/ Other, Polypectomy Other GI Surgeries/Procedures: Colonoscopy in about 2011. Left inguinal hernia repair. Endocrine Surgical History: Reports: None Neurological Surgical History: Reports: None Musculoskeletal Surgical History: Reports: Shoulder Surgery, Other (See Below). Denies: Arthroscopic Procedure, ORIF Other Musculoskeletal Surgeries/Procedures:: Rotator cuff repair in 2005. Oncologic Surgical History: Reports: None Dermatological Surgical History: Reports: None - Past Imaging History Past Imaging History: Reports: Angiography (Last heart catheterization on with previous catheterization on 01/21/15.), Cardiac Echo (Last on 02/15/17 with ejection fraction of 75% with otherwise findings as above. Previous echocardiogram on 12/17/13.), CAT Scan (CT of the head on 08/04/19 and 08/02/19.), DEXA Scan (03/06/16 and 02/25/13.), Holter Monitor (06/04/17), MRI (Right shoulder in about 2005), Sleep Study (02/13/19), Stress Testing (LexiscanPET evaluation on 10/15/19 with ejection fraction of 67%. Cardiolite Stress test on 01/20/15 and 04/18/16. Low level cardiac stress test on 03/08/17 and 02/02/15.) - History Comment History Comment: He is a somewhat poor historian with patient not wishing to discuss fully his family's previous medical history, etc. during today's visit. Social & Family History - Family History Family Medical History: Noncontributory Cardiac: Reports: High Cholesterol, Hypertension, Other (See Below) Other Cardiac Family History: Hyperlipidemia and hypertension in brother. Respiratory: Reports: COPD, Other (See Below) Other Respiratory Family Hisory: Maternal uncle with COPD. Endocrine/Metabolic: Reports: Diabetes, type II, Obesity/MBI 30+, Other (See Below) Other Endocrine/Metabolic Family History: Brother with borderline diabetes and obesity. Oncologic: Reports: Lung, Non-Hodgkin's Lymphoma, Other (See Below) Other Oncologic Family History: Paternal grandfather with lung cancer in his 60s with history of tobacco use. Father with history of lymphoma possibly fatal at age 80. Maternal uncle with unknown type of cancer. - Tobacco Use Smoking Status *Q: Never Smoker Tobacco Use Within Last Twelve Months: No Used Tobacco, but Quit: No Smoking Cessation Information Provided To Patient: No Second Hand Smoke Exposure: No Second Hand Smoke Education Provided: No - Caffeine Use Caffeine Use: Reports: Soda (3-5 sodas per day.). 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 No Previous DWIs. 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 ED EXAM, GI/ABD - Physical Exam Exam: See Below Exam Limited By: No Limitations General Appearance: Alert, WD/WN, No Apparent Distress, Anxious (Moderate) Eyes: Bilateral: Normal Appearance (No nystagmus), EOMI (PERRLA) Ears: Normal External Exam, Normal Canal, Normal TMs, Hearing Loss (Moderate bilateral presbycusis with no hearing aid therapy) Nose: Normal Inspection, Normal Mucosa, No Blood Throat/Mouth: Normal Inspection, Normal Lips, Normal Teeth, Normal Gums, Normal Oropharynx, Normal Voice, No Airway Compromise. No: Dysphagia, Perioral Cyanosis Head: Atraumatic, Normocephalic. No: Facial Swelling, Facial Tenderness, Sinus Tenderness Neck: Supple, Non-Tender, Full Range of Motion, Carotid Bruit (Mild bilateral carotid bruits). No: Lymphadenopathy (L), Lymphadenopathy (R), Thyromegaly Respiratory/Chest: No Respiratory Distress, Lungs Clear, Normal Breath Sounds, No Accessory Muscle Use, Chest Non-Tender. No: Pleural Rub, Retractions Cardiovascular: Normal Peripheral Pulses, Regular Rate, Rhythm, No Edema, No Gallop, No JVD, No Murmur, No Rub. No: Gallop/S3, Gallop/S4, Friction Rub GI/Abdominal Exam: No Organomegaly, No Distention, No Abnormal Bruit, No Mass, Pelvis Stable, Tender (Mild diffuse palpation pain), Abnormal Bowel Sounds ( Mild diffuse increased however not high-pitched in nature), Other (Obese). No: Guarding, Rigid, Rebound, Hernia (Male) Exam: Deferred Rectal (Males) Exam: Normal Rectal Tone, BPH (Moderate diffuse nonnodular), Heme - Stool. No: Black Stool, Bloody Stool, Hemorrhoids, Prostate Nodule, Rectal Fissure, Tenderness (No Jered space tenderness) Back Exam: Full Range of Motion, Other (Mild kyphoscoliosis). No: CVA Tenderness (L), CVA Tenderness (R), Decreased Range of Motion, Muscle Spasm, Paraspinal Tenderness, Vertebral Tenderness Extremities: Normal Inspection, Normal Range of Motion, Non-Tender, No Pedal Edema, Normal Capillary Refill. No: Janet's Sign Neurological: Alert, Oriented, CN II-XII Intact, Normal Cognition, Normal Reflexes (Negative Babinski's), Sensory/Motor Deficit (Stable by history left hemiparesis) Psychiatric: Anxious (Mild to moderate), Depressed Mood (Mild to moderate with adequate eye contact) Skin Exam: Warm, Dry, Intact, Normal Color, No Rash. No: Diaphoretic, Wound/ Incision Lymphatic: No Adenopathy Course - Vital Signs Last Recorded V/S: Last Vital Signs Temp 36.9 C 11/01/19 16:00 Pulse 64 11/01/19 16:00 Resp 18 11/01/19 16:00 BP 171/79 H 11/01/19 16:00 Pulse Ox 95 11/01/19 16:00 Vital Signs - 24 hr 11/01/19 11/01/19 11:30 16:00 Temperature [ 36.6 C 36.9 C Temporal] Pulse, 67 64 Peripheral [ Pulse Oximetry] Respiratory 18 18 Rate Blood Pressure 162/70 H 171/79 H [Left Upper Arm ] O2 Sat by Pulse 97 95 Oximetry - Orders/Labs/Meds Orders: Active Orders 24 hr Category Date Time Status Bladder Scan [RC] ASDIRECTED Care 11/01/19 12:56 Active Cardiac Monitoring [RC] . DIRECTED Care 11/01/19 15:49 Active Peripheral IV Care [RC] . DIRECTED Care 11/01/19 12:00 Active Nothing Per Oral Diet [DIET] Diet 11/01/19 Breakfast Active Abdomen Pelvis w Cont [CT] Stat Exams 11/01/19 14:17 Taken Abdomen Series w Chest 1V [CR] Stat Exams 11/01/19 12:00 Taken Lactated Ringers [Ringers, Lactated] 1,000 ml Med 11/01/19 16:00 Active IV ASDIRECTED Sodium Chloride 0.9% [Saline Flush] Med 11/01/19 11:59 Active 10 ml FLUSH ASDIRECTED PRN Obtain Past Medical Record [OM.PC] Urgent Oth 11/01/19 12:00 Active Peripheral IV Insertion Adult [OM.PC] Stat Oth 11/01/19 12:00 Ordered Resuscitation Status Stat Resus Stat 11/01/19 11:59 Ordered Medication Orders Lactated Ringer's (Ringers, Lactated) 1,000 mls @ 100 mls/hr IV ASDIRECTED JALEN Last Admin: 11/01/19 15:56 Dose: 100 mls/hr Sodium Chloride (Saline Flush) 10 ml FLUSH ASDIRECTED PRN PRN Reason: Keep Vein Open Last Admin: 11/01/19 15:56 Dose: 10 ml Admin: 11/01/19 13:44 Dose: 10 ml Admin: 11/01/19 13:43 Dose: 10 ml Admin: 11/01/19 13:41 Dose: 10 ml Labs: Laboratory Tests 11/01/19 11/01/19 11/01/19 Range/Units 12:50 12:50 12:50 WBC 13.0 H (4.0-10.2) K/uL RBC 4.72 (4.33-5.41) M/uL Hgb 14.2 (13.1-16.8) g/dL Hct 43.2 (39.0-49.0) % MCV 91.5 (84.0-98.0) fL MCH 30.1 (28.2-33.3) pg MCHC 32.9 (31.7-36.0) g/dL RDW 13.6 (11.2-14.1) % Plt Count 229 (150-350) K/uL Neut % (Auto) 83.7 H (45.0-80.0) % Lymph % (Auto) 8.3 L (10.0-50.0) % [place] % (Auto) 7.5 (2.0-14.0) % Eos % (Auto) 0.1 (0.0-5.0) % Baso % (Auto) 0.4 (0.0-2.0) % Neut # (Auto) 10.90 H (1.40-7.00) K/uL Lymph # (Auto) 1.08 (0.50-3.50) K/uL [place] # (Auto) 0.97 (0.00-1.00) K/uL Eos # (Auto) 0.01 (0.00-0.50) K/uL Baso # (Auto) 0.05 (0.00-0.20) K/uL INR Sodium 141 (136-145) mmol/L Potassium 3.6 (3.5-5.1) mmol/L Chloride 105 (98-107) mmol/L Carbon Dioxide 24.7 (21.0-32.0) mmol/L BUN 12 (7-18) mg/dL Creatinine 0.77 (0.51-1.17) mg/dL Est Cr Clr Drug Dosing TNP Estimated GFR (MDRD) > 60 mL/min Glucose 181 H (74-106) mg/dL Lactic Acid (0.4-2.0) mmol/L Uric Acid 4.0 (2.6-7.2) mg/dL Calcium 8.7 (8.5-10.1) mg/dL Magnesium 1.7 L (1.8-2.4) mg/dL Total Bilirubin 3.1 H (0.2-1.0) mg/dL AST 285 H (15-37) U/L ALT 377 H (12-78) U/L Alkaline Phosphatase 353 H (46-116) IU/L Total Protein 7.7 (6.4-8.2) g/dL Albumin 3.6 (3.4-5.0) g/dL Amylase 1217 H (25-115) U/L Lipase > 1500 H (73-393) U/L 11/01/19 11/01/19 Range/Units 12:50 13:25 WBC (4.0-10.2) K/uL RBC (4.33-5.41) M/uL Hgb (13.1-16.8) g/dL Hct (39.0-49.0) % MCV (84.0-98.0) fL MCH (28.2-33.3) pg MCHC (31.7-36.0) g/dL RDW (11.2-14.1) % Plt Count (150-350) K/uL Neut % (Auto) (45.0-80.0) % Lymph % (Auto) (10.0-50.0) % [place] % (Auto) (2.0-14.0) % Eos % (Auto) (0.0-5.0) % Baso % (Auto) (0.0-2.0) % Neut # (Auto) (1.40-7.00) K/uL Lymph # (Auto) (0.50-3.50) K/uL [place] # (Auto) (0.00-1.00) K/uL Eos # (Auto) (0.00-0.50) K/uL Baso # (Auto) (0.00-0.20) K/uL INR 1.0 Sodium (136-145) mmol/L Potassium (3.5-5.1) mmol/L Chloride (98-107) mmol/L Carbon Dioxide (21.0-32.0) mmol/L BUN (7-18) mg/dL Creatinine (0.51-1.17) mg/dL Est Cr Clr Drug Dosing Estimated GFR (MDRD) mL/min Glucose (74-106) mg/dL Lactic Acid 1.3 (0.4-2.0) mmol/L Uric Acid (2.6-7.2) mg/dL Calcium (8.5-10.1) mg/dL Magnesium (1.8-2.4) mg/dL Total Bilirubin (0.2-1.0) mg/dL AST (15-37) U/L ALT (12-78) U/L Alkaline Phosphatase (46-116) IU/L Total Protein (6.4-8.2) g/dL Albumin (3.4-5.0) g/dL Amylase (25-115) U/L Lipase (73-393) U/L Meds: Medications Generic Name Dose Route Start Last Admin Trade Name Naseemq PRN Reason Stop Dose Admin Lactated Ringer's 1,000 mls @ 100 mls/hr 11/01/19 16:00 11/01/19 15:56 Ringers, Lactated IV 100 mls/hr ASDIRECTED JALEN Administration Sodium Chloride 10 ml 11/01/19 11:59 11/01/19 15:56 Saline Flush FLUSH 10 ml ASDIRECTED PRN Administration Keep Vein Open Discontinued Medications Generic Name Dose Route Start Last Admin Trade Name Freq PRN Reason Stop Dose Admin Famotidine 40 mg 11/01/19 11:59 11/01/19 13:41 Pepcid IVPUSH 11/01/19 12:00 40 mg ONETIME ONE Administration Ceftriaxone Sodium 1 gm/ 100 mls @ 200 mls/hr 11/01/19 13:31 11/01/19 13:48 Sodium Chloride IV 11/01/19 14:00 200 mls/hr ONETIME ONE Administration Metronidazole 500 mg/ Premix 100 mls @ 100 mls/hr 11/01/19 13:31 11/01/19 13: 48 IV 11/01/19 14:30 100 mls/hr ONETIME ONE Administration Iopamidol 100 ml 11/01/19 14:33 11/01/19 15:10 Isovue-300 (61%) IVPUSH 11/01/19 14:34 100 ml ONETIME ONE Administration Ondansetron HCl 4 mg 11/01/19 11:59 11/01/19 13:42 Zofran IVPUSH 11/01/19 12:00 4 mg ONETIME ONE Administration Pantoprazole Sodium 40 mg 11/01/19 11:59 11/01/19 13:41 Protonix Iv IVPUSH 11/01/19 12:00 40 mg ONETIME ONE Administration - Radiology Interpretation Free Text/Narrative:: Acute abdominal x-rays shows evidence of mild to moderate pulmonary obstructive disease with no cardiomegaly, CHF, pulmonary infiltrates, pneumothorax, fluid levels, free air, ileus, obstruction, etc. Moderate osteoarthritic changes. Moderate calcification in the left upper quadrant consistent with possible left- sided pelvic nephrolithiasis with calcifications in the right upper quadrant consistent with either cholelithiasis and/or nephrolithiasis and moderate diffuse stool noted with no significant gaseous distention, etc. Telephone consultation at 15:30 hours with the radiology department at [facility]. Preliminary verbal read of CT scan of the abdomen and pelvis with IV contrast is positive for acute pancreatitis likely secondary to cholelithiasis. There is some sludge noted in the duodenum with no direct evidence of an obstructing stone in the pancreatic duct. Minor ascites also present. Suspected left-sided pelvic nephrolithiasis was not confirmed in the CT scan. Bladder scan shows some urinary retention with 485 mls of urine present. air sampling and monitoring shows normal sinus rhythm in the 60s with no ectopy or arrhythmia. CT Results Date: 11/01/19 CT Results Time: 15:30 Departure - Departure Time of Disposition: 16:12 Disposition: DC/Tfer to Acute Hospital 02 Condition: Fair Clinical Impression: LFT elevation, Peptic reflux disease, Mixed anxiety depressive disorder, Hypomagnesemia Pancreatitis Qualifiers: Chronicity: acute Pancreatitis type: biliary Acute pancreatitis complication: no infection or necrosis Qualified Code(s): K85.10 - Biliary acute pancreatitis without necrosis or infection Coronary artery disease Qualifiers: Coronary Disease-Associated Artery/Lesion type: jamul artery [place] vs. transplanted heart: jamul heart Associated angina: without angina Qualified Code(s): I25.10 - Atherosclerotic heart disease of jamul coronary artery without angina pectoris Sleep apnea Qualifiers: Sleep apnea type: obstructive Qualified Code(s): G47.33 - Obstructive sleep apnea (adult) (pediatric) Osteoarthritis Qualifiers: Osteoarthritis location: multiple joints Osteoarthritis type: primary Qualified Code(s): M15.0 - Primary generalized (osteo)arthritis Hypertension Qualifiers: Hypertension type: essential hypertension Qualified Code(s): I10 - Essential ( primary) hypertension Petit mal epilepsy Qualifiers: Intractability: not intractable Status epilepticus: without status epilepticus Qualified Code(s): G40.A09 - Absence epileptic syndrome, not intractable, without status epilepticus BPH (benign prostatic hyperplasia) Qualifiers: Lower urinary tract symptom presence: symptoms present Lower urinary tract symptom detail: urinary retention Qualified Code(s): N40.1 - Benign prostatic hyperplasia with lower urinary tract symptoms - Discharge Information *PRESCRIPTION DRUG MONITORING PROGRAM REVIEWED*: Not Applicable *COPY OF PRESCRIPTION DRUG MONITORING REPORT IN PATIENT SAAD: Not Applicable Referrals: Adriane Lay PA-C [Primary Care Provider] - Forms: ED Department Discharge, Interfacility Transfer EMTALA Sepsis Event Note - Evaluation Sepsis Screening Result: No Definite Risk - Focused Exam Vital Signs: Vital Signs Temp Pulse Resp BP Pulse Ox 11/01/19 16:00 36.9 C 64 18 171/79 H 95 11/01/19 11:30 36.6 C 67 18 162/70 H 97 Date Exam was Performed: 11/01/19 Time Exam was Performed: 16:27 - Problem List & Annotations (1) Pancreatitis SNOMED Code(s): 19089817 Code(s): K85.90 - ACUTE PANCREATITIS WITHOUT NECROSIS OR INFECTION, UNSP Status: Acute Priority: High Current Visit: No Onset Date: 11/01/19 Annotation/Comment:: CT scan results as above. Likely gallstone obstructive pancreatitis with secondary LFTs elevation including hyperbilirubinemia. ERCP is indicated. Telephone consultation at 15:[address] Dalton, hospitalist at [facility] in [place], who does accept the patient for direct admission, with no further treatment recommendations given. Ambulance transfer with faucets assembler accompaniment. Note mild leukocytosis with patient afebrile at this time. IV Rocephin and IV Flagyl given as GI prophylaxis. In addition, note that patient was given high-dose IV Pepcid and IV Protonix immediately upon arrival to our facility with improved abdominal pain and symptoms with this therapy. Patient was kept nothing by mouth throughout this hospitalization. Per description of accepting providers GI consultation for probable ERCP as above with surgical consultation depending on his clinical course. Note that lipase could not be completely diluted for accurate reading. He was an extremely difficult lab draw and IV placement, which did delay patient care and assessment somewhat without sequelae. Lactated ringer initiated shortly prior to transfer. Qualifiers: Chronicity: acute Pancreatitis type: biliary Acute pancreatitis complication: no infection or necrosis Qualified Code(s): K85.10 - Biliary acute pancreatitis without necrosis or infection (2) LFT elevation SNOMED Code(s): 954199424, 994675460 Code(s): R94.5 - ABNORMAL RESULTS OF LIVER FUNCTION STUDIES Status: Acute Priority: High Current Visit: No Onset Date: 11/01/19 Annotation/Comment :: As above. (3) Hypomagnesemia SNOMED Code(s): 203464362 Code(s): E83.42 - HYPOMAGNESEMIA Status: Acute Priority: Medium Current Visit: No Onset Date: 11/01/19 Annotation/Comment:: Consider either IV or oral magnesium supplementation by accepting providers. (4) Coronary artery disease SNOMED Code(s): 70706782 Code(s): I25.10 - ATHSCL HEART DISEASE OF [place] CORONARY ARTERY W/O ANG PCTRS Status: Chronic Priority: High Current Visit: No Annotation/ Comment:: Patient denies any chest pain or anginal type symptoms. Known heart disease with history of recurrent PTCA/stent 2 as above, however negative recent Lexiscan/PET evaluation at [facility] on 10/15/19. Patient placed on telemetry prior to transfer. Qualifiers: Coronary Disease-Associated Artery/Lesion type: [place] artery [place] vs. transplanted heart: [place] heart Associated angina: without angina Qualified Code(s): I25.10 - Atherosclerotic heart disease of [place] coronary artery without angina pectoris (5) Hypertension SNOMED Code(s): 28921128 Code(s): I10 - ESSENTIAL (PRIMARY) HYPERTENSION Status: Chronic Priority : Medium Current Visit: No Annotation/Comment:: Blood pressures somewhat elevated in the emergency room likely secondary to discomfort. Continue to observe closely by accepting providers. Qualifiers: Hypertension type: essential hypertension Qualified Code(s): I10 - Essential (primary) hypertension (6) Mixed anxiety depressive disorder SNOMED Code(s): 786641390 Code(s): F41.8 - OTHER SPECIFIED ANXIETY DISORDERS Status: Chronic Priority: Medium Current Visit: No Annotation/Comment:: Stable per patient history, although somewhat moderate control based on today's evaluation. Continue to observe closely by his regular and accepting providers. (7) Osteoarthritis SNOMED Code(s): 119742365 Code(s): M19.90 - UNSPECIFIED OSTEOARTHRITIS, UNSPECIFIED SITE Status: Chronic Priority: Medium Current Visit: No Annotation/Comment:: Stable by patient history Qualifiers: Osteoarthritis location: multiple joints Osteoarthritis type: primary Qualified Code(s): M15.0 - Primary generalized (osteo)arthritis (8) Peptic reflux disease SNOMED Code(s): 270898170 Code(s): K21.9 - GASTRO-ESOPHAGEAL REFLUX DISEASE WITHOUT ESOPHAGITIS Status: Chronic Priority: Medium Current Visit: No Annotation/Comment:: Stable by patient history. High-dose IV Pepcid given as GI prophylaxis as above. (9) Petit mal epilepsy SNOMED Code(s): 82468097, 60532868 Code(s): G40.A09 - ABSENCE EPILEPTIC SYNDROME, NOT INTRACTABLE, W/O STAT EPI Status: Chronic Priority: Medium Current Visit: No Annotation/Comment: : Stable by patient history with patient closely followed by neurology at [facility] in [place]. The patient did take his morning medications with his own Keppra and Dilantin 15:30 doses given prior to patient transfer per his request. Qualifiers: Intractability: not intractable Status epilepticus: without status epilepticus Qualified Code(s): G40.A09 - Absence epileptic syndrome, not intractable, without status epilepticus (10) Sleep apnea SNOMED Code(s): 67739254 Code(s): G47.30 - SLEEP APNEA, UNSPECIFIED Status: Chronic Priority: Medium Current Visit: No Annotation/Comment:: No CPAP use with chronic insomnia and known sleep apnea? Patient does have not have a unit. In addition , possible COPD by chest x-ray no current medical therapy. Consider weight loss in moderation, pulmonology referral, etc. Qualifiers: Sleep apnea type: obstructive Qualified Code(s): G47.33 - Obstructive sleep apnea (adult) (pediatric) (11) BPH (benign prostatic hyperplasia) SNOMED Code(s): 699620244 Code(s): N40.0 - BENIGN PROSTATIC HYPERPLASIA WITHOUT LOWER URINRY TRACT SYMP Status: Chronic Priority: High Current Visit: No Onset Date: Annotation/Comment:: Bladder scan shows urinary retention with patient only able to urinate 50 mls prior to discharge. Consider urology referral, Gonzalez catheter placement, etc. by accepting providers. Qualifiers: Lower urinary tract symptom presence: symptoms present Lower urinary tract symptom detail: urinary retention Qualified Code(s): N40.1 - Benign prostatic hyperplasia with lower urinary tract symptoms; R33.8 - Other retention of urine - Problem List Review Problem List Initiated/Reviewed/Updated: Yes - My Orders Last 24 Hours: My Active Orders 11/01/19 11:59 Sodium Chloride 0.9% [Saline Flush] 10 ml FLUSH ASDIRECTED PRN Resuscitation Status Stat 11/01/19 12:00 Peripheral IV Care [RC] . DIRECTED Abdomen Series w Chest 1V [CR] Stat Obtain Past Medical Record [OM.PC] Urgent Peripheral IV Insertion Adult [OM.PC] Stat 11/01/19 12:56 Bladder Scan [RC] ASDIRECTED 11/01/19 14:17 Abdomen Pelvis w Cont [CT] Stat 11/01/19 15:49 Cardiac Monitoring [RC] . DIRECTED 11/01/19 16:00 Lactated Ringers [Ringers, Lactated] 1,000 ml IV ASDIRECTED 11/01/19 Breakfast Nothing Per Oral Diet [DIET] - Assessment/Plan Last 24 Hours: My Active Orders 11/01/19 11:59 Sodium Chloride 0.9% [Saline Flush] 10 ml FLUSH ASDIRECTED PRN Resuscitation Status Stat 11/01/19 12:00 Peripheral IV Care [RC] . DIRECTED Abdomen Series w Chest 1V [CR] Stat Obtain Past Medical Record [OM.PC] Urgent Peripheral IV Insertion Adult [OM.PC] Stat 11/01/19 12:56 Bladder Scan [RC] ASDIRECTED 11/01/19 14:17 Abdomen Pelvis w Cont [CT] Stat 11/01/19 15:49 Cardiac Monitoring [RC] . DIRECTED 11/01/19 16:00 Lactated Ringers [Ringers, Lactated] 1,000 ml IV ASDIRECTED 11/01/19 Breakfast Nothing Per Oral Diet [DIET] Assessment:: As above Plan: As above. Extensive precautions were given to the patient and his brother, who are in agreement with the treatment plan. Ambulance transfer to [place] with faucets assembler accompaniment as above.
[2019-11-01 13:19] LABS: CHLORIDE,CL 105 mmol/L (98-107); SODIUM,NA 141 mmol/L (136-145)
[2019-11-01] MEDS ORDERED: metroNIDAZOLE/Normal Saline 500 MG in Premix Bag 1 BAG IV ONE (13:31)
[2019-11-01] MEDS ORDERED: cefTRIAXone 1 GM in Sodium Chloride 0.9% 100 ML IV ONE (13:31)
[2019-11-01] MEDS: Sodium Chloride 0.9% 10 ML Syringe FLUSH PRN ×4 (13:41→15:56)
[2019-11-01] MEDS ORDERED: Iopamidol 612 MG/ML 100 ML Bottle IVPUSH ONE (14:33)
[2019-11-01] MEDS ORDERED: Lactated Ringers 1,000 ML IV SCH (16:00)
[2019-11-01 16:23] VITALS: BP 171/79; PULSE 64
== END 2019-11-01 16:10 ==
LOC: LL.ED 11:30
DX: K85.10 Biliary acute pancreatitis without necrosis or infection (principal); N40.1 Benign prostatic hyperplasia with lower urinary tract symptoms; R33.8 Other retention of urine; G40.A09 Absence epileptic syndrome, not intractable, without status epilepticus; G47.33 Obstructive sleep apnea (adult) (pediatric); K21.9 Gastro-esophageal reflux disease without esophagitis; M15.0 Primary generalized (osteo)arthritis; F41.8 Other specified anxiety disorders; I10 Essential (primary) hypertension; I25.10 Atherosclerotic heart disease of native coronary artery without angina pectoris; E83.42 Hypomagnesemia; R94.5 Abnormal results of liver function studies; Z88.1 Allergy status to other antibiotic agents; Z88.2 Allergy status to sulfonamides; Z88.8 Allergy status to other drugs, medicaments and biological substances; Z79.82 Long term (current) use of aspirin; Z79.899 Other long term (current) drug therapy
CPT/HCPCS: 36415; 51798; 74022; 74177; 80053; 82150; 82272; 83605; 83690; 83735; 84550; 85025; 85610; 96365; 96367; 96375; 99285; C9113; J0696; J2405; J3490; J7050; J7120; Q9967

== ENCOUNTER 2020-04-15 09:33 | Day surgery (SDC) | payer MEDICARE, OTHER ==
[~2020-04-15 09:33] MED LIST: Midazolam 1 MG/ML 2 ML SDV ONE; Propofol 200 MG/20 ML SDV ONE
[2020-04-15] MEDS ORDERED: Sodium Chloride 0.9% 10 ML Syringe FLUSH PRN (10:00)
[2020-04-15] MEDS ORDERED: Lactated Ringers 1,000 ML IV SCH (10:00)
[2020-04-15] MEDS ORDERED: Midazolam 1 MG/ML 2 ML SDV ONE (12:04)
[2020-04-15] MEDS ORDERED: Lidocaine 2% 5 ML SDV ONE (12:04)
[2020-04-15] MEDS ORDERED: Propofol 200 MG/20 ML SDV ONE (12:04)
--- NOTE | 2020-04-15 12:04 | PCM.HPR ---
H & P Addendum review - H & P Addendum Review Date of Original H & P: 03/24/20 Date Reviewed: 04/15/20 Time Reviewed: 12:04 Patient was Examined: No Changes
--- NOTE | 2020-04-15 12:35 | PCM.OPNOTE ---
- General Post-Op/Procedure Note Date of Surgery/Procedure: 04/15/20 Operative Procedure(s): EGD with Bx, Colonoscopy Findings: Small antral ulcer, normal colon Pre Op Diagnosis: Anemia Post-Op Diagnosis: Same Anesthesia Technique: MAC Primary Surgeon: Gulshan Diaz Anesthesia Provider: Tessie Leonard Pathology: Bx Antrum EBL in mLs: 0 Complications: None Condition: Good
[2020-04-15 15:41] VITALS: BP 141/71; PULSE 50
--- NOTE | 2020-04-15 16:43 | OR ---
Date of Procedure: 04/15/2020 PREOPERATIVE DIAGNOSIS: Anemia. POSTOPERATIVE DIAGNOSES: 1. Small gastric ulcers of the antrum. 2. Normal colon. PROCEDURES: 1. EGD with biopsy. 2. Colonoscopy. ANESTHESIA: IV sedation. PROCEDURE IN DETAIL: Patient was brought to the procedure room, where he was placed on his left side and IV sedation administered. Oral bite block was placed and the upper endoscope advanced into the esophagus under direct vision without difficulty. The scope was advanced to the third portion of the duodenum. Duodenum and pylorus were normal. Antrum did show some swelling of the mucosa and some superficial ulcerations measuring a few millimeters in diameter. Photographs were taken. I did take biopsies from the antrum to check for Helicobacter pylori. The rest of the body and fundus were normal. Retroflexion was normal. Air was removed from the stomach and the scope withdrawn through the remaining esophagus, which appears normal. The patient tolerated this portion of the procedure well. Next, colonoscopy was performed after digital rectal exam was done, which was normal. Colonoscope was inserted and advanced to the level of the cecum without difficulty. Cecal position was confirmed by identifying the appendiceal lumen and ileocecal valve. Prep was fair with some thick liquid stool remaining though was not interfering much with visualization and large polyps or tumors would have been identified. Upon withdrawing the scope, the ascending, transverse, and descending colon were normal in appearance. Sigmoid colon and rectum were normal. Retroflexion was normal. Air was removed and the scope withdrawn. Patient tolerated the procedure well and returned to recovery in stable condition. The patient will remain on his omeprazole, and if H. pylori is present, this should be treated. PRANEETH ADAMS MD /[id number]
== END 2020-04-15 14:20 | disposition home or self-care (01) ==
LOC: LL.SDS 09:33
PROVIDERS: ATTEND Surgery
DX: K29.50 Unspecified chronic gastritis without bleeding (principal); K25.9 Gastric ulcer, unspecified as acute or chronic, without hemorrhage or perforation; D64.9 Anemia, unspecified; K31.9 Disease of stomach and duodenum, unspecified; I10 Essential (primary) hypertension; F32.9 Major depressive disorder, single episode, unspecified; F41.9 Anxiety disorder, unspecified; G40.909 Epilepsy, unspecified, not intractable, without status epilepticus; E78.00 Pure hypercholesterolemia, unspecified; E66.01 Morbid (severe) obesity due to excess calories; E78.5 Hyperlipidemia, unspecified; Z88.1 Allergy status to other antibiotic agents; Z88.2 Allergy status to sulfonamides; Z88.8 Allergy status to other drugs, medicaments and biological substances; Z79.899 Other long term (current) drug therapy; Z79.82 Long term (current) use of aspirin; Z98.890 Other specified postprocedural states; Z68.36 Body mass index [BMI] 36.0-36.9, adult
CPT/HCPCS: 00813; 43239; 45378; J2001; J2250; J2704; J7120

== ENCOUNTER 2020-04-16 15:50 | Emergency (ER) | payer MEDICARE, OTHER ==
[2020-04-16 15:59] VITALS: PULSE 66
--- NOTE | 2020-04-16 16:26 | EDM.PDOC ---
ED HPI GENERAL MEDICAL PROBLEM - General Chief Complaint: Upper Extremity Injury/Pain Stated Complaint: fell, shoulder injury Time Seen by Provider: 04/16/20 16:20 Source of Information: Reports: Patient, Family, RN History Limitations: Reports: No Limitations - History of Present Illness INITIAL COMMENTS - FREE TEXT/NARRATIVE: Gets weak on walking for the last several years. Has fallen three times previously. Today climbing hill, weak, and legs gave out. Controlled fall to the ground landing on left shoulder with direct blow. Pain since. 6-10, dull ache, no radiation, and no new weakness. Stroke at has rendered left side weak and insensate. No antecedent complaints. No other injury. Specifically no head strike, LOC, neck pain, nor back injury. Had no chest pain , near-syncope, palpitations, nor neuro complaints. Some sympathomimetic outflow since. Duration: Minutes:, Waxing/Waning Location: Reports: Lower Extremity, Left Associated Symptoms: Reports: Diaphoresis, Nausea/Vomiting. Denies: Confusion, Chest Pain, Seizure, Shortness of Breath, Syncope, Weakness Left Shoulder Pain Score (Numeric/FACES): 4 - Related Data Allergies Allergy/AdvReac Type Severity Reaction Status Date / Time levofloxacin [From Levaquin] Allergy Dizziness Verified 04/16/20 15:52 Sulfa (Sulfonamide Allergy Cannot Verified 04/16/20 15:52 Antibiotics) Remember ticagrelor [From Brilinta] AdvReac Other Verified 04/16/20 15:52 Home Meds: Home Meds Calcium Carbonate/Vitamin D3 [Calcium 600 + Vit D 200] 1 each PO DAILY 07/29/15 [History] Escitalopram [Lexapro] 5 mg PO BEDTIME 07/29/15 [History] atorvaSTATin [Lipitor] 40 mg PO DAILY@2200 07/29/15 [History] levETIRAcetam [Keppra] 1,000 mg PO DAILY@1530 07/29/15 [History] levETIRAcetam [Keppra] 2,000 mg PO DAILY@0730,2330 07/29/15 [History] Ibuprofen [Motrin] 200 mg PO Q4H PRN 02/26/17 [History] Sennosides/Docusate Sodium [Senna-S Tablet] 1 each PO BID PRN 02/26/17 [History] Aspirin [Halfprin] 81 mg PO DAILY 08/02/19 [History] Clopidogrel Bisulfate [Clopidogrel] 1 tab PO DAILY 08/02/19 [History] Cyanocobalamin (Vitamin B12) [Vitamin B12] 1,000 mcg PO QPM 08/02/19 [History] carvediloL [Carvedilol] 6.25 mg PO QPM 08/02/19 [History] Isosorbide Mononitrate [Isosorbide Mononitrate ER] 30 mg PO BEDTIME 09/25/19 [ History] Doxylamine Succinate [Unisom] 100 mg PO BEDTIME PRN 11/01/19 [History] bisacodyL [Dulcolax] 10 mg RC DAILY PRN 11/01/19 [History] Nitroglycerin 0.4 mg SL ASDIRECTED PRN 04/14/20 [History] Omeprazole 40 mg PO DAILY 04/14/20 [History] Phenytoin 100 mg PO DAILY@1530 04/14/20 [History] Phenytoin 200 mg PO BID@0730,2330 04/14/20 [History] Melatonin 10 mg PO BEDTIME 04/15/20 [History] carvediloL [Carvedilol] 12.5 mg PO DAILY 04/15/20 [History] Past Medical History HEENT History: Reports: Hard of Hearing Other HEENT History: Patient wears reading glasses. Moderate bilateral presbycusis with no current hearing aide therapy. Cardiovascular History: Reports: CAD, High Cholesterol, Hypertension Other Cardiovascular History: Coronary artery disease initially diagnosed in 2014 with procedures as below. PACs, PVCs and bigeminy with exercise. Bradycardia secondary to medications. Minimal diffuse valvular disease with grade 1 diastolic dysfunction and moderate pulmonary hypertension by echocardiogram. Respiratory History: Reports: Sleep Apnea Other Respiratory History: COPD by chest x-ray with no current medical therapy. He does not have a CPAP machine. Gastrointestinal History: Reports: Chronic Constipation, Gastritis, Helicobacter Pylori, PUD, Other (See Below) Other Gastrointestinal History: H. pylori diagnosed on 06/30/12. Genitourinary History: Reports: BPH, Prostate Disorder, UTI, Recurrent Musculoskeletal History: Reports: Arthritis, Other (See Below) Other Musculoskeletal History: spastic hemiplegia Neurological History: Reports: CVA, Migraines, Seizure Other Neuro History: Petit mal seizures 1963 with last known seizure on 03/10/06. Head concussion in 1962 with apparent cerebral injury at resulting in right-sided scar requiring surgery as below. Head injury from a horse in 1962. Encephalomalacia by CT scan on 08/02/19. Psychiatric History: Reports: Anxiety Other Psychiatric History: Chronic insomnia. Suicide attempts X 4 in 1970. Previous suicidal thoughts regarding his severe medical history. Endocrine/Metabolic History: Reports: Obesity/BMI 30+ Other Endocrine/Metabolic History: Hypoalbuminemia. Hematologic History: Reports: Blood Transfusion(s), Other (See Below) Other Hematologic History: Blood transfusion in 1974 at time of brain surgery as below. Immunologic History: Reports: None Oncologic (Cancer) History: Reports: None Dermatologic History: Reports: None - Infectious Disease History Infectious Disease History: Reports: Helicobacter Pylori, Mumps. Denies: C- Difficile, Chicken Pox, Measles, Meningitis, Mononucleosis, MRSA, Pertussis ( Whooping Cough), Rheumatic Fever, Rubella, Scarlet Fever, Shingles, TB, VRE - Past Surgical History GI Surgical History: Reports: Cholecystectomy, Colonoscopy, EGD - Past Imaging History Past Imaging History: Reports: Angiography (Last heart catheterization on with previous catheterization on 01/21/15.), Cardiac Echo (Last on 02/15/17 with ejection fraction of 75% with otherwise findings as above. Previous echocardiogram on 12/17/13.), CAT Scan (CT of the head on 08/04/19 and 08/02/19.), DEXA Scan (03/06/16 and 02/25/13.), Holter Monitor (06/04/17), MRI (Right shoulder in about 2005), Sleep Study (02/13/19), Stress Testing (LexiscanPET evaluation on 10/15/19 with ejection fraction of 67%. Cardiolite Stress test on 01/20/15 and 04/18/16. Low level cardiac stress test on 03/08/17 and 02/02/15.) - History Comment History Comment: He is a somewhat poor historian with patient not wishing to discuss fully his family's previous medical history, etc. during today's visit. Social & Family History - Family History Family Medical History: Noncontributory Cardiac: Reports: High Cholesterol, Hypertension, Other (See Below) Other Cardiac Family History: Hyperlipidemia and hypertension in brother. Respiratory: Reports: COPD, Other (See Below) Other Respiratory Family Hisory: Maternal uncle with COPD. Endocrine/Metabolic: Reports: Diabetes, type II, Obesity/MBI 30+, Other (See Below) Other Endocrine/Metabolic Family History: Brother with borderline diabetes and obesity. Oncologic: Reports: Lung, Non-Hodgkin's Lymphoma, Other (See Below) Other Oncologic Family History: Paternal grandfather with lung cancer in his 60s with history of tobacco use. Father with history of lymphoma possibly fatal at age 80. Maternal uncle with unknown type of cancer. 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 Denies: Chills, Fever Eyes: Reports: No Symptoms Respiratory: Denies: Shortness of Breath, Pleuritic Chest Pain, Cough Cardiovascular: Denies: Chest Pain, Edema, Irregular Heart Rate, Lightheadedness , Palpitations, Syncope GI/Abdominal: Reports: Nausea Genitourinary: Denies: Incontinence Neurological: Reports: Pre-Existing Deficit Psychiatric: Reports: No Symptoms ED EXAM, GENERAL - Physical Exam Exam: See Below Exam Limited By: No Limitations General Appearance: Alert, Moderate Distress, Other (Pale and diaphoretic) Eye Exam: Bilateral Eye: EOMI, PERRL Nose: No: Nasal Drainage Head: Atraumatic, Normocephalic. No: Facial Swelling Neck: Normal Inspection, Supple, Non-Tender, Full Range of Motion Respiratory/Chest: No Respiratory Distress, Lungs Clear, Normal Breath Sounds, No Accessory Muscle Use, Chest Non-Tender Cardiovascular: Normal Peripheral Pulses, Regular Rate, Rhythm, No Edema, No Gallop, No JVD GI/Abdominal: Normal Bowel Sounds, Non-Tender Extremities: Normal Inspection, Normal Range of Motion, Other (Left superior shoulder tender at AC junction. CMS intact distally.) Neurological: Alert, Oriented, CN II-XII Intact, Normal Cognition, Other (Left weakness and hypoethesia as per Hx) Psychiatric: Normal Affect, Normal Mood Skin Exam: Cool, Diaphoretic ED TRAUMA EXTREMITY PROCEDURES - Splinting Left Upper Extremity Pre-Procedure NV Status: Normal Post-Procedure NV Status: Normal Splint Material: Sling Splint Design: Sling & Swathe Applied & Form Fitted By: Provider, Nurse Provider Post-Splint Application NV Check: NV Status Normal, Good Position Complications: No Course - Vital Signs Text/Narrative:: Stable VS throughout. Last Recorded V/S: Last Vital Signs Temp 97.9 F 04/16/20 15:57 Pulse 66 04/16/20 15:57 Resp 18 04/16/20 15:57 BP 144/80 H 04/16/20 16:45 Pulse Ox 97 04/16/20 15:57 - Orders/Labs/Meds Orders: Active Orders 24 hr Category Date Time Status Shoulder Comp Lt [CR] Stat Exams 04/16/20 16:02 Taken - Radiology Interpretation Free Text/Narrative:: Isolated minimally displaced far distal left clavicular Fx with AC joint maintained. Departure - Departure Time of Disposition: 17:11 Disposition: Home, Self-Care 01 Condition: Good Clinical Impression: Fracture of clavicle, Generalized weakness - Discharge Information *PRESCRIPTION DRUG MONITORING PROGRAM REVIEWED*: Yes *COPY OF PRESCRIPTION DRUG MONITORING REPORT IN PATIENT SAAD: No Instructions: Clavicle Fracture, [id number], Cast or Splint Care, Adult, Easy -to-Read, Pain Medicine Instructions, [id number] Referrals: Adriane Lay PA-C [Primary Care Provider] - Forms: ED Department Discharge Sepsis Event Note (ED) - Evaluation Sepsis Screening Result: No Definite Risk - Focused Exam Vital Signs: Vital Signs Temp Pulse Resp BP Pulse Ox 04/16/20 16:45 144/80 H 04/16/20 15:57 97.9 F 66 18 163/81 H 97 - My Orders Last 24 Hours: My Active Orders 04/16/20 16:02 Shoulder Comp Lt [CR] Stat - Assessment/Plan Last 24 Hours: My Active Orders 04/16/20 16:02 Shoulder Comp Lt [CR] Stat
[2020-04-16 16:59] VITALS: BP 144/80
== END 2020-04-16 16:51 | disposition home or self-care (01) ==
LOC: LL.ED 15:50
DX: S42.032A Displaced fracture of lateral end of left clavicle, initial encounter for closed fracture (principal); R53.1 Weakness; I10 Essential (primary) hypertension; E78.00 Pure hypercholesterolemia, unspecified; I25.10 Atherosclerotic heart disease of native coronary artery without angina pectoris; J44.9 Chronic obstructive pulmonary disease, unspecified; E66.9 Obesity, unspecified; F41.9 Anxiety disorder, unspecified; R56.9 Unspecified convulsions; Z86.73 Personal history of transient ischemic attack (TIA), and cerebral infarction without residual deficits; Z79.02 Long term (current) use of antithrombotics/antiplatelets; Z88.1 Allergy status to other antibiotic agents; Z88.2 Allergy status to sulfonamides; Z88.8 Allergy status to other drugs, medicaments and biological substances; Z79.899 Other long term (current) drug therapy; Z79.82 Long term (current) use of aspirin; W17.89XA Other fall from one level to another, initial encounter
CPT/HCPCS: 73030-LT; 99283-25

== ENCOUNTER 2021-11-19 20:25 | Observation (INO) | payer MEDICARE ==
[2021-11-19] MEDS ORDERED: Ketorolac 30 MG/ML SDV IM ONE (20:39)
[2021-11-19] MEDS ORDERED: Sodium Chloride 0.9% 10 ML Syringe FLUSH PRN (21:39)
[2021-11-19 22:49] LABS: ANION GAP 10.6 meq/L (7-15); CHLORIDE,CL 107 mmol/L (98-107); SODIUM,NA 144 mmol/L (136-145)
[2021-11-19] MEDS ORDERED: Acetaminophen 325 MG Tab PO PRN (22:56)
[2021-11-19] MEDS ORDERED: Nitroglycerin 0.4 MG Tab.SL SL PRN (22:58)
[2021-11-19] MEDS ORDERED: DOXYLAMINE SUCCINATE 25 MG PO PRN (22:58)
[2021-11-19] MEDS ORDERED: Bisacodyl 10 MG Supp RECTAL PRN (22:58)
[2021-11-19 23:01] LABS: RESPIRATORY SYNCYTIAL VIR NAA NEGATIVE (NEGATIVE)
[2021-11-19 23:03] LABS: CORONAVIRUS COVID-19 NAA POSITIVE (NEGATIVE)
[2021-11-20] MEDS: Phenytoin 100 MG Cap.ER PO SCH ×4 (02:51→23:14)
[2021-11-20] MEDS: levETIRAcetam 500 MG Tab PO SCH ×4 (02:51→23:13)
[2021-11-20] MEDS: Calcium Carbonate/Vitamin D3 625 MG-125 Unit Tab PO SCH (09:39)
[2021-11-20] MEDS: Ferrous Sulfate 325 MG Tab PO SCH (09:42)
[2021-11-20] MEDS: Clopidogrel 75 MG Tab PO SCH (09:42)
[2021-11-20] MEDS: Carvedilol 12.5 MG Tab PO SCH (09:43)
[2021-11-20] MEDS: Cetirizine 10 MG Tab PO SCH (09:43)
[2021-11-20] MEDS: Ascorbic Acid 500 MG Tab PO SCH (09:44)
[2021-11-20] MEDS: Aspirin 81 MG Tab.EC PO SCH (09:45)
[2021-11-20] MEDS: Omeprazole 20 MG Cap.CR PO SCH (09:48)
[2021-11-20] MEDS: Enoxaparin 40 MG/0.4 ML Syringe SUBCUT SCH (14:56)
[2021-11-20] MEDS ORDERED: Carvedilol 6.25 MG Tab PO SCH (18:00)
[2021-11-20] MEDS ORDERED: Cyanocobalamin (Vitamin B12) 1,000 MCG Tab PO SCH (18:00)
[2021-11-20] MEDS ORDERED: Escitalopram 20 MG Tab PO SCH (20:00)
[2021-11-20] MEDS ORDERED: Non-Formulary Medication 1 Each (Melatonin [Melatonin] 10 MG Tablet) PO SCH (20:00)
[2021-11-20] MEDS ORDERED: Isosorbide Mononitrate 30 MG Tab.ER PO SCH (20:00)
[2021-11-20] MEDS ORDERED: atorvaSTATin 40 MG Tab PO SCH (22:00)
[2021-11-21] MEDS: Phenytoin 100 MG Cap.ER PO SCH ×2 (09:34→15:31)
[2021-11-21] MEDS: Cetirizine 10 MG Tab PO SCH (09:35)
[2021-11-21] MEDS: levETIRAcetam 500 MG Tab PO SCH ×2 (09:35→15:31)
[2021-11-21] MEDS: Omeprazole 20 MG Cap.CR PO SCH (09:35)
[2021-11-21] MEDS: Carvedilol 12.5 MG Tab PO SCH (09:36)
[2021-11-21] MEDS: Ascorbic Acid 500 MG Tab PO SCH (09:36)
[2021-11-21] MEDS: Calcium Carbonate/Vitamin D3 625 MG-125 Unit Tab PO SCH (09:36)
[2021-11-21] MEDS: Aspirin 81 MG Tab.EC PO SCH (09:37)
[2021-11-21] MEDS: Enoxaparin 40 MG/0.4 ML Syringe SUBCUT SCH (09:37)
[2021-11-21] MEDS: Ferrous Sulfate 325 MG Tab PO SCH (09:37)
[2021-11-21] MEDS: Clopidogrel 75 MG Tab PO SCH (09:37)
[2021-11-21 16:50] VITALS: BP 122/58; PULSE 70
== END 2021-11-21 16:23 | disposition home or self-care (01) ==
LOC: LL.ED 20:25 → LL.SWG 22:40 → LL.MS 22:41
PROVIDERS: ADMIT Nurse Practitioner Family; ATTEND Nurse Practitioner Family
DX: R53.1 Weakness (principal); U07.1 COVID-19; G47.33 Obstructive sleep apnea (adult) (pediatric); I25.10 Atherosclerotic heart disease of native coronary artery without angina pectoris; E78.00 Pure hypercholesterolemia, unspecified; I10 Essential (primary) hypertension; J44.9 Chronic obstructive pulmonary disease, unspecified; G43.909 Migraine, unspecified, not intractable, without status migrainosus; G47.30 Sleep apnea, unspecified; Z98.890 Other specified postprocedural states; Z86.73 Personal history of transient ischemic attack (TIA), and cerebral infarction without residual deficits; Z79.899 Other long term (current) drug therapy; Z79.82 Long term (current) use of aspirin; Z88.8 Allergy status to other drugs, medicaments and biological substances; Z88.2 Allergy status to sulfonamides; W19.XXXA Unspecified fall, initial encounter
CPT/HCPCS: 0241U; 36415; 71046; 73560-RT; 80053; 83605; 83735; 83880; 84443; 84484; 85025; 93005; 96372; 97162-GP; 97165-GO; 97530-GP; 97535-GO; 99285-25; A9270-GY; G0378; J1650; J1885

== ENCOUNTER 2022-11-27 10:49 | Emergency (ER) | payer MEDICARE ==
[2022-11-27] MEDS ORDERED: Sodium Chloride 0.9% 10 ML Syringe FLUSH PRN (11:07)
[2022-11-27 11:56] LABS: ANION GAP 9.2 meq/L (7-15); CHLORIDE,CL 107 mmol/L (98-107); ESTIMATED GFR 92 mL/min (>=60); SODIUM,NA 143 mmol/L (136-145)
[2022-11-27 14:13] VITALS: BP 163/65; PULSE 58
== END 2022-11-27 13:20 | disposition home or self-care (01) ==
LOC: LL.ED 10:49
DX: S06.0X0A Concussion without loss of consciousness, initial encounter (principal); I25.10 Atherosclerotic heart disease of native coronary artery without angina pectoris; J44.9 Chronic obstructive pulmonary disease, unspecified; E78.00 Pure hypercholesterolemia, unspecified; I10 Essential (primary) hypertension; E66.9 Obesity, unspecified; Z88.1 Allergy status to other antibiotic agents; Z88.2 Allergy status to sulfonamides; Z79.899 Other long term (current) drug therapy; Z79.82 Long term (current) use of aspirin; Z90.49 Acquired absence of other specified parts of digestive tract; Z87.891 Personal history of nicotine dependence; W01.0XXA Fall on same level from slipping, tripping and stumbling without subsequent striking against object, initial encounter
CPT/HCPCS: 36415; 70450; 80053; 85025; 93005; 93010; 99284

== ENCOUNTER 2023-04-06 15:41 | Emergency (ER) | payer MEDICARE ==
[2023-04-06 15:45] VITALS: BP 150/75; PULSE 56
== END 2023-04-06 17:38 | disposition home or self-care (01) ==
LOC: LL.ED 15:41
DX: Z00.00 Encounter for general adult medical examination without abnormal findings (principal); I25.10 Atherosclerotic heart disease of native coronary artery without angina pectoris; E78.00 Pure hypercholesterolemia, unspecified; I10 Essential (primary) hypertension; J44.9 Chronic obstructive pulmonary disease, unspecified; M19.90 Unspecified osteoarthritis, unspecified site; E66.9 Obesity, unspecified; Z68.34 Body mass index [BMI] 34.0-34.9, adult; Z88.1 Allergy status to other antibiotic agents; Z88.2 Allergy status to sulfonamides; Z88.8 Allergy status to other drugs, medicaments and biological substances; Z79.899 Other long term (current) drug therapy; Z79.82 Long term (current) use of aspirin
CPT/HCPCS: 99282; 99284

== ENCOUNTER 2024-07-11 15:35 | Emergency (ER) | payer MEDICARE ==
[2024-07-11] MEDS ORDERED: Desmopressin 20 MCG in Sodium Chloride 0.9% 50 ML IV ONE (16:02)
[2024-07-11] MEDS: Tranexamic Acid 2,000 MG in Sodium Chloride 0.9% 100 ML IV ONE (16:41)
[2024-07-11] MEDS: Desmopressin 20 MCG in Sodium Chloride 0.9% 100 ML IV ONE (16:43)
[2024-07-11 16:51] LABS: BASOPHILS ABSOLUTE AUTO 0.06 K/uL (0.00-0.20); BASOPHILS PERCENT AUTO 0.5 % (0.0-2.0); EOSINOPHILS ABSOLUTE AUTO 0.12 K/uL (0.00-0.50); EOSINOPHILS PERCENT AUTO 1.1 % (0.0-5.0); HEMOGLOBIN 12.3 g/dL (13.1-16.8); LYMPHOCYTES ABSOLUTE AUTO 2.57 K/uL (0.50-3.50); LYMPHOCYTES PERCENT AUTO 23.1 % (10.0-50.0); MEAN CORPUSCULAR HEMOGLOBIN 30.8 pg (28.2-33.3); MEAN CORPUSCULAR HGB CONC 32.4 g/dL (31.7-36.0); MONOCYTES ABSOLUTE AUTO 1.47 K/uL (0.00-1.00); MONOCYTES PERCENT AUTO 13.2 % (2.0-14.0); NEUTROPHILS PERCENT AUTO 62.1 % (45.0-80.0); PLATELET COUNT,PLT 239 K/uL (150-350); RED CELL DISTRIBUTION WIDTH 13.2 % (11.2-14.1); WHITE BLOOD CELL COUNT,WBC 11.1 K/uL (4.0-10.2)
[2024-07-11 16:52] LABS: INR 1.1
[2024-07-11 17:00] LABS: ALANINE AMINOTRANSFERASE,ALT 22 U/L (12-78); ALKALINE PHOSPHATASE 137 IU/L (46-116); ANION GAP 9.7 meq/L (7-15); ASPARTATE AMNIOTRANSFERASE,AST 16 U/L (15-37); BILIRUBIN TOTAL 0.4 mg/dL (0.2-1.0); CARBON DIOXIDE,CO2 26.3 mmol/L (21.0-32.0); CHLORIDE,CL 104 mmol/L (98-107); POTASSIUM,K 3.9 mmol/L (3.5-5.1); PROTEIN TOTAL,TP 7.4 g/dL (6.4-8.2); SODIUM,NA 140 mmol/L (136-145)
[2024-07-11 17:07] LABS: ALBUMIN 3.6 g/dL (3.4-5.0); BLOOD UREA NITROGEN,BUN 17 mg/dL (7-18); CALCIUM 8.9 mg/dL (8.5-10.1); CREATININE 0.93 mg/dL (0.51-1.17); GLUCOSE RANDOM 121 mg/dL (70-99)
[2024-07-11 17:08] LABS: ESTIMATED GFR 85 mL/min (>=60)
[2024-07-11] MEDS: Sodium Chloride 0.9% 10 ML Syringe FLUSH PRN (17:23)
== END 2024-07-11 17:35 ==
LOC: LL.ED 15:35
DX: S06.310A Contusion and laceration of right cerebrum without loss of consciousness, initial encounter (principal); S06.6X0A Traumatic subarachnoid hemorrhage without loss of consciousness, initial encounter; Z90.49 Acquired absence of other specified parts of digestive tract; I10 Essential (primary) hypertension; I25.10 Atherosclerotic heart disease of native coronary artery without angina pectoris; E78.00 Pure hypercholesterolemia, unspecified; E66.9 Obesity, unspecified; Z79.82 Long term (current) use of aspirin; Z79.899 Other long term (current) drug therapy; Z88.8 Allergy status to other drugs, medicaments and biological substances; Z88.2 Allergy status to sulfonamides; Z88.1 Allergy status to other antibiotic agents; W19.XXXA Unspecified fall, initial encounter
CPT/HCPCS: 36415; 70450; 72040; 73060; 73070; 80053; 85025; 85610; 96365; 96367; 99284; J2597; J3490

== ENCOUNTER 2025-06-04 18:10 | Emergency (ER) | payer MEDICARE ==
[2025-06-04 18:49] VITALS: BP 154/65; PULSE 54
== END 2025-06-04 19:20 ==
LOC: LL.ED 18:10
DX: S01.01XA Laceration without foreign body of scalp, initial encounter (principal); I25.10 Atherosclerotic heart disease of native coronary artery without angina pectoris; E78.00 Pure hypercholesterolemia, unspecified; I10 Essential (primary) hypertension; Z86.73 Personal history of transient ischemic attack (TIA), and cerebral infarction without residual deficits; Z88.2 Allergy status to sulfonamides; Z88.8 Allergy status to other drugs, medicaments and biological substances; Z79.899 Other long term (current) drug therapy; Z79.82 Long term (current) use of aspirin; Z79.02 Long term (current) use of antithrombotics/antiplatelets; W26.8XXA Contact with other sharp object(s), not elsewhere classified, initial encounter; Y93.89 Activity, other specified
CPT/HCPCS: 12002; 99283